=== PATIENT | female | born 1930 | race Hispanic/Latino ===

== ENCOUNTER 2016-10-19 13:22 | Outpatient (CLI) | payer MEDICARE | END 2016-10-19 13:23 | disposition home or self-care (01) | LOC: VAS 13:22 | PROVIDERS: ATTEND Internal Medicine | DX: M79.661 Pain in right lower leg (principal); M79.662 Pain in left lower leg; M79.89 Other specified soft tissue disorders | CPT/HCPCS: 93970 ==

== ENCOUNTER 2018-07-27 19:16 | Inpatient (IN) | payer MEDICARE ==
--- NOTE | 2018-07-27 20:25 | Emergency Department Report ---
Blank Doc - Documentation Documentation: Can't see straight today. Feels that something has happen to her right eye. HX/O Dm 11, HTN, Stent placement Times 4. No pain. EMS was called to evaluated. All started 1000 am.
[2018-07-27 21:16] LABS: Basophils % (Auto) 0.5 % (0.0-1.8); Eosinophils # (Auto) 0.1 K/mm3 (0.0-0.4); Eosinophils % (Auto) 1.5 % (0.0-4.3); Hematocrit 37.3 % (30.3-42.9); Hemoglobin 13.2 gm/dl (10.1-14.3); Lymphocytes # (Auto) 1.8 K/mm3 (1.2-5.4); Lymphocytes % (Auto) 28.1 % (13.4-35.0); Mean Corpuscular HGB Conc 35 % (30-34); Mean Corpuscular Volume 86 fl (79-97); Monocytes # (Auto) 0.6 K/mm3 (0.0-0.8); Platelet Count 171 K/mm3 (140-440); Red Blood Count 4.36 M/mm3 (3.65-5.03); Red Cell Distribution Width 13.5 % (13.2-15.2)
[2018-07-27 21:31] LABS: INR 0.96 (0.87-1.13); Partial Thromboplastin Time 26.4 Sec. (24.2-36.6)
--- NOTE | 2018-07-27 21:44 | Emergency Department Report ---
ED Neuro Deficit HPI - General Chief Complaint: Dizziness Stated Complaint: UNABLE TO WALK STRAIGHT Time Seen by Provider: 07/27/18 21:18 Source: patient, family Mode of arrival: Ambulatory Limitations: No Limitations - History of Present Illness Initial Comments: Mrs. Cole is a very pleasant 88-year-old female with history of diabetes, hypertension, coronary artery disease status post 4 cardiac stents, congestive heart failure, arthritis, hypertension who presents with abnormal eye vision and difficulty walking since 10:30 AM this morning. The patient was up since 4 AM this mornin doing housework. She suddenly realized that she had blurry vision in the right eye with double visio at 1030 AM. Her head felt funny on the right side. When her finally arrived home, he noticed that she was leaning toward the right. No previous history of stroke. She had a recent eye exam this week. PCP is Dr. Wilkes in [place]. Records Coordinator is Dr. Glover. She currently is retired. She lives with her of 15 years. Denies headache. -: Sudden, This morning Location: other (right eye blurred vision difficulty with walking) Presenting Symptoms: Present: Blurred/Loss of Vision History of same: No Place: home Severity: mild Improves With: none Worsens With: none On Anticoagulants: No Context: sudden onset - Related Data Allergies/Adverse Reactions: Allergies Allergy/AdvReac Type Severity Reaction Status Date / Time No Known Allergies Allergy Unverified 10/19/16 13:22 ED Review of Systems ROS: Stated complaint: UNABLE TO WALK STRAIGHT Other details as noted in HPI Comment: All other systems reviewed and negative Constitutional: denies: fever, malaise Respiratory: denies: cough Cardiovascular: denies: chest pain ED Past Medical Hx - Past Medical History Previous Medical History?: Yes Hx Hypertension: Yes Hx CVA: No Hx Heart Attack/AMI: Yes Hx Congestive Heart Failure: Yes Hx Diabetes: Yes Hx Arthritis: Yes - Surgical History Hx Coronary Stent: Yes (4 stents) Additional Surgical History: Herniated Disc - Social History Smoking Status: Never Smoker Substance Use Type: None ED Neuro Physical Exam - General Limitations: No Limitations General appearance: alert, in no apparent distress Suspected Stroke: Yes - Head Head exam: Present: atraumatic, normocephalic - Eye Eye exam: Present: normal appearance - ENT ENT exam: Present: mucous membranes moist - Neck Neck exam: Present: normal inspection - Respiratory Respiratory exam: Present: normal lung sounds bilaterally. Absent: respiratory distress, wheezes, rales, rhonchi - Cardiovascular Cardiovascular Exam: Present: regular rate, normal rhythm, normal heart sounds. Absent: bradycardia, tachycardia, systolic murmur, diastolic murmur, rubs, gallop - GI/Abdominal GI/Abdominal exam: Present: soft, normal bowel sounds. Absent: distended, tenderness, guarding, rebound - Extremities Exam Extremities exam: Present: normal inspection - Back Exam Back exam: Present: normal inspection - Neurological Exam Neurological exam: Present: alert, oriented X3 - NIHSS Assessment Interval: Baseline 1a. Level of Consciousness: alert/keenly responsive 1b. LOC Questions: answers both correctly 1c. LOC Commands: performs tasks correctly 2. Best Gaze: partial gaze palsy 3. Visual: no visual loss 4. Facial Palsy: normal symmetrical movement 5b. Motor Arm Right: no drift 5a. Motor Arm Left: no drift 6a. Motor Leg Left: no drift 6b. Motor Leg Right: no drift 7. Limb Ataxia: absent 8. Sensory: normal 9. Best Language: no aphasia 10. Dysarthria: normal 11. Extinction/Inattention: no abnormality Total Score: 1 Stroke Severity: Minor Stroke - Psychiatric Psychiatric exam: Present: normal affect, normal mood - Skin Skin exam: Present: warm, dry, intact, normal color. Absent: rash ED Course Vital Signs 07/27/18 07/27/18 07/27/18 19:45 20:19 21:28 Temperature 98.0 F 98 F Pulse Rate 77 69 65 Respiratory 16 18 17 Rate Blood Pressure 174/72 174/72 Blood Pressure 207/72 [Right] O2 Sat by Pulse 95 94 98 Oximetry 07/27/18 07/27/18 07/27/18 21:49 22:08 22:32 Temperature Pulse Rate 62 65 64 Respiratory 14 Rate Blood Pressure 207/72 Blood Pressure 153/53 [Right] O2 Sat by Pulse 98 Oximetry - Lab Data Result diagrams: 07/27/18 22:27 07/27/18 22:27 Lab Results 07/27/18 07/27/18 07/27/18 Range/Units 20:53 20:53 20:53 WBC 6.5 (4.5-11.0) K/mm3 RBC 4.36 (3.65-5.03) M/mm3 Hgb 13.2 (10.1-14.3) gm/dl Hct 37.3 (30.3-42.9) % MCV 86 (79-97) fl MCH 30 (28-32) pg MCHC 35 H (30-34) % RDW 13.5 (13.2-15.2) % Plt Count 171 (140-440) K/mm3 Lymph % (Auto) 28.1 (13.4-35.0) % [place] % (Auto) 9.0 H (0.0-7.3) % Eos % (Auto) 1.5 (0.0-4.3) % Baso % (Auto) 0.5 (0.0-1.8) % Lymph # 1.8 (1.2-5.4) K/mm3 [place] # 0.6 (0.0-0.8) K/mm3 Eos # 0.1 (0.0-0.4) K/mm3 Baso # 0.0 (0.0-0.1) K/mm3 Seg Neutrophils % 60.9 (40.0-70.0) % Seg Neutrophils # 4.0 (1.8-7.7) K/mm3 PT 13.4 (12.2-14.9) Sec. INR 0.96 (0.87-1.13) APTT 26.4 (24.2-36.6) Sec. Sodium 141 (137-145) mmol/L Potassium 4.2 (3.6-5.0) mmol/L Chloride 100.4 (98-107) mmol/L Carbon Dioxide 29 (22-30) mmol/L Anion Gap 16 mmol/L BUN 13 (7-17) mg/dL Creatinine 0.6 L (0.7-1.2) mg/dL Estimated GFR > 60 ml/min BUN/Creatinine Ratio 22 % Glucose 146 H (65-100) mg/dL POC Glucose (70-105) Calcium 9.7 (8.4-10.2) mg/dL Total Bilirubin 0.50 (0.1-1.2) mg/dL AST 19 (5-40) units/L ALT 16 (7-56) units/L Alkaline Phosphatase 75 (35-129) units/L Troponin T (0.00-0.029) ng/mL Total Protein 6.5 (6.3-8.2) g/dL Albumin 4.3 (3.9-5) g/dL Albumin/Globulin Ratio 2.0 % Urine Color (Yellow) Urine Turbidity (Clear) Urine pH (5.0-7.0) Ur Specific [place] (1.003-1.030) Urine Protein (Negative) mg/dL Urine Glucose (UA) (Negative) mg/dL Urine Ketones (Negative) mg/dL Urine Blood (Negative) Urine Nitrite (Negative) Urine Bilirubin (Negative) Urine Urobilinogen (<2.0) mg/dL Ur Leukocyte Esterase (Negative) Urine WBC (Auto) (0.0-6.0) /HPF Urine RBC (Auto) (0.0-6.0) /HPF Plasma/Serum Alcohol (0-0.07) % 07/27/18 07/27/18 07/27/18 Range/Units 22:27 22:27 22:27 WBC 6.3 (4.5-11.0) K/mm3 RBC 4.39 (3.65-5.03) M/mm3 Hgb 13.0 (10.1-14.3) gm/dl Hct 38.0 (30.3-42.9) % MCV 87 (79-97) fl MCH 30 (28-32) pg MCHC 34 (30-34) % RDW 13.3 (13.2-15.2) % Plt Count 161 (140-440) K/mm3 Lymph % (Auto) 28.4 (13.4-35.0) % [place] % (Auto) 10.3 H (0.0-7.3) % Eos % (Auto) 1.4 (0.0-4.3) % Baso % (Auto) 0.5 (0.0-1.8) % Lymph # 1.8 (1.2-5.4) K/mm3 [place] # 0.6 (0.0-0.8) K/mm3 Eos # 0.1 (0.0-0.4) K/mm3 Baso # 0.0 (0.0-0.1) K/mm3 Seg Neutrophils % 59.4 (40.0-70.0) % Seg Neutrophils # 3.7 (1.8-7.7) K/mm3 PT 13.6 (12.2-14.9) Sec. INR 0.98 (0.87-1.13) APTT 26.5 (24.2-36.6) Sec. Sodium 140 (137-145) mmol/L Potassium 4.3 (3.6-5.0) mmol/L Chloride 99.6 (98-107) mmol/L Carbon Dioxide 30 (22-30) mmol/L Anion Gap 15 mmol/L BUN 13 (7-17) mg/dL Creatinine 0.6 L (0.7-1.2) mg/dL Estimated GFR > 60 ml/min BUN/Creatinine Ratio 22 % Glucose 141 H (65-100) mg/dL POC Glucose (70-105) Calcium 9.5 (8.4-10.2) mg/dL Total Bilirubin (0.1-1.2) mg/dL AST (5-40) units/L ALT (7-56) units/L Alkaline Phosphatase (35-129) units/L Troponin T < 0.010 (0.00-0.029) ng/mL Total Protein (6.3-8.2) g/dL Albumin (3.9-5) g/dL Albumin/Globulin Ratio % Urine Color (Yellow) Urine Turbidity (Clear) Urine pH (5.0-7.0) Ur Specific [place] (1.003-1.030) Urine Protein (Negative) mg/dL Urine Glucose (UA) (Negative) mg/dL Urine Ketones (Negative) mg/dL Urine Blood (Negative) Urine Nitrite (Negative) Urine Bilirubin (Negative) Urine Urobilinogen (<2.0) mg/dL Ur Leukocyte Esterase (Negative) Urine WBC (Auto) (0.0-6.0) /HPF Urine RBC (Auto) (0.0-6.0) /HPF Plasma/Serum Alcohol (0-0.07) % 07/27/18 07/27/18 07/27/18 Range/Units 22:27 23:19 23:30 WBC (4.5-11.0) K/mm3 RBC (3.65-5.03) M/mm3 Hgb (10.1-14.3) gm/dl Hct (30.3-42.9) % MCV (79-97) fl MCH (28-32) pg MCHC (30-34) % RDW (13.2-15.2) % Plt Count (140-440) K/mm3 Lymph % (Auto) (13.4-35.0) % [place] % (Auto) (0.0-7.3) % Eos % (Auto) (0.0-4.3) % Baso % (Auto) (0.0-1.8) % Lymph # (1.2-5.4) K/mm3 [place] # (0.0-0.8) K/mm3 Eos # (0.0-0.4) K/mm3 Baso # (0.0-0.1) K/mm3 Seg Neutrophils % (40.0-70.0) % Seg Neutrophils # (1.8-7.7) K/mm3 PT (12.2-14.9) Sec. INR (0.87-1.13) APTT (24.2-36.6) Sec. Sodium (137-145) mmol/L Potassium (3.6-5.0) mmol/L Chloride (98-107) mmol/L Carbon Dioxide (22-30) mmol/L Anion Gap mmol/L BUN (7-17) mg/dL Creatinine (0.7-1.2) mg/dL Estimated GFR ml/min BUN/Creatinine Ratio % Glucose (65-100) mg/dL POC Glucose 128 H (70-105) Calcium (8.4-10.2) mg/dL Total Bilirubin (0.1-1.2) mg/dL AST (5-40) units/L ALT (7-56) units/L Alkaline Phosphatase (35-129) units/L Troponin T (0.00-0.029) ng/mL Total Protein (6.3-8.2) g/dL Albumin (3.9-5) g/dL Albumin/Globulin Ratio % Urine Color Colorless (Yellow) Urine Turbidity Clear (Clear) Urine pH 6.0 (5.0-7.0) Ur Specific [place] 1.006 (1.003-1.030) Urine Protein <15 mg/dl (Negative) mg/dL Urine Glucose (UA) Neg (Negative) mg/dL Urine Ketones Neg (Negative) mg/dL Urine Blood Neg (Negative) Urine Nitrite Neg (Negative) Urine Bilirubin Neg (Negative) Urine Urobilinogen < 2.0 (<2.0) mg/dL Ur Leukocyte Esterase Tr (Negative) Urine WBC (Auto) 1.0 (0.0-6.0) /HPF Urine RBC (Auto) < 1.0 (0.0-6.0) /HPF Plasma/Serum Alcohol < 0.01 (0-0.07) % - EKG Data -: EKG Interpreted by Me EKG shows normal: sinus rhythm, axis, intervals, QRS complexes, ST-T waves Rate: normal - Radiology Data Radiology results: report reviewed CT head without acute process, CT angiogram neck and head without significant stenosis or aneurysm. - Medical Decision Making Mrs. Cole presents with findings of cranial nerve palsy. On exam mild gait ataxia. I discussed case with all neurologist Dr. Zhu. He recommended urgent CTA to exclude intracranial aneurysm. TPA not indicated due to time of onset of symptoms and likely isolated cranial nerve palsy. Admitted to hospitalist service in fair condition. Blood pressure improved with IV hydralazine. Aspirin also provided in the ED. Critical Care Time: Yes Critical care time in (mins) excluding proc time.: 40 Critical care attestation.: If time is entered above; I have spent that time in minutes in the direct care of this critically ill patient, excluding procedure time. 40 minutes of critical care time excluding procedures were used in the care of the patient. Patient required multiple assessments and interventions. I reviewed the electronic medical record. I spoke with consultants involved in the care of the patient. ED Disposition Clinical Impression: Cranial nerve III palsy, Acute CVA (cerebrovascular accident), Visual disturbance, Ataxic gait, Hypertensive urgency Disposition: DC-09 OP ADMIT IP TO THIS HOSP Is pt being admited?: Yes Does the pt Need Aspirin: No Condition: Stable
[2018-07-27 21:45] LABS: Alanine Aminotransferase 16 units/L (7-56); Albumin 4.3 g/dL (3.9-5); BUN/Creatinine Ratio 22; Blood Urea Nitrogen 13 mg/dL (7-17); Calcium 9.7 mg/dL (8.4-10.2); Hemolysis Index 5
[2018-07-27] MEDS ORDERED: APRESOLINE IV ONE (22:03)
--- NOTE | 2018-07-27 22:21 | Cat Scan Report ---
PROCEDURE: CT HEAD/BRAIN WO CON TECHNIQUE: Computerized tomography of the head was performed without contrast material. CT DOSE LENGTH PRODUCT: mGycm HISTORY: Stroke symptoms COMPARISONS: None . FINDINGS: Skull and scalp: Normal . Paranasal sinuses: Normal . Ventricles and subarachnoid spaces: Prominent consistent with cerebral atrophy appropriate for patie nt's age. . Cerebrum: Moderate degree of bilateral cerebral nonspecific white matter hypodensity is noted most li myrna representing chronic microangiopathy. An acute intra-axial or extra-axial hemorrhage or mass eff ect is not identified.. Cerebellum and brainstem: No evidence of hemorrhage, acute infarction or mass . Vasculature: Atherosclerotic calcification is noted involving internal carotid and vertebral arterie s. . Other: None . ASPECTS: 10 IMPRESSION: No acute intracranial abnormality. This document is electronically signed by Thor Lindo MD., July 27 2018 10:19:18 PM ET
[2018-07-27 22:42] LABS: Basophils % (Auto) 0.5 % (0.0-1.8); Eosinophils # (Auto) 0.1 K/mm3 (0.0-0.4); Eosinophils % (Auto) 1.4 % (0.0-4.3); Lymphocytes # (Auto) 1.8 K/mm3 (1.2-5.4); Lymphocytes % (Auto) 28.4 % (13.4-35.0); Mean Corpuscular HGB Conc 34 % (30-34); Mean Corpuscular Volume 87 fl (79-97); Monocytes # (Auto) 0.6 K/mm3 (0.0-0.8); Monocytes % (Auto) 10.3 % (0.0-7.3); Platelet Count 161 K/mm3 (140-440); Red Blood Count 4.39 M/mm3 (3.65-5.03); Red Cell Distribution Width 13.3 % (13.2-15.2)
[2018-07-27 22:49] LABS: INR 0.98 (0.87-1.13)
[2018-07-27 22:50] LABS: BUN/Creatinine Ratio 22; Blood Urea Nitrogen 13 mg/dL (7-17); Calcium 9.5 mg/dL (8.4-10.2); Hemolysis Index 7; Partial Thromboplastin Time 26.5 Sec. (24.2-36.6)
--- NOTE | 2018-07-27 23:05 | XRay Report ---
PROCEDURE: XR CHEST 1V AP TECHNIQUE: PROCEDURE: XR CHEST 1V AP TECHNIQUE: Chest radiograph single view. HISTORY: CVA COMPARISONS: None . FINDINGS: Heart: Normal. Mediastinum/Vessels: Normal. Lungs/Pleural space: Lungs are hyperinflated. There are no confluent infiltrates or mass lesions. Pl eural spaces are clear.. Bony thorax: No acute osseous abnormality. Life support devices: None. IMPRESSION: COPD No acute pulmonary process. This document is electronically signed by Thor Lindo MD., July 27 2018 11:03:27 PM ET
[2018-07-28 00:03] LABS: Bilirubin,Urine NEG (Negative); Blood,Urine NEG (Negative); Color,Urine Colorless (Yellow); Protein,Urine <15 mg/dL mg/dL (Negative); RBC,Urine < 1.0 /HPF (0.0-6.0); Urobilinogen,Urine < 2.0 mg/dL (<2.0)
--- NOTE | 2018-07-28 00:09 | Cat Scan Report ---
PROCEDURE: CT ANGIO NECK TECHNIQUE: Computerized tomographic angiography of the neck was performed after the IV injection of iodinated nonionic contrast including image processing. The image data was postprocessed using 2-dime nsional multiplanar reformatted (MPR) and 3-dimensional (MIP and/or volume rendered) techniques. HISTORY: stroke sx COMPARISONS: None . Note: Assessment of carotid artery stenosis is based on measurement of the distal internal carotid a rtery diameter as the denominator for stenosis calculations and the [place] Symptomatic Caroti d Endarterectomy Trial (NASCET) stenosis criteria. FINDINGS: Sinuses: Normal . Non vascular cervical structures: No significant abnormality . Aortic arch: The aortic atelectasis has a normal caliber without aneurysm. Mild atherosclerosis of t he aorta and branching vessels is noted . Right carotid artery: Mild atherosclerosis of the carotid bulb. No occlusion or stenosis . Left carotid artery: Mild atherosclerosis of the carotid bulb. No occlusion or stenosis . Vertebral arteries: Normal . IMPRESSION: There is no evidence of occlusion or hemodynamically significant stenosis in the carotid arteries. Mild atherosclerosis of the arterial structures including the carotid bulbs is noted. . This document is electronically signed by Mindy Mclean DO., July 28 2018 12:07:25 AM ET
[2018-07-28] MEDS ORDERED: BABY ASPIRIN PO ONE (00:15)
--- NOTE | 2018-07-28 00:25 | Cat Scan Report ---
PROCEDURE: CT ANGIO HEAD TECHNIQUE: Computerized tomographic angiography of the head was performed after the IV injection of iodinated nonionic contrast including image processing. The image data was postprocessed using 2-dim ensional multiplanar reformatted (MPR) and 3-dimensional (MIP and/or volume rendered) techniques. CT DOSE LENGTH PRODUCT: mGycm HISTORY: stroke sx COMPARISONS: CT of the head dated 07/27/2018 . FINDINGS: Carotid siphon: There is minimal calcified plaque at the cavernous portions of internal carotid david roxie. There is no stenosis. . Anterior cerebral: Normal . Middle cerebral: Normal . Posterior cerebral: Normal . Vertebral arteries including basilar: Normal . Aneurysms: None . Dural sinuses: Normal. IMPRESSION: There is no intracranial arterial stenosis, dissection or occlusion. There is no aneurysm or vascular malformation. . This document is electronically signed by Roberto Taylor MD., July 28 2018 12:23:02 AM ET
[2018-07-28] MEDS ORDERED: D50W (25GM) Syringe IV PRN (01:37)
[2018-07-28] MEDS ORDERED: ZOFRAN IV PRN (01:39)
[2018-07-28] MEDS ORDERED: TYLENOL PO PRN (06:20)
[2018-07-28] MEDS: HumuLIN R SUB-Q SCH ×4 (08:00→22:35)
--- NOTE | 2018-07-28 08:41 | History and Physical Report ---
CHIEF COMPLAINT: Heaviness in the eyes. Other complaints include ataxic gait or wobbly gait. HISTORY OF PRESENT ILLNESS: The patient is an 88-year-old female, who was noted to have difficulty rolling the right eye from one corner to the other. The patient was told by the that her right eye was unable to move freely and also the patient said that when she walks she was noted to be leaning towards the right side without good balance. There is also history of dizziness with no altered mental status. The patient denies history of weakness of any side of the body and denied history of tingling or numbness and presented for evaluation. PAST MEDICAL HISTORY: Pertinent for hypertension, coronary artery disease, status post myocardial infarction with congestive heart failure, diabetes mellitus, arthritis. PAST SURGICAL HISTORY: Pertinent for coronary stent placement and herniated disk repair. FAMILY HISTORY: Family history is noncontributory. SOCIAL HISTORY: The patient does not smoke, does not drink alcohol and does not use illicit drugs. MEDICATIONS: The patient's medications are not known. ALLERGIES: There are no known drug allergies. REVIEW OF SYSTEMS: CONSTITUTIONAL: There is no fever, no chills, no diaphoresis. HEENT: There is no headache or sore throat. CARDIOVASCULAR SYSTEM: There is no chest pain or orthopnea. RESPIRATORY SYSTEM: There is no shortness of breath or cough. GASTROINTESTINAL SYSTEM: There is no nausea, no vomiting, no abdominal pain, diarrhea or constipation. NEUROLOGICAL SYSTEM: Ataxic gait noted. Difficulty in rolling right eyeball noted. Blurry vision noted. There is no altered mental status. MUSCULOSKELETAL SYSTEM: There is no joint pain or swelling. DERMATOLOGICAL SYSTEM: There is no skin rash or itching. GENITOURINARY SYSTEM: There is no dysuria, hematuria or flank pain. Rest of system review is normal. PHYSICAL EXAMINATION: GENERAL: At the time of exam, the patient was found to be alert, oriented x 3 and not in acute distress. VITAL SIGNS: Shows normal temperature of 98 degrees Fahrenheit, pulse of 77, respiration 16, blood pressure 174/72, O2 sat of 95% on room air. HEENT: Show pupils to be equal, round, reactive to light and accommodating. Extraocular muscles are intact. NECK: Supple with no JVD or carotid bruits. CARDIOVASCULAR SYSTEM: Showed normal first and second heart sounds with no gallops or murmurs. RESPIRATORY SYSTEM: Show good air entry on both sides of the lungs with no abnormal breath sounds. GASTROINTESTINAL SYSTEM: Show abdomen to be full, soft, nontender with no organomegaly or rigidity. NEUROLOGIC: Showed the patient to be unable to adduct the right eye. There is no weakness on all the limbs and no loss of sensory function. MUSCULOSKELETAL SYSTEM: Show no joint swelling or tenderness. DERMATOLOGICAL SYSTEM: Show no skin rash. GENITOURINARY SYSTEM: Showing no costovertebral angle tenderness. PERTINENT LABORATORY DATA AND IMAGING STUDIES: The patient has CT of the head without contrast done that shows normal skull, normal nasal sinuses. There is finding of prominent species in the ventricles and supra arachnoid consistent with cerebral atrophy appropriate for the patient's age. There is finding of moderate degree of bilateral cerebral nonspecific white matter hypodensity according to the radiologist. That represent chronic microangiopathy. There is no finding of any mass effect or bleeding and no evidence of hemorrhage or infarct was identified. Atherosclerotic calcification is noted involving internal carotid and vertebral arteries. The impression is no acute intracranial abnormality. The patient had a CT angiogram of the head and neck done with no acute findings. The patient's chest x-ray shows no acute findings. Lab results: The patient has CBC done that came back normal except for elevated monocyte count of 10.3% and CBC differential. Coagulation studies were remarkable. The patient's chemistry was unremarkable. Urinalysis was unremarkable. Toxicology screen was unremarkable. DIAGNOSES: 1. Cerebrovascular accident. 2. Right eye 3rd cranial nerve palsy. PLAN OF CARE: 1. The patient will be admitted to telemetry. 2. The patient will have MRI of the brain without contrast done this morning. 3. The patient will have bilateral carotid Doppler done this morning. 4. The patient will also have to 2D echo done this morning. 5. The patient will be on aspirin 325 mg by mouth daily. 6. The patient will be on IV Zofran 4 mg every 8 hours as needed for nausea and vomiting and Tylenol 650 mg by mouth every 4 hours for fever and headache. 7. The patient will be on Accu-Chek a.c. and at bedtime, followed by low-dose sliding scale using regular insulin coverage. The patient will be seen by a neurologist when available since there is no Neurology coverage during the weekend. The patient's home medication will be started when they are known. JOB# [id number] OCN/BELLE EHRNANDEZD
--- NOTE | 2018-07-28 10:42 | Progress Note ---
Subjective Date of service: 07/28/18 Interval history: minimal plaque noted on the CTA not candidate for surgery will gety MRI hx of visual problems see ED note would recommend that we r/o temporal arteriitis Objective - Vital Sign Vital Signs - 12hr 07/27/18 07/28/18 07/28/18 23:08 00:00 00:30 Temperature Pulse Rate 68 66 66 Respiratory 14 13 13 Rate Blood Pressure 167/63 Blood Pressure 167/63 [Right] O2 Sat by Pulse 97 99 99 Oximetry 07/28/18 07/28/18 07/28/18 00:31 00:41 00:51 Temperature Pulse Rate 62 62 70 Respiratory 15 15 17 Rate Blood Pressure 141/52 141/52 133/48 Blood Pressure [Right] O2 Sat by Pulse 93 93 95 Oximetry 07/28/18 07/28/18 07/28/18 01:01 01:11 01:21 Temperature Pulse Rate 61 59 L 60 Respiratory 13 15 15 Rate Blood Pressure 124/52 124/52 124/52 Blood Pressure [Right] O2 Sat by Pulse 94 94 94 Oximetry 07/28/18 07/28/18 07/28/18 01:51 02:24 02:37 Temperature 98.3 F Pulse Rate 69 59 L 85 Respiratory 16 18 Rate Blood Pressure 171/56 Blood Pressure 136/46 [Right] O2 Sat by Pulse 93 Oximetry 07/28/18 07/28/18 04:35 05:21 Temperature 97.8 F Pulse Rate 62 63 Respiratory 18 Rate Blood Pressure 148/57 Blood Pressure [Right] O2 Sat by Pulse 95 Oximetry - Laboratory Findings CBC and BMP: 07/27/18 22:27 07/27/18 22:27 Abnormal Lab Findings: Abnormal Labs 07/27/18 07/27/18 07/27/18 20:53 20:53 22:27 MCHC 35 H [place] % (Auto) 9.0 H 10.3 H Creatinine 0.6 L Glucose 146 H POC Glucose 07/27/18 07/27/18 07/28/18 22:27 23:30 08:11 MCHC [place] % (Auto) Creatinine 0.6 L Glucose 141 H POC Glucose 128 H 127 H
--- NOTE | 2018-07-28 11:13 | Vascular Lab Report ---
PROCEDURE: VL CAROTID DUPLEX BILAT TECHNIQUE: Carotid duplex Doppler ultrasound HISTORY: CVA COMPARISON: None FINDINGS: There is moderate atherosclerotic plaque present bilaterally with common and internal carotid arterie s. There is no abnormal elevation in flow velocity seen on either the right or left. The ICA/CCA velocit y ratios are normal, 1.14 on the right 0.90 on the left. Findings indicate no stenosis of hemodynamic significance, specifically these findings correspond to stenoses of less than 50%. Vertebral artery flow is antegrade bilaterally. IMPRESSION: No evidence of any hemodynamically significant stenosis. Moderate atherosclerotic plaque . This document is electronically signed by Alfreda Pabon MD., July 28 2018 11:11:19 AM ET
[2018-07-28] MEDS: ASPIRIN PO SCH (12:07)
--- NOTE | 2018-07-28 14:15 | Event Note ---
Date: 07/28/18 Patient presented with heaviness right eye, unsteady gait. i have seen and examined her. Awaiting MRI.
[2018-07-28 17:54] LABS: Chol/HDL Ratio 2.62 %
[2018-07-28] MEDS: NORVASC PO SCH (18:05)
[2018-07-28] MEDS: APRESOLINE IV PRN (22:36)
--- NOTE | 2018-07-29 09:16 | Consultation ---
History of Present Illness - Reason for Consult Consult date: 07/29/18 - History of Present Illness patient seen and reassessed she is alert and stable eye problems are better sed rate not back the B12 is high normal and cholesterol is normal the remainder of lab's are basically OK in my opinion mild elevation of glucose not likely to cause eye problem of this nature suspect that this was re-solving brain stem stroke a/w diplopia as she has just been to [facility] and has normal exam exam for 88 yo is very normal at this time there is no eye movement disorder and tyhe pupils are equal there is no ptosis no signs of myasthenia otherwise Impression: Brain Stem Stroke resolved rec aspitrin therapy await MRI explained test results to the patient Thanks Medications and Allergies Allergies Allergy/AdvReac Type Severity Reaction Status Date / Time No Known Allergies Allergy Verified 07/28/18 01:51 Home Medications Medication Instructions Recorded Confirmed Last Taken Type Furosemide [Lasix TAB] 40 mg PO QDAY 07/29/18 07/29/18 Unknown History Linagliptin [Tradjenta] 5 mg PO QDAY 07/29/18 07/29/18 Unknown History Metoprolol Succinate [Toprol Xl] 25 mg PO DAILY 07/29/18 07/29/18 Unknown History Olmesartan (Nf) [Benicar (Nf)] 20 mg PO QDAY 07/29/18 07/29/18 Unknown History Plavix 75 mg PO DAILY 07/29/18 07/29/18 Unknown History Pravastatin [Pravachol] 40 mg PO QHS 07/29/18 07/29/18 Unknown History cloNIDine [Catapres] 0.1 mg PO BID 07/29/18 07/29/18 Unknown History glipiZIDE [Glipizide] 5 mg PO BIDAC 07/29/18 07/29/18 Unknown History hydrALAZINE [Apresoline] 25 mg PO BID 07/29/18 07/29/18 Unknown History metFORMIN [Glucophage] 500 mg PO BID 07/29/18 07/29/18 Unknown History Active Meds: Active Medications Acetaminophen (Tylenol) 650 mg PO Q6H PRN PRN Reason: Headache Amlodipine Besylate (Norvasc) 5 mg PO QDAY [facility] Last Admin: 07/28/18 18:05 Dose: 5 mg Documented by: Aspirin (Aspirin) 325 mg PO QDAY [facility] Last Admin: 07/28/18 12:07 Dose: 325 mg Documented by: Dextrose (D50w (25gm) Syringe) 50 ml IV PRN PRN PRN Reason: Hypoglycemia Hydralazine HCl (Apresoline) 10 mg IV Q4HR PRN PRN Reason: SBP>170 or DBP>110 Last Admin: 07/28/18 22:36 Dose: 10 mg Documented by: Insulin Human Regular (Humulin R) 0 units SUB-Q AC [facility]; Protocol Last Admin: 07/28/18 17:37 Dose: Not Given Documented by: Insulin Human Regular (Humulin R) 0 units SUB-Q QHS [facility]; Protocol Last Admin: 07/28/18 22:35 Dose: Not Given Documented by: Ondansetron HCl (Zofran) 4 mg IV Q8H PRN PRN Reason: Nausea And Vomiting Exam - Constitutional Vitals: Temp Pulse Resp BP Pulse Ox 98.2 F 66 18 143/67 96 07/29/18 07:51 07/29/18 07:51 07/29/18 07:51 07/29/18 07:51 07/29/18 07:51 Results - Labs CBC & Chem 7: 07/27/18 22:27 07/27/18 22:27 Labs: Abnormal lab results 07/28/18 Range/Units 12:46 POC Glucose 136 H (70-105)
--- NOTE | 2018-07-29 09:29 | Progress Note ---
Subjective Date of service: 07/29/18 Interval history: went over the carotid u/s and there is no surgical lesion only mild athero changes expected at this age...the ECHO shows expected age related changes to valve the aortic regurg description I would leave to cardiology to comment on... it could " conceivably" be source of clot none noted in real time but at incident can not r/o Objective - Vital Sign Vital Signs - 12hr 07/28/18 07/28/18 07/28/18 21:31 22:36 23:49 Temperature 98.3 F 97.6 F Pulse Rate 65 70 74 Respiratory 18 20 Rate Blood Pressure 189/63 189/63 163/54 Blood Pressure [Right] O2 Sat by Pulse 91 96 Oximetry 07/29/18 07/29/18 04:50 07:51 Temperature 98.2 F Pulse Rate 79 66 Respiratory 18 Rate Blood Pressure Blood Pressure 143/67 [Right] O2 Sat by Pulse 96 Oximetry - Laboratory Findings CBC and BMP: 07/27/18 22:27 07/27/18 22:27 Abnormal Lab Findings: Abnormal Labs 07/27/18 07/27/18 07/27/18 20:53 20:53 22:27 MCHC 35 H [place] % (Auto) 9.0 H 10.3 H Creatinine 0.6 L Glucose 146 H POC Glucose 07/27/18 07/27/18 07/28/18 22:27 23:30 08:11 MCHC [place] % (Auto) Creatinine 0.6 L Glucose 141 H POC Glucose 128 H 127 H 07/28/18 12:46 MCHC [place] % (Auto) Creatinine Glucose POC Glucose 136 H
[2018-07-29] MEDS: NORVASC PO SCH (09:50)
[2018-07-29] MEDS: HumuLIN R SUB-Q SCH ×2 (09:51→21:25)
[2018-07-29] MEDS: ASPIRIN PO SCH (09:52)
--- NOTE | 2018-07-29 12:47 | Progress Note ---
Assessment and Plan Assessment and plan: Heaviness right eye. For MRI Brain to r/o stroke Unsteady gait MRI Brain ordered Neurology following CAD Stable No chest pain Hypertensive urgency BP stable Diabetes mellitus type 2. Accuchek qac and hs Full code status History Interval history: Heaviness right eye Unsteady gait Hospitalist Physical - Constitutional Vitals: Temp Pulse Resp BP Pulse Ox 98.2 F 86 18 140/83 96 07/29/18 07:51 07/29/18 09:50 07/29/18 07:51 07/29/18 09:50 07/29/18 12:42 General appearance: Present: no acute distress - EENT ENT: hearing intact - Neck Neck: Present: supple - Respiratory Respiratory effort: normal Respiratory: bilateral: CTA, negative: diminished, rales, rhonchi - Cardiovascular Rhythm: regular Heart Sounds: Present: S1 & S2 - Extremities Extremities: no ischemia, No edema, normal temperature, normal color - Abdominal General gastrointestinal: soft, non-tender, non-distended, normal bowel sounds - Integumentary Integumentary: Present: clear, warm, dry - Psychiatric Psychiatric: appropriate mood/affect, intact judgment & insight Results - Labs CBC & Chem 7: 07/27/18 22:27 07/27/18 22:27 Labs: Laboratory Last Values WBC 6.3 K/mm3 (4.5-11.0) 07/27/18 22:27 RBC 4.39 M/mm3 (3.65-5.03) 07/27/18 22:27 Hgb 13.0 gm/dl (10.1-14.3) 07/27/18 22:27 Hct 38.0 % (30.3-42.9) 07/27/18 22:27 MCV 87 fl (79-97) 07/27/18 22:27 MCH 30 pg (28-32) 07/27/18 22:27 MCHC 34 % (30-34) 07/27/18 22:27 RDW 13.3 % (13.2-15.2) 07/27/18 22:27 Plt Count 161 K/mm3 (140-440) 07/27/18 22:27 Lymph % (Auto) 28.4 % (13.4-35.0) 07/27/18 22:27 [place] % (Auto) 10.3 % (0.0-7.3) H 07/27/18 22:27 Eos % (Auto) 1.4 % (0.0-4.3) 07/27/18 22:27 Baso % (Auto) 0.5 % (0.0-1.8) 07/27/18 22:27 Lymph # 1.8 K/mm3 (1.2-5.4) 07/27/18 22: [place] # 0.6 K/mm3 (0.0-0.8) 07/27/18 22: Eos # 0.1 K/mm3 (0.0-0.4) 07/27/18 22: Baso # 0.0 K/mm3 (0.0-0.1) 07/27/18 22: Seg Neutrophils % 59.4 % (40.0-70.0) 07/27/18 22: Seg Neutrophils # 3.7 K/mm3 (1.8-7.7) 07/27/18 22:27 ESR 6 mm/Hr (0-20) 07/28/18 10:52 PT 13.6 Sec. (12.2-14.9) 07/27/18 22:27 INR 0.98 (0.87-1.13) 07/27/18 22:27 APTT 26.5 Sec. (24.2-36.6) 07/27/18 22:27 Sodium 140 mmol/L (137-145) 07/27/18 22:27 Potassium 4.3 mmol/L (3.6-5.0) 07/27/18 22:27 Chloride 99.6 mmol/L (98-107) 07/27/18 22:27 Carbon Dioxide 30 mmol/L (22-30) 07/27/18 22:27 Anion Gap 15 mmol/L 07/27/18 22:27 BUN 13 mg/dL (7-17) 07/27/18 22:27 Creatinine 0.6 mg/dL (0.7-1.2) L 07/27/18 22:27 Estimated GFR > 60 ml/min 07/27/18 22:27 BUN/Creatinine Ratio 22 % 07/27/18 22:27 Glucose 141 mg/dL (65-100) H 07/27/18 22:27 POC Glucose 142 (70-105) H 07/29/18 11:54 Calcium 9.5 mg/dL (8.4-10.2) 07/27/18 22:27 Total Bilirubin 0.50 mg/dL (0.1-1.2) 07/27/18 20:53 AST 19 units/L (5-40) 07/27/18 20:53 ALT 16 units/L (7-56) 07/27/18 20:53 Alkaline Phosphatase 75 units/L (35-129) 07/27/18 20:53 Troponin T < 0.010 ng/mL (0.00-0.029) 07/27/18 22:27 Total Protein 6.5 g/dL (6.3-8.2) 07/27/18 20:53 Albumin 4.3 g/dL (3.9-5) 07/27/18 20:53 Albumin/Globulin Ratio 2.0 % 07/27/18 20:53 Triglycerides 112 mg/dL (2-149) 07/28/18 10:52 Cholesterol 134 mg/dL (50-199) 07/28/18 10:52 LDL Cholesterol Direct 73 mg/dL (50-130) 07/28/18 10:52 HDL Cholesterol 51 mg/dL (40-59) 07/28/18 10:52 Cholesterol/HDL Ratio 2.62 % 07/28/18 10:52 Vitamin B12 782.9 pg/mL (211-911) 07/28/18 10:52 Urine Color Colorless (Yellow) 07/27/18 23:19 Urine Turbidity Clear (Clear) 07/27/18 23:19 Urine pH 6.0 (5.0-7.0) 07/27/18 23:19 Ur Specific [place] 1.006 (1.003-1.030) 07/27/18 23:19 Urine Protein <15 mg/dl mg/dL (Negative) 07/27/18 23:19 Urine Glucose (UA) Neg mg/dL (Negative) 07/27/18 23: Urine Ketones Neg mg/dL (Negative) 07/27/18 23:19 Urine Blood Neg (Negative) 07/27/18 23:19 Urine Nitrite Neg (Negative) 07/27/18 23:19 Urine Bilirubin Neg (Negative) 07/27/18 23: Urine Urobilinogen < 2.0 mg/dL (<2.0) 07/27/18 23:19 Ur Leukocyte Esterase Tr (Negative) 07/27/18 23:19 Urine WBC (Auto) 1.0 /HPF (0.0-6.0) 07/27/18 23:19 Urine RBC (Auto) < 1.0 /HPF (0.0-6.0) 07/27/18 23:19 Plasma/Serum Alcohol < 0.01 % (0-0.07) 07/27/18 22:27
[2018-07-29] MEDS: HEPARIN SUB-Q SCH (21:26)
[2018-07-30] MEDS: HumuLIN R SUB-Q SCH ×2 (00:35→07:40)
[2018-07-30] MEDS: APRESOLINE IV PRN ×2 (00:41→05:41)
[2018-07-30 07:46] VITALS: BP 166/59
--- NOTE | 2018-07-30 11:12 | Magnetic Resonance Report ---
MRI OF THE BRAIN WITHOUT CONTRAST: HISTORY: CVA PROCEDURE: Multiplanar, multisequence MR imaging of the brain without IV contrast was performed. FINDINGS: There are 2 focal areas of diffusion restriction in the right side of the richelle measuring up to 7-8 mm each. No evidence for hemorrhage, mass or extra-axial fluid collection. Advanced volume loss and nonspecific chronic white matter changes are identified. No chronic infarct. The midline structures are central. The basal cisterns are patent. Normal ventricular size. The orbital cavities and sella turcica demonstrate no abnormality. The visualized paranasal sinuses and mastoid air cells are well aerated. IMPRESSION: There are 2 subacute lacunar infarcts in the right richelle as described above. Advanced volume loss and chronic white matter changes.
[2018-07-30] MEDS: NORVASC PO SCH (11:51)
[2018-07-30] MEDS: HEPARIN SUB-Q SCH (11:52)
[2018-07-30] MEDS: ASPIRIN PO SCH (11:52)
--- NOTE | 2018-07-30 13:46 | Discharge Summary ---
Providers - Providers Date of Admission: 07/28/18 00:20 Date of discharge: 07/30/18 Attending physician: COREY MORRIS 07/28/18 06:00 Physical Therapy Evaluation and Treat [CONS] Routine Comment: Reason For Exam: UNSTEADY GAIT 07/28/18 08:48 Consult to Physician [CONS] Routine Comment: Consulting Provider: JOSE FRANCISCO HEARD Physician Instructions: Reason For Exam: unsteady gait, blurred vision,double vision Primary care physician: ROBERT LYNN MD Hospitalization Condition: Fair Hospital course: Patient is 88 yo with hypertension, CAD. She presented with unsteady gait, heaviness right eye and double vision. She was seen and evaluated in ED. a CT head was unremarkable. Patient was admitted to rule out stroke. She was evaluated by Neurologist. MRI confirmed 2 ischemic lesions on right richelle. She was subsequently discharged home on Aspirin and Lipitor. Total time spent on discharge, 32 mins Disposition: DC-01 TO HOME OR SELFCARE - Discharge Diagnoses (1) CAD (coronary artery disease) Status: Acute (2) Hyperlipidemia Status: Acute (3) Acute CVA (cerebrovascular accident) Status: Acute (4) Ataxic gait Status: Acute (5) Hypertensive urgency Status: Acute (6) Visual disturbance Status: Acute Core Measure Documentation - Palliative Care Palliative Care/ Comfort Measures: Not Applicable - Core Measures Any of the following diagnoses?: stroke - Stroke Discharge Requirements Statin for LDL = or >70 mg/dl on DC: Yes Anticoag for atrial fib/atrial flutter: Not Applicable Antithrombotic for ischemic stroke: Yes Exam - Constitutional Vitals: Temp Pulse Resp BP Pulse Ox 97.8 F 80 18 166/59 95 07/30/18 06:55 07/30/18 11:51 07/30/18 06:55 07/30/18 07:43 07/30/18 04:30 Plan Activity: advance as tolerated Diet: low fat, low cholesterol, low salt Additional Instructions: 1.Follow up with PCP in 1 week. 2.Follow up with Dr. Heard, Neurology in 1 week. Prescriptions: Aspirin EC [Aspirin Enteric Coated TAB] 81 mg PO QDAY #30 tablet. AtorvaSTATin [Lipitor] 20 mg PO QHS #30 tab
[2018-07-30] MEDS ORDERED: CATAPRES PO ONE (14:00)
--- NOTE | 2018-07-30 14:41 | Progress Note ---
Subjective Date of service: 07/30/18 Interval history: two small ischemic infarcts from small vessel disease.... she can go home on medical therapy all neuro finding have largely resolved this is not surprizing based on age and history Objective - Vital Sign Vital Signs - 12hr 07/30/18 07/30/18 07/30/18 04:00 04:30 04:41 Temperature 97.3 F L Pulse Rate 93 H 84 Respiratory 18 18 Rate Blood Pressure 185/69 Blood Pressure 185/69 [Right] O2 Sat by Pulse 95 Oximetry 07/30/18 07/30/18 07/30/18 05:41 06:55 07:43 Temperature 97.8 F Pulse Rate 91 H Respiratory 18 Rate Blood Pressure 185/69 166/59 Blood Pressure 166/59 [Right] O2 Sat by Pulse Oximetry 07/30/18 11:51 Temperature Pulse Rate 80 Respiratory Rate Blood Pressure Blood Pressure [Right] O2 Sat by Pulse Oximetry - Laboratory Findings CBC and BMP: 07/27/18 22:27 07/27/18 22:27 Abnormal Lab Findings: Abnormal Labs 07/27/18 07/27/18 07/27/18 20:53 20:53 22:27 MCHC 35 H [place] % (Auto) 9.0 H 10.3 H Creatinine 0.6 L Glucose 146 H POC Glucose 07/27/18 07/27/18 07/28/18 22:27 23:30 08:11 MCHC [place] % (Auto) Creatinine 0.6 L Glucose 141 H POC Glucose 128 H 127 H 07/28/18 07/29/18 07/29/18 12:46 08:15 11:54 MCHC [place] % (Auto) Creatinine Glucose POC Glucose 136 H 130 H 142 H 07/29/18 07/30/18 07/30/18 21:09 08:04 12:50 MCHC [place] % (Auto) Creatinine Glucose POC Glucose 132 H 155 H 168 H
== END 2018-07-30 19:00 | disposition home or self-care (01) | DRG 66 ==
LOC: ED 19:16 → 4A 07-28 00:20
PROVIDERS: ADMIT Internal Medicine; ATTEND Internal Medicine
DX: I63.9 Cerebral infarction, unspecified (principal); I16.0 Hypertensive urgency; H53.9 Unspecified visual disturbance; H49.01 Third [oculomotor] nerve palsy, right eye; I25.10 Atherosclerotic heart disease of native coronary artery without angina pectoris; I50.9 Heart failure, unspecified; I11.0 Hypertensive heart disease with heart failure; R29.701 NIHSS score 1; R26.0 Ataxic gait; E11.9 Type 2 diabetes mellitus without complications; I25.2 Old myocardial infarction; Z95.5 Presence of coronary angioplasty implant and graft; Z79.84 Long term (current) use of oral hypoglycemic drugs
CPT/HCPCS: 36415; 70450; 70496; 70498; 70551; 71045; 80048; 80053; 80061; 80320; 81001; 82607; 82962; 84484; 85025; 85610; 85652; 85730; 93005; 93010; 93306; 93880; 96374; G0378; G0480; J0360; J1644; Q9967

== ENCOUNTER 2018-08-21 11:01 | Inpatient (IN) | payer MEDICARE ==
[2018-08-21] MEDS ORDERED: ASPIRIN PO ONE (11:41)
--- NOTE | 2018-08-21 11:46 | Emergency Department Report ---
ED Chest Pain HPI - General Chief Complaint: Chest Pain Stated Complaint: CHEST PAIN/ABDOMINAL PAIN Time Seen by Provider: 08/21/18 11:35 Source: EMS Mode of arrival: Stretcher Limitations: No Limitations - History of Present Illness Initial Comments: 88-year-old female presents to ED after being referred by PCP. Patient states she began having chest pain over the weekend, 4 days ago. States pain was left- sided radiating into her back and left arm. Denies shortness of breath, nausea, vomiting, diaphoresis. Patient states she woke up this morning and chest pain- free. However, was seen at her PCPs office and reported her chest pain. EKG was done and patient was sent to the ER. Patient has history of CAD, reports 4 stents placed several years ago. Denies tobacco use. MD Complaint: chest pain -: days(s) (4) Onset: during rest Pain Location: left chest Pain Radiation: LUE Severity: moderate Severity scale (0 -10): 2 Quality: tightness Consistency: now resolved Improves With: nothing Worsens With: nothing re: denies: nausea, vomting, diaphoresis, dyspnea - Related Data Home Medications Medication Instructions Recorded Confirmed Last Taken Furosemide [Lasix TAB] 40 mg PO QDAY 07/29/18 08/21/18 Unknown Linagliptin [Tradjenta] 5 mg PO QDAY 07/29/18 08/21/18 Unknown Metoprolol Succinate [Toprol Xl] 25 mg PO DAILY 07/29/18 08/21/18 Unknown Olmesartan (Nf) [Benicar] 20 mg PO QDAY 07/29/18 08/21/18 Unknown Plavix 75 mg PO DAILY 07/29/18 08/21/18 Unknown cloNIDine [Catapres] 0.1 mg PO BID 07/29/18 08/21/18 Unknown glipiZIDE [Glipizide] 5 mg PO BIDAC 07/29/18 08/21/18 Unknown hydrALAZINE [Apresoline TAB] 25 mg PO BID 07/29/18 08/21/18 Unknown metFORMIN [Glucophage] 500 mg PO BID 07/29/18 08/21/18 Unknown Previous Rx's Medication Instructions Recorded Last Taken Type Aspirin EC [Aspirin Enteric Coated 81 mg PO QDAY #30 tablet. 07/30/18 Unknown Rx TAB] AtorvaSTATin [Lipitor] 20 mg PO QHS #30 tab 07/30/18 Unknown Rx Allergies Allergy/AdvReac Type Severity Reaction Status Date / Time No Known Allergies Allergy Verified 07/28/18 01:51 Heart Score - HEART Score History: Moderately suspicious EKG: Non-specific Age: > 65 Risk factors: > 3 risk factors or hx of atherosclerotic disease Troponin: > 3x normal limit HEART Score: 8 ED Review of Systems ROS: Stated complaint: CHEST PAIN/ABDOMINAL PAIN Other details as noted in HPI Comment: All other systems reviewed and negative Respiratory: denies: shortness of breath Cardiovascular: chest pain Gastrointestinal: denies: nausea, vomiting ED Past Medical Hx - Past Medical History Hx Hypertension: Yes Hx CVA: No Hx Heart Attack/AMI: Yes Hx Congestive Heart Failure: Yes Hx Diabetes: Yes Hx Arthritis: Yes - Surgical History Hx Coronary Stent: Yes (4 stents) Additional Surgical History: Herniated Disc - Social History Smoking Status: Never Smoker Substance Use Type: None - Medications Home Medications: Home Medications Medication Instructions Recorded Confirmed Last Taken Type Furosemide [Lasix TAB] 40 mg PO QDAY 07/29/18 08/21/18 Unknown History Linagliptin [Tradjenta] 5 mg PO QDAY 07/29/18 08/21/18 Unknown History Metoprolol Succinate [Toprol Xl] 25 mg PO DAILY 07/29/18 08/21/18 Unknown History Olmesartan (Nf) [Benicar] 20 mg PO QDAY 07/29/18 08/21/18 Unknown History Plavix 75 mg PO DAILY 07/29/18 08/21/18 Unknown History cloNIDine [Catapres] 0.1 mg PO BID 07/29/18 08/21/18 Unknown History glipiZIDE [Glipizide] 5 mg PO BIDAC 07/29/18 08/21/18 Unknown History hydrALAZINE [Apresoline TAB] 25 mg PO BID 07/29/18 08/21/18 Unknown History metFORMIN [Glucophage] 500 mg PO BID 07/29/18 08/21/18 Unknown History Aspirin EC [Aspirin Enteric Coated 81 mg PO QDAY #30 tablet. 07/30/18 08/21/18 Unknown Rx TAB] AtorvaSTATin [Lipitor] 20 mg PO QHS #30 tab 07/30/18 08/21/18 Unknown Rx ED Physical Exam - General Limitations: No Limitations General appearance: alert, in no apparent distress - Head Head exam: Present: atraumatic, normocephalic - Eye Eye exam: Present: normal appearance - ENT ENT exam: Present: mucous membranes moist - Neck Neck exam: Present: normal inspection - Respiratory Respiratory exam: Present: normal lung sounds bilaterally. Absent: respiratory distress - Cardiovascular Cardiovascular Exam: Present: regular rate, normal rhythm - GI/Abdominal GI/Abdominal exam: Present: soft. Absent: distended, tenderness - Extremities Exam Extremities exam: Present: normal inspection - Neurological Exam Neurological exam: Present: alert, oriented X3 - Psychiatric Psychiatric exam: Present: normal affect, normal mood - Skin Skin exam: Present: warm, dry, intact, normal color ED Course Vital Signs 08/21/18 08/21/18 08/21/18 11:03 11:10 11:15 Temperature 98.3 F Pulse Rate 74 71 Respiratory 18 19 Rate Blood Pressure 127/56 Blood Pressure 155/62 [Left] O2 Sat by Pulse 82 L 96 93 Oximetry 08/21/18 08/21/18 08/21/18 11:30 11:35 11:45 Temperature Pulse Rate 70 65 Respiratory 15 18 15 Rate Blood Pressure 116/61 118/55 Blood Pressure [Left] O2 Sat by Pulse 94 96 94 Oximetry 08/21/18 08/21/18 08/21/18 12:00 12:15 12:30 Temperature Pulse Rate 64 66 61 Respiratory 18 17 15 Rate Blood Pressure 121/49 120/60 120/60 Blood Pressure [Left] O2 Sat by Pulse 94 94 95 Oximetry 08/21/18 08/21/18 08/21/18 12:45 13:05 13:15 Temperature Pulse Rate 61 61 Respiratory 13 18 Rate Blood Pressure 134/50 130/45 139/59 Blood Pressure [Left] O2 Sat by Pulse 92 97 96 Oximetry 08/21/18 08/21/18 08/21/18 13:30 13:45 14:00 Temperature Pulse Rate 63 61 61 Respiratory 16 16 12 Rate Blood Pressure 138/46 134/50 121/50 Blood Pressure [Left] O2 Sat by Pulse 96 96 95 Oximetry 08/21/18 08/21/18 08/21/18 14:15 14:30 14:45 Temperature Pulse Rate 62 62 62 Respiratory 15 16 17 Rate Blood Pressure 129/56 119/55 134/59 Blood Pressure [Left] O2 Sat by Pulse 95 93 94 Oximetry 08/21/18 08/21/18 08/21/18 15:00 15:15 15:30 Temperature Pulse Rate 60 60 69 Respiratory 19 20 13 Rate Blood Pressure 128/56 127/55 144/57 Blood Pressure [Left] O2 Sat by Pulse 94 93 95 Oximetry 08/21/18 08/21/18 08/21/18 15:45 16:01 16:15 Temperature Pulse Rate 62 71 61 Respiratory 18 16 15 Rate Blood Pressure 131/54 144/57 118/51 Blood Pressure [Left] O2 Sat by Pulse 94 95 94 Oximetry - Reevaluation(s) Reevaluation #1: 08/21/18 12:33 EKG repeated. Remains the same. Pt remains chest pain free. Trop elevated at 0.134. Heparin drip ordered. - Consultations Consultation #1: 08/21/18 11:44 EKG appears abnormal, but no evidence of STEMI. Spoke w/ [facility] Iván mcnulty. Will come down and see pt. ED Medical Decision Making - Lab Data Result diagrams: 08/21/18 11:47 08/21/18 11:47 - EKG Data -: EKG Interpreted by Sd EKG shows normal: sinus rhythm, axis, intervals, QRS complexes Rate: normal - EKG Data When compared to previous EKG there are: changes noted Interpretation: other (T wave inversions diffusely) - Radiology Data Radiology results: report reviewed, image reviewed - Medical Decision Making 88-year-old with history of CAD with 4 stents presents to ED with abnormal EKG from the office. EKG is abnormal compared to previous EKG from last month. Patient has diffuse T-wave inversions, however no ST elevations or depressions noted. Patient's sensation is chest pain-free at this time, however states she did experience chest pain throughout the weekend as she saw her PCP today. Troponin elevated at 0.1. Heparin drip initiated. Patient seen and evaluated by cardiology PA. Spoke with hospitalist, Dr. Post, for admission. Requests bridge orders be placed. - Differential Diagnosis ACS Critical Care Time: Yes Critical care time in (mins) excluding proc time.: 40 Critical care attestation.: If time is entered above; I have spent that time in minutes in the direct care of this critically ill patient, excluding procedure time. Critical Care Time: 40 minutes ED Disposition Clinical Impression: NSTEMI (non-ST elevated myocardial infarction) Disposition: DC-09 OP ADMIT IP TO THIS HOSP Is pt being admited?: Yes Condition: Stable Time of Disposition: 13:42
[2018-08-21 12:01] LABS: Basophils # (Auto) 0.1 K/mm3 (0.0-0.1); Basophils % (Auto) 0.7 % (0.0-1.8); Eosinophils # (Auto) 0.1 K/mm3 (0.0-0.4); Eosinophils % (Auto) 1.2 % (0.0-4.3); Hematocrit 37.8 % (30.3-42.9); Hemoglobin 12.9 gm/dl (10.1-14.3); Lymphocytes # (Auto) 1.9 K/mm3 (1.2-5.4); Lymphocytes % (Auto) 23.4 % (13.4-35.0); Mean Corpuscular HGB Conc 34 % (30-34); Mean Corpuscular Volume 87 fl (79-97); Monocytes # (Auto) 0.7 K/mm3 (0.0-0.8); Platelet Count 149 K/mm3 (140-440); Red Blood Count 4.35 M/mm3 (3.65-5.03); Red Cell Distribution Width 13.7 % (13.2-15.2)
[2018-08-21 12:10] LABS: INR 0.96 (0.87-1.13)
[2018-08-21 12:11] LABS: Partial Thromboplastin Time 25.8 Sec. (24.2-36.6)
[2018-08-21 12:21] LABS: BUN/Creatinine Ratio 22; Blood Urea Nitrogen 13 mg/dL (7-17); Calcium 8.8 mg/dL (8.4-10.2); Hemolysis Index 5
[2018-08-21] MEDS ORDERED: HEPARIN 10,000 UNITS/10 ML IV ONE (12:27)
--- NOTE | 2018-08-21 12:48 | XRay Report ---
AP CHEST: HISTORY: chest pain AP view of the chest demonstrates a normal mediastinal and cardiac contour with clear lungs and normal bony and soft tissue structures. No significant change since 07/27/18. IMPRESSION: No acute cardiopulmonary process.
[2018-08-21] MEDS ORDERED: HEPARIN/ 0.45% NACL-25,000 UNIT/500 ML 25,000 UNIT/500 ML BAG IV SCH (13:00)
[2018-08-21 13:21] LABS: Chol/HDL Ratio 2.46 %; HDL Cholesterol 45 mg/dL (40-59); LDL Cholesterol,Direct 64 mg/dL (50-130)
--- NOTE | 2018-08-21 13:47 | Consultation ---
History of Present Illness Consult date: 08/21/18 Consult reason: chest pain, other (Abnormal ECG) History of present illness: Patient is an 88 year old woman who was discharged from this hospital 3 weeks ago following an acute CVA and is on plavix and aspirin therapy. She returns to the emergency department from her pcp office with reports of chest pain, intermittent for several days. She denies unusual shortness of breath and palpitations. Her ECG shows sinus rhythm with diffuse Twave inversions and initial troponins is elevated at 0.134. Cardiac consultation requested. Patient has a history of coronary artery disease with prior RCA stents. An echocardiogram done 3 weeks ago revealed mild to moderate aortic regurgitation with a normal left ventricular systolic function, ejection fraction 60-65%. In 2017, she underwent a persantine thallium stress that reported as normal. Medications and Allergies Allergies Allergy/AdvReac Type Severity Reaction Status Date / Time No Known Allergies Allergy Verified 07/28/18 01:51 Home Medications Medication Instructions Recorded Confirmed Last Taken Type Furosemide [Lasix TAB] 40 mg PO QDAY 07/29/18 08/21/18 Unknown History Linagliptin [Tradjenta] 5 mg PO QDAY 07/29/18 08/21/18 Unknown History Metoprolol Succinate [Toprol Xl] 25 mg PO DAILY 07/29/18 08/21/18 Unknown History Olmesartan (Nf) [Benicar] 20 mg PO QDAY 07/29/18 08/21/18 Unknown History Plavix 75 mg PO DAILY 07/29/18 08/21/18 Unknown History cloNIDine [Catapres] 0.1 mg PO BID 07/29/18 08/21/18 Unknown History glipiZIDE [Glipizide] 5 mg PO BIDAC 07/29/18 08/21/18 Unknown History hydrALAZINE [Apresoline TAB] 25 mg PO BID 07/29/18 08/21/18 Unknown History metFORMIN [Glucophage] 500 mg PO BID 07/29/18 08/21/18 Unknown History Aspirin EC [Aspirin Enteric Coated 81 mg PO QDAY #30 tablet.dr 07/30/18 08/21/18 Unknown Rx TAB] AtorvaSTATin [Lipitor] 20 mg PO QHS #30 tab 07/30/18 08/21/18 Unknown Rx Active Meds: Active Medications Heparin Sodium/Sodium Chloride (Heparin/ 0.45% Nacl-25,000 Unit/500 Ml) 25,000 unit in 500 mls @ 20 mls/hr IV TITRATE MARLEN; Protocol Last Admin: 08/21/18 13:34 Dose: 1,000 units/hr, 20 mls/hr Documented by: Physical Examination Vital Signs Pulse Ox 82 L 08/21/18 11:03 General appearance: no acute distress HEENT: Positive: PERRL Neck: Positive: trachea midline Cardiac: Positive: Reg Rate and Rhythm Lungs: Positive: Decreased Breath Sounds Neuro: Positive: Grossly Intact Extremities: Absent: edema Results 08/21/18 11:47 08/21/18 11:47 Coagulation 08/21/18 Range/Units 11:47 PT 13.4 (12.2-14.9) Sec. INR 0.96 (0.87-1.13) APTT 25.8 (24.2-36.6) Sec. Lipids 08/21/18 Range/Units 11:47 Triglycerides 88 (2-149) mg/dL Cholesterol 111 (50-199) mg/dL HDL Cholesterol 45 (40-59) mg/dL Cholesterol/HDL Ratio 2.46 % CBC 08/21/18 Range/Units 11:47 WBC 8.2 (4.5-11.0) K/mm3 RBC 4.35 (3.65-5.03) M/mm3 Hgb 12.9 (10.1-14.3) gm/dl Hct 37.8 (30.3-42.9) % Plt Count 149 (140-440) K/mm3 Lymph # 1.9 (1.2-5.4) K/mm3 Teller # 0.7 (0.0-0.8) K/mm3 Eos # 0.1 (0.0-0.4) K/mm3 Baso # 0.1 (0.0-0.1) K/mm3 Comprehensive Metabolic Panel 08/21/18 Range/Units 11:47 Sodium 142 (137-145) mmol/L Potassium 3.6 (3.6-5.0) mmol/L Chloride 102.8 (98-107) mmol/L Carbon Dioxide 26 (22-30) mmol/L BUN 13 (7-17) mg/dL Creatinine 0.6 L (0.7-1.2) mg/dL Glucose 136 H (65-100) mg/dL Calcium 8.8 (8.4-10.2) mg/dL Assessment and Plan NSTEMI Abnormal ECG Recent CVA -on plavix and aspirin Hypertension History of CAD An echocardiogram done 3 weeks ago revealed mild to moderate aortic regurgitation with a normal left ventricular systolic function, ejection fraction 60-65%. In 2017, she underwent a persantine thallium stress that reported as normal.
[2018-08-21] MEDS ORDERED: PLAVIX PO ONE (18:14)
[2018-08-21] MEDS: HALFPRIN EC PO SCH (18:58)
[2018-08-21] MEDS: COZAAR PO SCH (18:58)
[2018-08-21] MEDS ORDERED: NACL 0.9% 500 ML 500 ML IV SCH (19:00)
[2018-08-21] MEDS ORDERED: LOPRESSOR PO SCH (22:00)
--- NOTE | 2018-08-21 22:15 | History and Physical Report ---
History of Present Illness Date of examination: 08/21/18 Date of admission: 08/21/18 14:24 Chief complaint: Chest pain for 4 days History of present illness: 88 year old female with recent CVA and history of HTN and T2DM began having chest pain over the weekend, 4 days ago. States pain was left-sided radiating into her back and left arm. Denies shortness of breath, nausea, vomiting, diaphoresis. Patient states she woke up this morning and chest pain-free. Wali mi, was seen at her PCPs office and reported her chest pain. EKG was done and patient was sent to the ER. Patient has history of CAD, reports 4 stents placed several years ago. Denies tobacco use.Chest pain exertional also.Exacerbated by exertion.Relieved by rest. Past Medical History HTN CVA Heart Attack/AMI: Yes Congestive Heart Failure: Yes Diabetes: Yes Arthritis: Yes Surgical History Hx Coronary Stent: Yes (4 stents) Additional Surgical History: Herniated Disc Social History Smoking Status: Never Smoker Substance Use Type: None Family History Htn Review of Systems ROS: Stated complaint: CHEST PAIN/ABDOMINAL PAIN Other details as noted in HPI Comment: All other systems reviewed and negative Respiratory: denies: shortness of breath Cardiovascular: chest pain Gastrointestinal: denies: nausea, vomiting Medications and Allergies Allergies Allergy/AdvReac Type Severity Reaction Status Date / Time No Known Allergies Allergy Verified 07/28/18 01:51 Home Medications Medication Instructions Recorded Confirmed Last Taken Type Furosemide [Lasix TAB] 40 mg PO QDAY 07/29/18 08/21/18 Unknown History Linagliptin [Tradjenta] 5 mg PO QDAY 07/29/18 08/21/18 Unknown History Metoprolol Succinate [Toprol Xl] 25 mg PO DAILY 07/29/18 08/21/18 Unknown History Olmesartan (Nf) [Benicar] 20 mg PO QDAY 07/29/18 08/21/18 Unknown History Plavix 75 mg PO DAILY 07/29/18 08/21/18 Unknown History cloNIDine [Catapres] 0.1 mg PO BID 07/29/18 08/21/18 Unknown History glipiZIDE [Glipizide] 5 mg PO BIDAC 07/29/18 08/21/18 Unknown History hydrALAZINE [Apresoline TAB] 25 mg PO BID 07/29/18 08/21/18 Unknown History metFORMIN [Glucophage] 500 mg PO BID 07/29/18 08/21/18 Unknown History Aspirin EC [Aspirin Enteric Coated 81 mg PO QDAY #30 tablet. 07/30/18 08/21/18 Unknown Rx TAB] AtorvaSTATin [Lipitor] 20 mg PO QHS #30 tab 07/30/18 08/21/18 Unknown Rx Active Meds: Active Medications Aspirin (Halfprin Ec) 81 mg PO QDAY [facility] Last Admin: 08/21/18 18:58 Dose: 81 mg Documented by: Atorvastatin Calcium (Lipitor) 40 mg PO QHS [facility] Last Admin: 08/21/18 21:13 Dose: 40 mg Documented by: Clopidogrel Bisulfate (Plavix) 75 mg PO QDAY [facility] Heparin Sodium/Sodium Chloride (Heparin/ 0.45% Nacl-25,000 Unit/500 Ml) 25,000 unit in 500 mls @ 20 mls/hr IV TITRATE [facility]; Protocol Last Titration: 08/21/18 21:14 Dose: 950 units/hr, 19 mls/hr Documented by: Sodium Chloride (Nacl 0.9% 500 Ml) 500 mls @ 50 mls/hr IV DIRECT MARLEN Stop: 08/22/18 04:59 Losartan Potassium (Cozaar) 50 mg PO QDAY [facility] Last Admin: 08/21/18 18:58 Dose: 50 mg Documented by: Metoprolol Tartrate (Lopressor) 25 mg PO BID [facility] Last Admin: 08/21/18 21:13 Dose: 25 mg Documented by: Nitroglycerin (Nitro-Bid 2%) 1 inch TP QIDNTG [facility]; Protocol Exam - Constitutional Vitals: Temp Pulse Resp BP Pulse Ox 97.8 F 68 19 149/65 96 08/21/18 18:40 08/21/18 21:13 08/21/18 18:40 08/21/18 21:13 08/21/18 18:40 General appearance: Present: no acute distress, well-nourished - EENT Eyes: Present: PERRL ENT: hearing intact, clear oral mucosa - Neck Neck: Present: supple, normal ROM - Respiratory Respiratory effort: normal Respiratory: bilateral: CTA - Cardiovascular Heart rate: 78 Rhythm: regular Heart Sounds: Present: S1 & S2. Absent: rub, click - Extremities Extremities: no ischemia, pulses intact, pulses symmetrical, No edema Peripheral Pulses: within normal limits - Abdominal General gastrointestinal: Present: soft, non-tender, non-distended, normal bowel sounds Female genitourinary: Present: normal - Rectal Rectal Exam: deferred - Integumentary Integumentary: Present: clear, warm, dry - Musculoskeletal Musculoskeletal: gait normal, strength equal bilaterally - Psychiatric Psychiatric: appropriate mood/affect, intact judgment & insight - Neurologic Neurologic: CNII-XII intact, moves all extremities - Allied Health Allied health notes reviewed: nursing, case management Results - Labs CBC & Chem 7: 08/22/18 03:07 08/22/18 03:07 Labs: Laboratory Last Values WBC 8.2 K/mm3 (4.5-11.0) 08/21/18 11:47 RBC 4.35 M/mm3 (3.65-5.03) 08/21/18 11:47 Hgb 12.9 gm/dl (10.1-14.3) 08/21/18 11:47 Hct 37.8 % (30.3-42.9) 08/21/18 11:47 MCV 87 fl (79-97) 08/21/18 11:47 MCH 30 pg (28-32) 08/21/18 11:47 MCHC 34 % (30-34) 08/21/18 11:47 RDW 13.7 % (13.2-15.2) 08/21/18 11:47 Plt Count 149 K/mm3 (140-440) 08/21/18 11:47 Lymph % (Auto) 23.4 % (13.4-35.0) 08/21/18 11:47 [place] % (Auto) 9.0 % (0.0-7.3) H 08/21/18 11:47 Eos % (Auto) 1.2 % (0.0-4.3) 08/21/18 11:47 Baso % (Auto) 0.7 % (0.0-1.8) 08/21/18 11:47 Lymph # 1.9 K/mm3 (1.2-5.4) 08/21/18 11:47 [place] # 0.7 K/mm3 (0.0-0.8) 08/21/18 11:47 Eos # 0.1 K/mm3 (0.0-0.4) 08/21/18 11:47 Baso # 0.1 K/mm3 (0.0-0.1) 08/21/18 11:47 Seg Neutrophils % 65.7 % (40.0-70.0) 08/21/18 11:47 Seg Neutrophils # 5.4 K/mm3 (1.8-7.7) 08/21/18 11:47 PT 13.4 Sec. (12.2-14.9) 08/21/18 11:47 INR 0.96 (0.87-1.13) 08/21/18 11:47 APTT 25.8 Sec. (24.2-36.6) 08/21/18 11:47 Heparin Anti-Xa Level 0.88 U.I./ml (0.3-0.7) H 08/21/18 19:36 Sodium 142 mmol/L (137-145) 08/21/18 11:47 Potassium 3.6 mmol/L (3.6-5.0) 08/21/18 11:47 Chloride 102.8 mmol/L (98-107) 08/21/18 11:47 Carbon Dioxide 26 mmol/L (22-30) 08/21/18 11:47 Anion Gap 17 mmol/L 08/21/18 11:47 BUN 13 mg/dL (7-17) 08/21/18 11:47 Creatinine 0.6 mg/dL (0.7-1.2) L 08/21/18 11:47 Estimated GFR > 60 ml/min 08/21/18 11:47 BUN/Creatinine Ratio 22 % 08/21/18 11:47 Glucose 136 mg/dL (65-100) H 08/21/18 11:47 Calcium 8.8 mg/dL (8.4-10.2) 08/21/18 11:47 Troponin T 0.132 ng/mL (0.00-0.029) H* 08/21/18 14:35 Triglycerides 88 mg/dL (2-149) 08/21/18 11:47 Cholesterol 111 mg/dL (50-199) 08/21/18 11:47 LDL Cholesterol Direct 64 mg/dL (50-130) 08/21/18 11:47 HDL Cholesterol 45 mg/dL (40-59) 08/21/18 11:47 Cholesterol/HDL Ratio 2.46 % 08/21/18 11:47 Short CBC 08/21/18 08/22/18 Range/Units 11:47 03:07 WBC 8.2 7.6 (4.5-11.0) K/mm3 Hgb 12.9 12.4 (10.1-14.3) gm/dl Hct 37.8 36.5 (30.3-42.9) % Plt Count 149 128 L (140-440) K/mm3 BMP 08/21/18 08/22/18 11:47 03:07 Sodium 142 142 Potassium 3.6 3.9 Chloride 102.8 104.5 Carbon Dioxide 26 26 BUN 13 13 Creatinine 0.6 L 0.5 L Glucose 136 H 157 H Calcium 8.8 8.8 Cardiac Enzymes 08/21/18 08/21/18 08/21/18 Range/Units 11:47 14:35 22:57 Troponin T 0.134 H* 0.132 H* 0.147 H* (0.00-0.029) ng/mL 08/22/18 Range/Units 03:07 Troponin T 0.113 H* D (0.00-0.029) ng/mL Liver Function 08/22/18 Range/Units 03:07 Total Bilirubin 0.50 (0.1-1.2) mg/dL AST 22 (5-40) units/L ALT 12 (7-56) units/L Alkaline Phosphatase 57 (35-129) units/L Albumin 3.2 L (3.9-5) g/dL - Imaging and Cardiology EKG: report reviewed (76/min T ewave inversions in V3 to V6) Chest x-ray: report reviewed (NAF) Assessment and Plan Advance Directives: Yes (Full code) VTE prophylaxis?: Chemical Plan of care discussed with patient/family: Yes - Patient Problems (1) NSTEMI (non-ST elevated myocardial infarction) Current Visit: Yes Status: Acute Plan to address problem: Patient will be managed for acute coronary syndrome with oral antiplatelets, heparin, topical nitrates, beta blockers and statin. Early invasive management, cardiac catheterization will be scheduled for tomorrow morning. Cardiology consult apppreciated (2) Hyperlipidemia Current Visit: No Status: Chronic Qualifiers: Hyperlipidemia type: mixed hyperlipidemia Qualified Code(s): E78.2 - Mixed hyperlipidemia Plan to address problem: COnt statins (3) HTN (hypertension) Current Visit: Yes Status: Chronic Qualifiers: Hypertension type: essential hypertension Qualified Code(s): I10 - Essential (primary) hypertension Plan to address problem: COnt antihypertensives (4) T2DM (type 2 diabetes mellitus) Current Visit: Yes Status: Chronic Qualifiers: Diabetes mellitus residential insulin use: without residential use Plan to address problem: COnt oral hypoglycemics and Coverage Check A1c (5) CHF (congestive heart failure) Current Visit: Yes Status: Chronic Qualifiers: Heart failure type: combined systolic and diastolic Plan to address problem: COnt Lasix (6) DVT prophylaxis Current Visit: Yes Status: Acute Plan to address problem: On Heparin and GI prophylaxis
[2018-08-21] MEDS ORDERED: ZOFRAN IV PRN (22:17)
[2018-08-21] MEDS ORDERED: TYLENOL PO PRN (22:17)
[2018-08-21] MEDS ORDERED: SODIUM CHLORIDE FLUSH SYRINGE 10 ML IV PRN (22:17)
[2018-08-21] MEDS ORDERED: DILAUDID IV PRN (22:17)
[2018-08-21] MEDS ORDERED: PERCOCET 5/325 PO PRN (22:17)
[2018-08-21] MEDS: SODIUM CHLORIDE FLUSH SYRINGE 10 ML IV SCH (23:13)
[2018-08-21] MEDS: CATAPRES PO SCH (23:13)
[2018-08-22 03:32] LABS: Basophils % (Auto) 0.5 % (0.0-1.8); Eosinophils # (Auto) 0.2 K/mm3 (0.0-0.4); Eosinophils % (Auto) 2.8 % (0.0-4.3); Hematocrit 36.5 % (30.3-42.9); Hemoglobin 12.4 gm/dl (10.1-14.3); Lymphocytes # (Auto) 1.9 K/mm3 (1.2-5.4); Lymphocytes % (Auto) 24.9 % (13.4-35.0); Mean Corpuscular HGB Conc 34 % (30-34); Mean Corpuscular Volume 88 fl (79-97); Monocytes # (Auto) 0.7 K/mm3 (0.0-0.8); Monocytes % (Auto) 8.7 % (0.0-7.3); Platelet Count 128 K/mm3 (140-440); Red Blood Count 4.16 M/mm3 (3.65-5.03); Red Cell Distribution Width 13.7 % (13.2-15.2)
[2018-08-22 04:00] LABS: Alanine Aminotransferase 12 units/L (7-56); Albumin 3.2 g/dL (3.9-5); BUN/Creatinine Ratio 26; Blood Urea Nitrogen 13 mg/dL (7-17); Calcium 8.8 mg/dL (8.4-10.2); Hemolysis Index 12
[2018-08-22] MEDS: NITRO-BID 2% TP SCH ×4 (06:48→18:08)
[2018-08-22] MEDS: HumaLOG SUB-Q SCH ×4 (07:50→22:16)
[2018-08-22] MEDS ORDERED: GLUCOPHAGE PO SCH (08:00)
[2018-08-22] MEDS: GLUCOTROL PO SCH ×2 (08:09→18:35)
[2018-08-22] MEDS: CATAPRES PO SCH ×2 (08:19→18:35)
[2018-08-22] MEDS ORDERED: HALFPRIN EC PO ONE (08:51)
[2018-08-22] MEDS ORDERED: PLAVIX ONE (08:51)
[2018-08-22] MEDS: PLAVIX PO SCH ×2 (08:55→11:13)
[2018-08-22] MEDS: HALFPRIN EC PO SCH ×2 (08:55→11:13)
[2018-08-22] MEDS ORDERED: HEPARIN/NS 5000 UNIT/500ML(CATH LAB) 1,000 ML IR ONE (09:16)
[2018-08-22] MEDS ORDERED: HEPARIN 10,000 UNITS/10 ML ONE (09:16)
[2018-08-22] MEDS ORDERED: VERSED ONE (09:16)
[2018-08-22] MEDS ORDERED: CALAN ONE (09:17)
[2018-08-22] MEDS ORDERED: XYLOCAINE 2% INFILTRATI ONE (09:17)
[2018-08-22] MEDS ORDERED: NITROGLYCERIN SYRINGE 3 ML ONE (09:17)
[2018-08-22] MEDS ORDERED: SUBLIMAZE ONE (09:17)
[2018-08-22] MEDS ORDERED: NACL 0.9% 500 ML 500 ML ONE (09:28)
[2018-08-22] MEDS ORDERED: NON-FORMULARY (Plavix 75 MG) PO SCH (10:00)
[2018-08-22] MEDS ORDERED: NON-FORMULARY (Olmesartan (Nf) 20 MG) PO SCH (10:00)
[2018-08-22] MEDS ORDERED: HALFPRIN EC PO SCH (10:00)
[2018-08-22] MEDS: APRESOLINE PO SCH ×2 (11:09→22:16)
[2018-08-22] MEDS: COZAAR PO SCH (11:09)
[2018-08-22] MEDS: PEPCID PO SCH ×2 (11:09→22:16)
[2018-08-22] MEDS: LASIX PO SCH (11:10)
[2018-08-22] MEDS: TRADJENTA PO SCH (11:10)
[2018-08-22] MEDS: TOPROL XL PO SCH (11:10)
[2018-08-22] MEDS: SODIUM CHLORIDE FLUSH SYRINGE 10 ML IV SCH ×2 (11:13→22:16)
--- NOTE | 2018-08-22 11:29 | Cardiac Catherization Report ---
LEFT HEART CATHETERIZATION INDICATION FOR THE PROCEDURE: Non-ST elevation myocardial infarction. ORDERING PHYSICIAN: Red Glover MD PROCEDURE PERFORMED: 1. Selective left and right coronary angiography. 2. Left ventriculography. DESCRIPTION OF PROCEDURE: After obtaining written consent, the patient was draped using sterile technique. A 2% lidocaine was injected into the right wrist. A 5-[place]yr[place]z vascular sheath was inserted into the right radial artery. A 5-[place] JL3.5 catheter was used to selectively engage the left coronary artery. A 5-[place] JR4 catheter was used to selectively engage the right coronary artery. A 5-[place] JR4 catheter was used to hand inject the left ventriculogram. No complications occurred during the procedure. Hemostasis was achieved at the end of procedure with manual pressure. SPECIMEN REMOVED: None. ESTIMATED BLOOD LOSS: Minimal. TOTAL SEDATION ADMINISTERED: Was 1 mg of IV Versed and 25 mcg of IV fentanyl. PHYSICIAN/PATIENT [id number] SEDATION START TIME: 9:44 a.m. PHYSICIAN/PATIENT [id number] SEDATION STOP TIME: 10:00 a.m. TOTAL SEDATION TIME: 16 minutes. FINDINGS: HEMODYNAMICS: Aortic pressure is 128/56. LV systolic pressure is 128 mmHg. LVEDP is 17 mmHg. There was no significant gradient noted across left ventricular outflow tract. CARDIAC STRUCTURES: The left ventricular cavity appears to be normal in size. Left ventricular ejection fraction is estimated at 40%. There is severe hypokinesis of the apex, apical anterior as well as the apical inferior wall. CORONARY ANATOMY: 1. This is a right dominant circulation. 2. There is evidence of borderline ~ 50% distal left main stenosis. 3. There is evidence of a tubular 60-70% stenosis involving the proximal and mid LAD. 4. There is evidence of a 60-70% tubular stenosis involving the mid circumflex artery. 5. There is evidence of a 30% ostial stenosis involving the right coronary artery. There is a patent stent noted in the proximal and mid right coronary artery. IMPRESSION: 1. Borderline ~ 50% distal left main stenosis. 2. A 60-70% mid circumflex tubular stenosis. 3. A 60-70% tubular proximal to mid left anterior descending stenosis. 4. Patent proximal and mid right coronary artery stent. 5. Left ventricular ejection fraction is estimated at 40% with hypokinesis of the apex, apical anterior as well as the apical inferior wall. RECOMMENDATIONS: We will review the coronary angiograms with Interventional Cardiology and decide on appropriate revascularization strategy JOB# [id number] L[facility]/BELLE ABDUL
--- NOTE | 2018-08-22 13:19 | Progress Note ---
Assessment and Plan NSTEMI cardiac cath today revealing ~ 50% distal left main stenosis; 70% tubular proximal to mid LAD stenosis; 70% tubular mid circumflex stenosis; patent proximal and mid RCA stents Ischemic cardiomyopathy LVEF 40% with hypokinesis of the apex, apical anterior and apical inferior aguilar Abnormal ECG Recent CVA - on plavix and aspirin Hypertension An echocardiogram done 3 weeks ago revealed mild to moderate aortic regurgitation with a normal left ventricular systolic function, ejection fraction 60-65%. In 2017, she underwent a persantine thallium stress that reported as normal. Recommendations: Resume IV heparin without bolus at 2 pm today Will review angiograms with Dr Glover and come out with a decision regarding optimal revascularization strategy Subjective Date of service: 08/22/18 Principal diagnosis: NSTEMI Interval history: Patient underwent a LHC this morning without complications Objective Vital Signs Temp Pulse Pulse Resp BP BP Pulse Ox 08/22/18 12:00 59 L 18 122/59 08/22/18 11:16 68 136/56 08/22/18 11:10 68 136/56 08/22/18 11:09 61 136/56 08/22/18 10:57 98.1 F 61 18 136/56 95 08/22/18 08:19 65 168/69 08/22/18 08:15 98.1 F 168/69 08/22/18 06:14 97.4 F L 60 20 147/65 92 08/21/18 23:13 63 162/70 08/21/18 23:11 97.7 F 63 18 162/70 94 08/21/18 21:20 64 20 96 08/21/18 21:13 68 149/65 08/21/18 20:46 97.3 F L 68 20 149/65 97 08/21/18 19:38 66 08/21/18 18:40 97.8 F 59 L 19 144/70 96 08/21/18 18:21 111/43 08/21/18 16:59 98.3 F 78 16 114/74 95 08/21/18 16:15 61 15 118/51 94 08/21/18 16:01 71 16 144/57 95 08/21/18 15:45 62 18 131/54 94 08/21/18 15:30 69 13 144/57 95 08/21/18 15:15 60 20 127/55 93 08/21/18 15:00 60 19 128/56 94 08/21/18 14:45 62 17 134/59 94 08/21/18 14:30 62 16 119/55 93 08/21/18 14:15 62 15 129/56 95 08/21/18 14:00 61 12 121/50 95 08/21/18 13:45 61 16 134/50 96 08/21/18 13:30 63 16 138/46 96 - Physical Examination HEENT: Positive: PERRL Neck: Positive: trachea midline Cardiac: Positive: Reg Rate and Rhythm Lungs: Positive: Normal Exam Neuro: Positive: Grossly Intact Extremities: Absent: edema - Labs and Meds Cardiac Enzymes 08/22/18 Range/Units 03:07 AST 22 (5-40) units/L Lipids 08/21/18 Range/Units 11:47 Triglycerides 88 (2-149) mg/dL Cholesterol 111 (50-199) mg/dL HDL Cholesterol 45 (40-59) mg/dL Cholesterol/HDL Ratio 2.46 % CBC 08/22/18 Range/Units 03:07 WBC 7.6 (4.5-11.0) K/mm3 RBC 4.16 (3.65-5.03) M/mm3 Hgb 12.4 (10.1-14.3) gm/dl Hct 36.5 (30.3-42.9) % Plt Count 128 L (140-440) K/mm3 Lymph # 1.9 (1.2-5.4) K/mm3 [place] # 0.7 (0.0-0.8) K/mm3 Eos # 0.2 (0.0-0.4) K/mm3 Baso # 0.0 (0.0-0.1) K/mm3 Comprehensive Metabolic Panel 08/22/18 Range/Units 03:07 Sodium 142 (137-145) mmol/L Potassium 3.9 (3.6-5.0) mmol/L Chloride 104.5 (98-107) mmol/L Carbon Dioxide 26 (22-30) mmol/L BUN 13 (7-17) mg/dL Creatinine 0.5 L (0.7-1.2) mg/dL Glucose 157 H (65-100) mg/dL Calcium 8.8 (8.4-10.2) mg/dL AST 22 (5-40) units/L ALT 12 (7-56) units/L Alkaline Phosphatase 57 (35-129) units/L Total Protein 5.3 L (6.3-8.2) g/dL Albumin 3.2 L (3.9-5) g/dL - Imaging and Cardiology EKG: report reviewed (76/min T ewave inversions in V3 to V6)
[2018-08-22] MEDS: HEPARIN/ 0.45% NACL-25,000 UNIT/500 ML 25,000 UNIT/500 ML BAG IV SCH ×2 (14:02→18:35)
[2018-08-22 14:49] LABS: Hematocrit 40.8 % (30.3-42.9); Hemoglobin 13.6 gm/dl (10.1-14.3)
--- NOTE | 2018-08-22 15:39 | Progress Note ---
Assessment and Plan Assessment and plan: NSTEMI cardiac cath today revealing ~ 50% distal left main stenosis; 70% tubular proximal to mid LAD stenosis; 70% tubular mid circumflex stenosis; patent proximal and mid RCA stents Ischemic cardiomyopathy LVEF 40% with hypokinesis of the apex, apical anterior and apical inferior aguilar Abnormal ECG Recent CVA - on plavix and aspirin Hypertension An echocardiogram done 3 weeks ago revealed mild to moderate aortic regurgitation with a normal left ventricular systolic function, ejection fract ion 60-65%. In 2017, she underwent a persantine thallium stress that reported as normal. Recommendations: Resume IV heparin without bolus at 2 pm today Diabetes mellitus - Continue oral hypoglycemics, sliding scale insulin, ADA diet, Accu-Chek Hypertension - Continue antihypertensives Disposition - Continue inpatient care History Interval history: Patient was seen and evaluated this morning, patient didn't have any complaints. Hospitalist Physical - Physical exam Narrative exam: Not in cardiopulmonary distress. The patient appeared well nourished and normally developed. Vital signs as documented. Head exam is unremarkable. No scleral icterus . Neck is without jugular venous distension, thyromegaly, or carotid bruits. Lungs are clear to auscultation. Cardiac exam reveals regular rate and Rhythm. First and second heart sounds normal. No murmurs, rubs or gallops. Abdominal exam reveals normal bowel sounds, no masses, no organomegaly and no aortic enlargement. Extremities are nonedematous and both femoral and pedal pulses are normal. SERVICE PARTS DRIVER: Alert and oriented 3. No focal weakness. - Constitutional Vitals: Temp Pulse Resp BP Pulse Ox 98.1 F 64 18 143/64 95 08/22/18 10:57 08/22/18 14:00 08/22/18 12:00 08/22/18 14:00 08/22/18 10:57 General appearance: Present: no acute distress, well-nourished Results - Labs CBC & Chem 7: 08/22/18 13:29 08/22/18 03:07 Labs: Laboratory Last Values WBC 7.6 K/mm3 (4.5-11.0) 08/22/18 03:07 RBC 4.16 M/mm3 (3.65-5.03) 08/22/18 03:07 Hgb 13.6 gm/dl (10.1-14.3) 08/22/18 13:29 Hct 40.8 % (30.3-42.9) 08/22/18 13:29 MCV 88 fl (79-97) 08/22/18 03:07 MCH 30 pg (28-32) 08/22/18 03:07 MCHC 34 % (30-34) 08/22/18 03:07 RDW 13.7 % (13.2-15.2) 08/22/18 03:07 Plt Count 146 K/mm3 (140-440) 08/22/18 13:29 Lymph % (Auto) 24.9 % (13.4-35.0) 08/22/18 03:07 [place] % (Auto) 8.7 % (0.0-7.3) H 08/22/18 03:07 Eos % (Auto) 2.8 % (0.0-4.3) 08/22/18 03:07 Baso % (Auto) 0.5 % (0.0-1.8) 08/22/18 03:07 Lymph # 1.9 K/mm3 (1.2-5.4) 08/22/18 03:07 [place] # 0.7 K/mm3 (0.0-0.8) 08/22/18 03:07 Eos # 0.2 K/mm3 (0.0-0.4) 08/22/18 03:07 Baso # 0.0 K/mm3 (0.0-0.1) 08/22/18 03:07 Seg Neutrophils % 63.1 % (40.0-70.0) 08/22/18 03:07 Seg Neutrophils # 4.8 K/mm3 (1.8-7.7) 08/22/18 03:07 PT 13.4 Sec. (12.2-14.9) 08/21/18 11:47 INR 0.96 (0.87-1.13) 08/21/18 11:47 APTT 25.8 Sec. (24.2-36.6) 08/21/18 11:47 Heparin Anti-Xa Level 0.68 U.I./ml (0.3-0.7) 08/22/18 03:07 Sodium 142 mmol/L (137-145) 08/22/18 03:07 Potassium 3.9 mmol/L (3.6-5.0) 08/22/18 03:07 Chloride 104.5 mmol/L (98-107) 08/22/18 03:07 Carbon Dioxide 26 mmol/L (22-30) 08/22/18 03:07 Anion Gap 15 mmol/L 08/22/18 03:07 BUN 13 mg/dL (7-17) 08/22/18 03:07 Creatinine 0.5 mg/dL (0.7-1.2) L 08/22/18 03:07 Estimated GFR > 60 ml/min 08/22/18 03:07 BUN/Creatinine Ratio 26 % 08/22/18 03:07 Glucose 157 mg/dL (65-100) H 08/22/18 03:07 POC Glucose 121 (70-105) H 08/22/18 15:34 Hemoglobin A1c 7.2 % (4-6) H 08/21/18 22:41 Calcium 8.8 mg/dL (8.4-10.2) 08/22/18 03:07 Total Bilirubin 0.50 mg/dL (0.1-1.2) 08/22/18 03:07 AST 22 units/L (5-40) 08/22/18 03:07 ALT 12 units/L (7-56) 08/22/18 03:07 Alkaline Phosphatase 57 units/L (35-129) 08/22/18 03:07 Troponin T 0.113 ng/mL (0.00-0.029) H* D 08/22/18 03:07 Total Protein 5.3 g/dL (6.3-8.2) L 08/22/18 03:07 Albumin 3.2 g/dL (3.9-5) L 08/22/18 03:07 Albumin/Globulin Ratio 1.5 % 08/22/18 03:07 Triglycerides 88 mg/dL (2-149) 08/21/18 11:47 Cholesterol 111 mg/dL (50-199) 08/21/18 11:47 LDL Cholesterol Direct 64 mg/dL (50-130) 08/21/18 11:47 HDL Cholesterol 45 mg/dL (40-59) 08/21/18 11:47 Cholesterol/HDL Ratio 2.46 % 08/21/18 11:47 Active Medications - Current Medications Current Medications: Generic Name Dose Route Start Last Admin Trade Name Freq PRN Reason Stop Dose Admin Acetaminophen 650 mg 08/21/18 22:17 Tylenol PO Q4H PRN Pain MILD(1-3)/Fever >100.5/GASCA Aspirin 81 mg 08/21/18 19:00 08/22/18 11:13 Halfprin Ec PO Not Given QDAY [facility] Atorvastatin Calcium 20 mg 08/22/18 22:00 Lipitor PO QHS [facility] Clonidine HCl 0.1 mg 08/21/18 23:00 08/22/18 08:19 Catapres PO 0.1 mg BID@0800,1700 MAR[facility] Administration Clopidogrel Bisulfate 75 mg 08/22/18 10:00 08/22/18 11:13 Plavix PO Not Given QDAY [facility] Famotidine 20 mg 08/22/18 10:00 08/22/18 11:09 Pepcid PO 20 mg BID [facility] Administration Furosemide 40 mg 08/22/18 10:00 08/22/18 11:10 Lasix PO 40 mg QDAY [facility] Administration Glipizide 5 mg 08/22/18 08:00 08/22/18 08:09 Glucotrol PO Not Given BIDDIAB [facility] Hydralazine HCl 25 mg 08/22/18 10:00 08/22/18 11:09 Apresoline PO 25 mg BID [facility] Administration Hydromorphone HCl 0.5 mg 08/21/18 22:17 Dilaudid IV Q3H PRN Pain , Severe (7-10) Heparin Sodium/Sodium Chloride 25,000 unit in 500 mls @ 20 mls/hr 08/22/18 14:30 08/22/18 14:02 Heparin/ 0.45% Nacl-25,000 Unit/500 Ml IV 1,000 units/hr TITRATE MARLEN 20 mls/hr Administration Protocol 1,000 UNITS/HR Insulin Human Lispro 0 unit 08/22/18 07:30 08/22/18 12:38 Humalog SUB-Q Not Given ACHS [facility] Protocol Linagliptin 5 mg 08/22/18 10:00 08/22/18 11:10 Tradjenta PO 5 mg QDAY [facility] Administration Losartan Potassium 50 mg 08/21/18 19:00 08/22/18 11:09 Cozaar PO 50 mg QDAY [facility] Administration Metoprolol Succinate 25 mg 08/22/18 10:00 08/22/18 11:10 Toprol Xl PO 25 mg DAILY [facility] Administration Nitroglycerin 1 inch 08/22/18 06:00 08/22/18 14:00 Nitro-Bid 2% TP Not Given QIDNTG [facility] Protocol Ondansetron HCl 4 mg 08/21/18 22:17 Zofran IV Q8H PRN Nausea And Vomiting Oxycodone/Acetaminophen 1 tab 08/21/18 22:17 Percocet 5/325 PO Q6H PRN Pain, Moderate (4-6) Sodium Chloride 10 ml 08/21/18 22:17 Sodium Chloride Flush Syringe 10 Ml IV PRN PRN LINE FLUSH Sodium Chloride 10 ml 08/21/18 23:00 08/22/18 11:13 Sodium Chloride Flush Syringe 10 Ml IV 10 ml BID [facility]LEN Administration
[2018-08-22 16:37] LABS: INR 1.01 (0.87-1.13)
[2018-08-22 16:47] LABS: Partial Thromboplastin Time 61.5 Sec. (24.2-36.6)
[2018-08-23] MEDS: NITRO-BID 2% TP SCH ×3 (06:10→14:01)
[2018-08-23 06:45] LABS: Hematocrit 36.8 % (30.3-42.9); Hemoglobin 12.6 gm/dl (10.1-14.3)
[2018-08-23 06:59] LABS: BUN/Creatinine Ratio 22; Blood Urea Nitrogen 13 mg/dL (7-17); Calcium 9.1 mg/dL (8.4-10.2); Hemolysis Index 3
[2018-08-23] MEDS: LASIX PO SCH (09:18)
[2018-08-23] MEDS: PEPCID PO SCH (09:18)
[2018-08-23] MEDS: PLAVIX PO SCH (09:18)
[2018-08-23] MEDS: TOPROL XL PO SCH (09:18)
[2018-08-23] MEDS: COZAAR PO SCH (09:18)
[2018-08-23] MEDS: GLUCOTROL PO SCH (09:19)
[2018-08-23] MEDS: TRADJENTA PO SCH (09:19)
[2018-08-23] MEDS: CATAPRES PO SCH (09:19)
[2018-08-23] MEDS: HumaLOG SUB-Q SCH ×2 (09:20→14:00)
[2018-08-23] MEDS: APRESOLINE PO SCH (09:22)
[2018-08-23] MEDS: SODIUM CHLORIDE FLUSH SYRINGE 10 ML IV SCH (09:23)
[2018-08-23] MEDS: HALFPRIN EC PO SCH (09:24)
--- NOTE | 2018-08-23 10:07 | Progress Note ---
Assessment and Plan NSTEMI cardiac cath revealed ~ 50% distal left main stenosis; 70% tubular proximal to mid LAD stenosis; 70% tubular mid circumflex stenosis; patent proximal and mid RCA stents. LVEF 40% with hypokinesis of the apex, apical anterior and apical inferior aguilar. Ischemic cardiomyopathy Abnormal ECG History of CAD Recent CVA - on plavix and aspirin Hypertension An echocardiogram done 3 weeks ago revealed mild to moderate aortic regurgitation with a normal left ventricular systolic function, ejection fraction 60-65%. Subjective Date of service: 08/23/18 Principal diagnosis: NSTEMI Interval history: Patient is sitting up in the bedside chair. She denies chest pain and shortness of breath. Objective Vital Signs Temp Pulse Pulse Resp BP BP BP 08/23/18 09:22 63 129/58 08/23/18 09:19 63 129/58 08/23/18 09:18 63 129/58 08/23/18 03:04 97.9 F 65 16 134/49 08/22/18 23:00 98.0 F 61 16 122/51 08/22/18 22:16 68 141/72 08/22/18 21:00 18 08/22/18 19:47 97.7 F 68 18 141/72 08/22/18 18:53 66 08/22/18 18:35 67 151/58 08/22/18 17:06 98.5 F 66 14 127/53 08/22/18 14:00 64 64 143/64 143/64 08/22/18 12:00 59 L 18 122/59 08/22/18 11:16 68 136/56 08/22/18 11:10 68 136/56 08/22/18 11:09 61 136/56 08/22/18 10:57 98.1 F 61 18 136/56 Pulse Ox 08/23/18 09:22 08/23/18 09:19 08/23/18 09:18 08/23/18 03:04 95 08/22/18 23:00 96 08/22/18 22:16 08/22/18 21:00 98 08/22/18 19:47 93 08/22/18 18:53 08/22/18 18:35 08/22/18 17:06 90 08/22/18 14:00 08/22/18 12:00 08/22/18 11:16 08/22/18 11:10 08/22/18 11:09 08/22/18 10:57 95 - Physical Examination General: No Apparent Distress HEENT: Positive: PERRL Neck: Positive: trachea midline Cardiac: Positive: Reg Rate and Rhythm Lungs: Positive: Decreased Breath Sounds Neuro: Positive: Grossly Intact, Weakness Extremities: Absent: edema - Labs and Meds Coagulation 08/22/18 Range/Units 15:53 PT 13.9 (12.2-14.9) Sec. INR 1.01 (0.87-1.13) APTT 61.5 H* (24.2-36.6) Sec. CBC 08/22/18 08/23/18 Range/Units 13:29 06:16 Hgb 13.6 12.6 (10.1-14.3) gm/dl Hct 40.8 36.8 (30.3-42.9) % Plt Count 146 148 (140-440) K/mm3 Comprehensive Metabolic Panel 08/23/18 Range/Units 06:20 Sodium 139 (137-145) mmol/L Potassium 3.6 (3.6-5.0) mmol/L Chloride 100.9 (98-107) mmol/L Carbon Dioxide 27 (22-30) mmol/L BUN 13 (7-17) mg/dL Creatinine 0.6 L (0.7-1.2) mg/dL Glucose 131 H (65-100) mg/dL Calcium 9.1 (8.4-10.2) mg/dL
[2018-08-23 11:58] VITALS: BP 115/52
--- NOTE | 2018-08-23 13:10 | Discharge Summary ---
Providers - Providers Date of Admission: 08/21/18 14:24 Attending physician: ROSALIND SHAIKH MD 08/21/18 13:32 Consult to Physician [CONS] Stat Comment: Consulting Provider: MIQUEL ZEE Physician Instructions: Reason For Exam: abnormal ekg Primary care physician: FIRE FIGHTING EQUIPMENT SPECIALIST Hospitalization Reason for admission: NSTEMI Condition: Stable Pertinent studies: Cardiac cath Procedures: Cardiac cath Hospital course: 88 year old female with recent CVA and history of HTN and T2DM began having chest pain over the weekend, 4 days ago. States pain was left-sided radiating into her back and left arm. Denies shortness of breath, nausea, vomiting, diaphoresis. Patient states she woke up this morning and chest pain-free. However, was seen at her PCPs office and reported her chest pain. EKG was done and patient was sent to the ER. Patient has history of CAD, reports 4 stents placed several years ago. Denies tobacco use.Chest pain exertional also.Exacerbated by exertion.Relieved by rest. Patient was admitted to the floor, patient was treated for non STEMI, cardiology was consulted and did cath Here is cardiolohy recommendation Patient's cardiac catheterization revealed diffuse [id number] nonobstructive disease, including an eccentric ~40% stenosis of the left main. Most notably, the left ventricular angiogram shows ballooning of the left ventricular apex in systole, suggesting that her presentation was likely a subendocardial myocardial infarction resulting from "stress" or Takotsubo syndrome. Recommendations: treat the patient with beta blockers, nitrates and oral antiplatelet therapy, stable for cardiac discharge. As outpatient, we will obtain noninvasive ischemia assessment, and a CT surgery consultation for the borderline left main stenosis. Due to patient's advanced age and frailty she may ultimately be managed conservatively for asymptomatic left main stenosis of borderline severity. Discharge medications: Increase metoprolol to 25 mg twice a day, increase Lipitor 40 mg daily, continue aspirin 81 mg, add Plavix 75 mg daily, add Imdur 30 mg daily. Continue Olmesartan for blood pressure management. Follow-up in my office in one week. Patient was mechanically stable at the time of discharge. Appropriate medications were given and was scheduled to see cardiology in 2 weeks. Patient discharged home. Disposition: TO HOME OR SELFCARE Time spent for discharge: 34 minutes - Discharge Diagnoses (1) NSTEMI (non-ST elevated myocardial infarction) Status: Acute (2) HTN (hypertension) Status: Chronic Qualifiers: Hypertension type: essential hypertension Qualified Code(s): I10 - Essential (primary) hypertension (3) T2DM (type 2 diabetes mellitus) Status: Chronic Qualifiers: Diabetes mellitus senior care insulin use: without director recreation center use (4) CAD (coronary artery disease) Status: Acute (5) Hyperlipidemia Status: Chronic Qualifiers: Hyperlipidemia type: mixed hyperlipidemia Qualified Code(s): E78.2 - Mixed hyperlipidemia Core Measure Documentation - Palliative Care Palliative Care/ Comfort Measures: Not Applicable - Core Measures Any of the following diagnoses?: acute [place] - Acute [place] Discharge Requirements Aspirin at discharge: Yes MAXX/ARB for LVSD if EF <40%: Yes Beta rhianna at discharge: Yes Statin for LDL = or >100 mg/dl on DC: Yes Exam - Physical Exam Narrative exam: Not in cardiopulmonary distress. The patient appeared well nourished and normally developed. Vital signs as documented. Head exam is unremarkable. No scleral icterus . Neck is without jugular venous distension, thyromegaly, or carotid bruits. Lungs are clear to auscultation. Cardiac exam reveals regular rate and Rhythm. First and second heart sounds normal. No murmurs, rubs or gallops. Abdominal exam reveals normal bowel sounds, no masses, no organomegaly and no aortic enlargement. Extremities are nonedematous and both femoral and pedal pulses are normal. LANDMEN: Alert and oriented 3. No focal weakness. - Constitutional Vitals: Temp Pulse Resp BP Pulse Ox 97.3 F L 69 18 115/52 97 08/23/18 11:54 08/23/18 11:54 08/23/18 11:54 08/23/18 11:54 08/23/18 11:54 Plan Activity: no restrictions Weight Bearing Status: Full Weight Bearing Diet: low cholesterol, low salt Follow up with: PRIMARY MD TRISTIN [Primary Care Provider] - 3-5 Days MIQUEL ZEE MD [Staff Physician] - 14 Days Prescriptions: AtorvaSTATin [Lipitor] 40 mg PO QHS #30 tab Aspirin EC [Aspirin Enteric Coated TAB] 81 mg PO QDAY #30 tablet ISOSORBIDE MONOnitrate [Imdur ER] 30 mg PO DAILY #30 tab.er.24h Clopidogrel [Plavix] 75 mg PO QDAY #30 tablet Metoprolol Succinate [Toprol Xl] 25 mg PO BID #60 tab.er.24h
== END 2018-08-23 14:25 | disposition home or self-care (01) | DRG 281 ==
LOC: ED 11:01 → 4A 14:24
PROVIDERS: ADMIT Internal Medicine; ATTEND Internal Medicine
PROC: 4A023N7 Measurement of Cardiac Sampling and Pressure, Left Heart, Percutaneous Approach (ICD-10-PCS; principal; 2018-08-22)
PROC: B2111ZZ Fluoroscopy of Multiple Coronary Arteries using Low Osmolar Contrast (ICD-10-PCS; 2018-08-22)
PROC: B2151ZZ Fluoroscopy of Left Heart using Low Osmolar Contrast (ICD-10-PCS; 2018-08-22)
DX: I21.4 Non-ST elevation (NSTEMI) myocardial infarction (principal); I50.42 Chronic combined systolic (congestive) and diastolic (congestive) heart failure; I25.10 Atherosclerotic heart disease of native coronary artery without angina pectoris; I11.0 Hypertensive heart disease with heart failure; E11.9 Type 2 diabetes mellitus without complications; M19.90 Unspecified osteoarthritis, unspecified site; I35.1 Nonrheumatic aortic (valve) insufficiency; E78.2 Mixed hyperlipidemia; I25.5 Ischemic cardiomyopathy; Z79.82 Long term (current) use of aspirin; I25.2 Old myocardial infarction; Z79.84 Long term (current) use of oral hypoglycemic drugs; Z86.73 Personal history of transient ischemic attack (TIA), and cerebral infarction without residual deficits; Z95.5 Presence of coronary angioplasty implant and graft
CPT/HCPCS: 36415; 71045; 80048; 80053; 80061; 82962; 83036; 84484; 85014; 85018; 85025; 85049; 85520; 85610; 85730; 93005; 93010; 93458; 99291; G0378; A9270-GY; C1894; J1644; J2250; J3010; J7040; Q9967

== ENCOUNTER 2019-04-10 14:53 | Emergency (ER) | payer MEDICARE ==
--- NOTE | 2019-04-10 15:08 | Event Note ---
ED Screening Note Date of service: 04/10/19 Time: 15:04 ED Screening Note: This is a 88 y.o. F. that presents to the ER with abrasion to nose and LUE, right shoulder pain. Patient states she fell at home today. Denies loc, nausea, vomiting PMH of CAD, HTN, CHF, HLD, DM2 This initial assessment/diagnostic orders/clinical plan/treatment(s) is/are subject to change based on patients health status, clinical progression and re- assessment by fellow clinical providers in the ED. Further treatment and workup at subsequent clinical providers discretion. Patient/guardian urged not to elope from the ED as their condition may be serious if not clinically assessed and managed. Initial orders include: XR of right shoulder
--- NOTE | 2019-04-10 15:30 | XRay Report ---
RIGHT SHOULDER, 2 VIEWS INDICATION: pain and decreased ROM s/p fall. COMPARISON: None. IMPRESSION: Borderline to mild osteopenia. A comminuted nondisplaced fracture is identified through the right humeral neck. The humeral head is subluxed inferiorly with respect to the glenoid. The cla vicle and visualized scapula are grossly intact. Signer Name: [email or web address] Duarte Jr, MD Signed: 04/10/2019 3:26 PM Workstation Name: [id number]
[2019-04-10] MEDS ORDERED: ONDANSETRON 4 MG/2 ML INJ IV ONE (15:46)
[2019-04-10] MEDS ORDERED: fentaNYL 100 MCG/2 ML INJ IV ONE ×2 (15:46→19:19)
[2019-04-10] MEDS ORDERED: KETAMINE 500 MG/5 ML VIAL MDV IV ONE (15:46)
[2019-04-10] MEDS ORDERED: PROPOFOL 200 MG/20 ML VIAL IV ONE (15:46)
[2019-04-10] MEDS ORDERED: SODIUM CHLORIDE 0.9% 250ML 250 ML IV ONE (15:49)
--- NOTE | 2019-04-10 15:50 | Emergency Department Report ---
ED General Adult HPI - General Chief complaint: Fall Stated complaint: FALL Time Seen by Provider: 04/10/19 15:03 Source: patient, RN notes reviewed, old records reviewed Mode of arrival: Ambulatory Limitations: Physical Limitation - History of Present Illness Initial comments: This is a pleasant 88-year-old female. This patient is not known to this pr ovider previously. She is left-hand dominant. Her primary care doctor is Dr. Ravi Cardiology: Dr Chavo Glover Past medical history: Diabetes, hypertension, heart disease, stent. Patient presents to the emergency room after mechanical fall. re Ports that she slipped and fell, hit her right shoulder, right anterior chest wall, and nose. She reports that prior to the fall, she was not having any new or different symptoms. She has sharp throbbing right sided shoulder pain, which does not radiate anywhere, increases with palpation and decreases with rest. There is an anterior nasal abrasion and some nasal discomfort. She endorses some paraspinal neck pain. There is no endorsement of midline neck pain. There is no complaint of chest pain, abdominal pain, shortness of breath, urinary symptoms, incontinence, urinary retention Patient believes she last ate at 12:00 PM this afternoon, but she is not certain. -: Sudden Location: mouth, right, upper extremity Radiation: other Quality: other Consistency: other Improves with: other Worsens with: other - Related Data Home Medications Medication Instructions Recorded Confirmed Last Taken Furosemide [Lasix TAB] 40 mg PO QDAY 07/29/18 08/21/18 Unknown Linagliptin [Tradjenta] 5 mg PO QDAY 07/29/18 08/21/18 Unknown Olmesartan (Nf) [Benicar] 20 mg PO QDAY 07/29/18 08/21/18 Unknown cloNIDine [Catapres] 0.1 mg PO BID 07/29/18 08/21/18 Unknown glipiZIDE [Glipizide] 5 mg PO BIDAC 07/29/18 08/21/18 Unknown hydrALAZINE [Apresoline TAB] 25 mg PO BID 07/29/18 08/21/18 Unknown metFORMIN [Glucophage] 500 mg PO BID 07/29/18 08/21/18 Unknown Previous Rx's Medication Instructions Recorded Last Taken Type Aspirin EC [Halfprin EC] 81 mg PO QDAY #30 tablet 08/23/18 Unknown Rx AtorvaSTATin [Lipitor] 40 mg PO QHS #30 tab 08/23/18 Unknown Rx Clopidogrel [Plavix] 75 mg PO QDAY #30 tablet 08/23/18 Unknown Rx ISOSORBIDE MONOnitrate [Imdur ER] 30 mg PO DAILY #30 tab.er.24h 08/23/18 Unknown Rx Metoprolol Succinate [Toprol Xl] 25 mg PO BID #60 tab.er.24h 08/23/18 Unknown Rx Acetaminophen [Non-Aspirin Extra 500 mg PO Q6HR PRN #30 tablet 04/10/19 Unknown Rx Strength] Nitrofurantoin Desoto/M-Cryst 100 mg PO Q12HR #13 capsule 04/10/19 Unknown Rx [Macrobid CAP] oxyCODONE /ACETAMINOPHEN [Percocet 1 tab PO Q6HR PRN #10 tab 04/10/19 Unknown Rx 5/325] Allergies Allergy/AdvReac Type Severity Reaction Status Date / Time No Known Allergies Allergy Verified 07/28/18 01:51 ED Review of Systems ROS: Stated complaint: FALL Other details as noted in HPI Constitutional: denies: fever Eyes: denies: eye discharge ENT: denies: congestion Respiratory: denies: wheezing Cardiovascular: denies: syncope Gastrointestinal: denies: nausea, vomiting Genitourinary: denies: dysuria Musculoskeletal: arthralgia, myalgia Neurological: denies: weakness Hematological/Lymphatic: denies: easy bleeding ED Past Medical Hx - Past Medical History Hx Hypertension: Yes Hx CVA: No Hx Heart Attack/AMI: Yes Hx Congestive Heart Failure: Yes Hx Diabetes: Yes Hx Arthritis: Yes - Surgical History Hx Coronary Stent: Yes (4 stents) Additional Surgical History: Herniated Disc - Social History Smoking Status: Never Smoker - Medications Home Medications: Home Medications Medication Instructions Recorded Confirmed Last Taken Type Furosemide [Lasix TAB] 40 mg PO QDAY 07/29/18 08/21/18 Unknown History Linagliptin [Tradjenta] 5 mg PO QDAY 07/29/18 08/21/18 Unknown History Olmesartan (Nf) [Benicar] 20 mg PO QDAY 07/29/18 08/21/18 Unknown History cloNIDine [Catapres] 0.1 mg PO BID 07/29/18 08/21/18 Unknown History glipiZIDE [Glipizide] 5 mg PO BIDAC 07/29/18 08/21/18 Unknown History hydrALAZINE [Apresoline TAB] 25 mg PO BID 07/29/18 08/21/18 Unknown History metFORMIN [Glucophage] 500 mg PO BID 07/29/18 08/21/18 Unknown History Aspirin EC [Halfprin EC] 81 mg PO QDAY #30 tablet 08/23/18 Unknown Rx AtorvaSTATin [Lipitor] 40 mg PO QHS #30 tab 08/23/18 Unknown Rx Clopidogrel [Plavix] 75 mg PO QDAY #30 tablet 08/23/18 Unknown Rx ISOSORBIDE MONOnitrate [Imdur ER] 30 mg PO DAILY #30 tab.er.24h 08/23/18 Unknown Rx Metoprolol Succinate [Toprol Xl] 25 mg PO BID #60 tab.er.24h 08/23/18 Unknown Rx Acetaminophen [Non-Aspirin Extra 500 mg PO Q6HR PRN #30 tablet 04/10/19 Unknown Rx Strength] Nitrofurantoin Desoto/M-Cryst 100 mg PO Q12HR #13 capsule 04/10/19 Unknown Rx [Macrobid CAP] oxyCODONE /ACETAMINOPHEN [Percocet 1 tab PO Q6HR PRN #10 tab 04/10/19 Unknown Rx 5/325] ED Physical Exam - General Limitations: Physical Limitation General appearance: alert, in no apparent distress - Head Head exam: Present: normocephalic, other (superficial anterior nasal abrasion is noted) - Eye Eye exam: Present: normal appearance, PERRL, EOMI, other (visual acuity intact to finger counting, color perception, reading at a close distance). Absent: nystagmus - ENT ENT exam: Present: normal exam, normal orophraynx, mucous membranes moist, normal external ear exam - Neck Neck exam: Present: normal inspection, full ROM. Absent: tenderness, meningismus - Respiratory Respiratory exam: Present: normal lung sounds bilaterally, other (right anterior superior lateral chest wall ecchymosis. There is no crepitus.). Absent: respiratory distress - Cardiovascular Cardiovascular Exam: Present: regular rate, normal rhythm, normal heart sounds. Absent: bradycardia, tachycardia, irregular rhythm, systolic murmur, diastolic murmur, rubs, gallop - GI/Abdominal GI/Abdominal exam: Present: soft. Absent: distended, tenderness, guarding, rebound, rigid, pulsatile mass - Extremities Exam Extremities exam: Present: tenderness, other (2+ pulses noted in the bilateral upper, lower extremities. In the left upper extremity, there is no long bony tenderness, and there is full range of motion. The bilateral lower extremities, there is full range of motion, and no lower extremity tenderness. The pelvis is stable. Muscular compartments are soft in 4 extremities. The right upper extremity, there is full range of motion to the fingers, intrinsics, wrist, elbow. Thumb opposition and range of motion is intact. There is reproducible point tenderness to the proximal humerus. There is no elbow tenderness.). Absent: calf tenderness - Back Exam Back exam: Present: normal inspection. Absent: tenderness, CVA tenderness (R), CVA tenderness (L), paraspinal tenderness, vertebral tenderness - Neurological Exam Neurological exam: Present: alert, oriented X3, other (there is no facial droop. The tongue is midline. Extraocular movements are intact bilaterally. Patient speaking in full complete sentences. Shoulder shrug is intact bilaterally. Hearing is grossly intact bilaterally. Visual acuity intact to finger counting and color perception at a close distance. 5/5 strength 4 extremities. Sensation intact to light touch in 4 extremities.) - Psychiatric Psychiatric exam: Present: normal affect, normal mood - Skin Skin exam: Present: warm, abrasion, ecchymosis ED Course Vital Signs 04/10/19 04/10/19 04/10/19 15:03 15:36 16:16 Temperature 97.4 F L Temperature [ Intra-Procedure ] Temperature [ Post-Procedure] Temperature [ Pre-Procedure] Pulse Rate 80 Pulse Rate [ Intra-Procedure ] Pulse Rate [ Post-Procedure] Pulse Rate [Pre -Procedure] Respiratory 18 17 14 Rate Respiratory Rate [Intra- Procedure] Respiratory Rate [Post- Procedure] Respiratory Rate [Pre- Procedure] Blood Pressure 199/86 Blood Pressure [Intra- Procedure] Blood Pressure [Left] Blood Pressure [Post-Procedure ] Blood Pressure [Pre-Procedure] O2 Sat by Pulse 94 Oximetry O2 Sat by Pulse Oximetry [ Intra-Procedure ] O2 Sat by Pulse Oximetry [Post -Procedure] O2 Sat by Pulse Oximetry [Pre- Procedure] 04/10/19 04/10/19 04/10/19 16:30 16:36 16:45 Temperature Temperature [ 97.7 F Intra-Procedure ] Temperature [ 98.2 F Post-Procedure] Temperature [ 98.4 F Pre-Procedure] Pulse Rate 71 67 Pulse Rate [ 69 Intra-Procedure ] Pulse Rate [ 68 Post-Procedure] Pulse Rate [Pre 75 -Procedure] Respiratory 19 19 Rate Respiratory 19 Rate [Intra- Procedure] Respiratory 18 Rate [Post- Procedure] Respiratory 13 Rate [Pre- Procedure] Blood Pressure 187/63 Blood Pressure 186/57 [Intra- Procedure] Blood Pressure [Left] Blood Pressure 182/60 [Post-Procedure ] Blood Pressure 196/71 [Pre-Procedure] O2 Sat by Pulse 96 98 Oximetry O2 Sat by Pulse 98 Oximetry [ Intra-Procedure ] O2 Sat by Pulse 97 Oximetry [Post -Procedure] O2 Sat by Pulse 97 Oximetry [Pre- Procedure] 04/10/19 04/10/19 04/10/19 17:00 17:01 17:07 Temperature 98.4 F Temperature [ Intra-Procedure ] Temperature [ Post-Procedure] Temperature [ Pre-Procedure] Pulse Rate 69 67 68 Pulse Rate [ Intra-Procedure ] Pulse Rate [ Post-Procedure] Pulse Rate [Pre -Procedure] Respiratory 16 18 19 Rate Respiratory Rate [Intra- Procedure] Respiratory Rate [Post- Procedure] Respiratory Rate [Pre- Procedure] Blood Pressure 182/60 Blood Pressure [Intra- Procedure] Blood Pressure 182/60 [Left] Blood Pressure [Post-Procedure ] Blood Pressure [Pre-Procedure] O2 Sat by Pulse 98 98 Oximetry O2 Sat by Pulse Oximetry [ Intra-Procedure ] O2 Sat by Pulse Oximetry [Post -Procedure] O2 Sat by Pulse Oximetry [Pre- Procedure] 04/10/19 04/10/19 04/10/19 17:15 17:30 17:45 Temperature Temperature [ Intra-Procedure ] Temperature [ Post-Procedure] Temperature [ Pre-Procedure] Pulse Rate 68 77 69 Pulse Rate [ Intra-Procedure ] Pulse Rate [ Post-Procedure] Pulse Rate [Pre -Procedure] Respiratory 18 18 18 Rate Respiratory Rate [Intra- Procedure] Respiratory Rate [Post- Procedure] Respiratory Rate [Pre- Procedure] Blood Pressure 185/47 182/60 183/54 Blood Pressure [Intra- Procedure] Blood Pressure [Left] Blood Pressure [Post-Procedure ] Blood Pressure [Pre-Procedure] O2 Sat by Pulse 98 98 98 Oximetry O2 Sat by Pulse Oximetry [ Intra-Procedure ] O2 Sat by Pulse Oximetry [Post -Procedure] O2 Sat by Pulse Oximetry [Pre- Procedure] 1104/10/19 04/10/19 18:00 18:16 18:30 Temperature Temperature [ Intra-Procedure ] Temperature [ Post-Procedure] Temperature [ Pre-Procedure] Pulse Rate 71 75 70 Pulse Rate [ Intra-Procedure ] Pulse Rate [ Post-Procedure] Pulse Rate [Pre -Procedure] Respiratory 19 15 18 Rate Respiratory Rate [Intra- Procedure] Respiratory Rate [Post- Procedure] Respiratory Rate [Pre- Procedure] Blood Pressure 180/59 186/69 175/53 Blood Pressure [Intra- Procedure] Blood Pressure [Left] Blood Pressure [Post-Procedure ] Blood Pressure [Pre-Procedure] O2 Sat by Pulse 99 96 98 Oximetry O2 Sat by Pulse Oximetry [ Intra-Procedure ] O2 Sat by Pulse Oximetry [Post -Procedure] O2 Sat by Pulse Oximetry [Pre- Procedure] - Reevaluation(s) Reevaluation #1: 04/10/19 16:19 Differential diagnosis, including but not limited to: Fracture, dislocation, mechanical slip and fall, intracranial injury, facial injury, electrolyte derangement, deconditioning and urinary tract infection Assessment and plan: Pleasant sober and cooperative 88-year-old female, left hand dominant, status post reported slip and fall, with what appears to be isolated right proximal humerus fracture and dislocation. Does not appear to h ave any other significant injuries on her primary and/or secondary survey. She is awake, alert, oriented, sober and not distracted. She will be given pain medication. She has provided verbal and written informed consent with moderate sedation for closed reduction of right shoulder dislocation. X-rays transmitted to our orthopedist on-call, Dr. Richards, who is in agreement and advises that after reduction, patient may be discharged from an orthopedic standpoint with a shoulder immobilizer Patient will be treated with pain medication, and we will provide procedural sedation for shoulder reduction. Reevaluation #2: 04/10/19 17:58 Status post reduction, the patient is awake, alert, and has good neurovascular integrity and her right upper extremity. After 2 reduction attempts, please see documentation for these details, the humeral head appears to be satisfactorily reduced. x-ray was evaluated by our orthopedist, Dr. Richards, who also advised that alignment and reduction are satisfactory. Urinalysis, CT scan face, cervical spine brain pending at this time. Patient is asking to be discharged. 04/10/19 18:09 Reevaluation #3: 04/10/19 20:[address] scan of the brain, facial bones, cervical spine negative for acute traumatic findings. Multiple incidental presumed chronic findings noted. Urinalysis reviewed and appreciated. Patient is observed in this department for over 5 hours without clinical decompensation. She has not experienced any apparent, location from her sedation. The orthopedist of record has agreed to closely follow her up as an outpatient, the patient will need to call up to make an appointment. The patient is medically suitable for discharge at this point time. She is accompanied by a friend/television installer, who has indicated he will go home with the patient. - Moderate Sedation Indications: fracture/dislocation redu ASA Class: III Mallampati Airway Score: 2 Preparation: case monitor applied, pulse oximeter, capnometry used, supplemental O2 applied IV Propofol Dose (mgs): 60 Complications: none Patient Tolerated Procedure: well - Orthopedic Joint Reduction Joint #1 Consent Obtained: verbal consent, written consent, emergent situation Time Out Performed: Yes Side: right Joint Reduction Location: shoulder Analgesia: moderate sedation Technique Used: direct manipulation Post-Reduction Neuro Exam: intact Post-Reduction Vascular Exam: intact Post Reduction X-Ray Obtained: Yes Post Reduction X-Ray Results: other (subluxation improved) Splint Applied: Yes Patient Tolerated Procedure: well Additional Comments: After 40 mg propofol administration, the proximal right humerus was gently manipulated, and palpable clunk is appreciated. Postprocedure x-ray shows improvement in subluxation, but not complete reduction. Additional 20 mgpropofol administered, gentle manipulation again applied, and repeat x-ray is obtained. After a second manipulation, it appears that subluxation is reduced and anatomic alignment is satisfactory. Patient tolerated these procedures well. - Orthopedic Splinting/Casting Injury #1 Side: right Upper Extremity Injury Location: shoulder Upper Extremity Immobilizer: sling/shoulder immobilize ED Medical Decision Making - Lab Data Result diagrams: 04/10/19 16:24 04/10/19 16:24 Vital Signs 04/10/19 04/10/19 15:03 15:36 Temperature 97.4 F L Pulse Rate 80 Respiratory 18 17 Rate Blood Pressure 199/86 O2 Sat by Pulse 94 Oximetry - Radiology Data Radiology results: report reviewed, image reviewed Print Report Referring Physician: COREY VERDIN Patient Name: SANJIV HALL Date of : 1930 Sex: Female Report Date: 2019-04-10 Report Status: Finalized Findings [address] [address] XRay Report Signed Patient: SANJIV HALL MR#: [id number] : 1930 Acct:[id number] Age/Sex: 88 / F ADM Date: 04/10/19 Loc: ED Attending Dr: Ordering Physician: COREY VERDIN MD Date of Service: 04/10/19 Procedure(s): XR shoulder 1V RT Accession Number(s): [id number] cc: COREY VERDIN MD Fluoro Time In Minutes: XR RIGHT SHOULDER ONE VIEW INDICATION / CLINICAL INFORMATION: s/p reduction attempt COMPARISON: Right shoulder radiographs earlier same day FINDINGS: BONES / JOINT(S): Unchanged right humeral neck fracture. There is again mild inferior subluxation of the humeral head in respect to the glenoid, which appears slightly improved compared with most recent prior radiograph. SOFT TISSUES: Soft tissue swelling overlying the right shoulder. ADDITIONAL FINDINGS: None. Signer Name: Jamilah Pal MD Signed: 04/10/2019 5:23 PM Workstation Name: [id number] Transcribed By: [facility] Dictated By: Jamilah Pal MD Electronically Authenticated By: Jamilah Pal MD Signed Date/Time: 04/10/19 1723 Print Report Referring Physician: COREY VERDIN Patient Name: SANJIV HALL Date of : 1930 Sex: Female Report Date: 2019-04-10 Report Status: Finalized Findings [address] [address] XRay Report Signed Patient: SANJIV HALL MR#: [id number] : 1930 Acct:[id number] Age/Sex: 88 / F ADM Date: 04/10/19 Loc: ED Attending Dr: Ordering Physician: COREY VERDIN MD Date of Service: 04/10/19 Procedure(s): XR shoulder 1V RT Accession Number(s): [id number] cc: COREY VERDIN MD Fluoro Time In Minutes: XR RIGHT SHOULDER ONE VIEW INDICATION / CLINICAL INFORMATION: s/p reduction attempt COMPARISON: Right shoulder radiographs earlier same day FINDINGS: BONES / JOINT(S): Unchanged right humeral neck fracture. There is again mild inferior subluxation of the humeral head in respect to the glenoid, which appears slightly improved compared with most recent prior radiograph. SOFT TISSUES: Soft tissue swelling overlying the right shoulder. ADDITIONAL FINDINGS: None. Signer Name: Jamilah Pal MD Signed: 04/10/2019 5:23 PM Workstation Name: [id number] Transcribed By: C Dictated By: Jamilah Pal MD Electronically Authenticated By: Jamilah Pal MD Signed Date/Time: 04/10/19 0104 Critical care attestation.: If time is entered above; I have spent that time in minutes in the direct care of this critically ill patient, excluding procedure time. ED Disposition Clinical Impression: History of fall, Pyuria Closed fracture of right proximal humerus Qualifiers: Encounter type: initial encounter Fracture morphology: unspecified fracture morphology Qualified Code(s): S42.201A - Unspecified fracture of upper end of right humerus, initial encounter for closed fracture Nasal contusion Qualifiers: Encounter type: initial encounter Qualified Code(s): S00.33XA - Contusion of nose, initial encounter Shoulder subluxation, right Qualifiers: Encounter type: initial encounter Qualified Code(s): S43.001A - Unspecified subluxation of right shoulder joint, initial encounter Disposition: DC-01 TO HOME OR SELFCARE Is pt being admited?: No Does the pt Need Aspirin: No Condition: Stable Instructions: Moderate Sedation (ED), Arm Fracture in Adults (ED) Additional Instructions: Cultures were sent today, and results will be available in the next 3-5 days. Take the antibiotics as directed, have your primary care doctor contact the medical records department to obtain culture results. Patient may take Tylenol every 4-6 hours as directed, alternating with Percocet, every 4-6 hours as directed. Maximum daily dose of Tylenol should not exceed 4 g per [address] or operate motor vehicles when taking Percocet and do not consume alcohol. Recommend patient follow up with an orthopedic surgeon within the next [address] Richards is a local orthopedic surgeon. Recommend checkup/evaluation/follow-up for repeat exam in 2-3 days. Patient may follow-up with her primary care doctor, return to the emergency room, or go to an urgent care center for repeat checkup and evaluation. Return to the emergency room right away with projectile vomiting, change in mental status, confusion, inability to tolerate liquid feeds, new, worsened or different symptoms not present on initial emergency room evaluation. For the time being, do not take Motrin, ibuprofen, Naprosyn, Aleve until cleared to do so by either her primary care doctor or orthopedist. Keep the shoulder sling in place, and do not remove until cleared to do so by an orthopedic surgeon. When bathing, patient may cover the right upper extremity with a plastic bag. Take the antibiotics as directed. Pain typically gets worse before gets better after mechanical fall. Referrals: PRIMARY MD TRISTIN [Primary Care Provider] - 3-5 Days ANIA RICHARDS MD [Staff Physician] - 3-5 Days [facility] [Provider Group] - 3-5 Days
[2019-04-10] MEDS ORDERED: TETANUS,DIPH,PERTUSS(ACELL) VACCINE 0.5 ML SYRINGE IM ONE (16:19)
--- NOTE | 2019-04-10 17:28 | XRay Report ---
XR RIGHT SHOULDER ONE VIEW INDICATION / CLINICAL INFORMATION: s/p reduction attempt COMPARISON: Right shoulder radiographs earlier same day FINDINGS: BONES / JOINT(S): Unchanged right humeral neck fracture. There is again mild inferior subluxation of the humeral head in respect to the glenoid, which appears slightly improved compared with most recent prior radiograph. SOFT TISSUES: Soft tissue swelling overlying the right shoulder. ADDITIONAL FINDINGS: None. Signer Name: Jamilah Pal MD Signed: 04/10/2019 5:23 PM Workstation Name: [id number]
[2019-04-10 17:35] LABS: INR 1.13 (0.87-1.13)
[2019-04-10 17:37] LABS: Hematocrit 41.5 % (30.3-42.9); Hemoglobin 13.4 gm/dl (10.1-14.3); Mean Corpuscular HGB Conc 32 % (30-34); Mean Corpuscular Volume 91 fl (79-97); Platelet Count 147 K/mm3 (140-440); Red Blood Count 4.58 M/mm3 (3.65-5.03); Red Cell Distribution Width 13.9 % (13.2-15.2)
[2019-04-10 17:38] LABS: BUN/Creatinine Ratio 33; Blood Urea Nitrogen 20 mg/dL (7-17); Calcium 9.3 mg/dL (8.4-10.2); Hemolysis Index 24
--- NOTE | 2019-04-10 17:38 | XRay Report ---
RIGHT SHOULDER ONE VIEW INDICATION / CLINICAL INFORMATION: s/p reduction COMPARISON: 04/10/2019, 1523 hours FINDINGS: BONES / JOINT(S): Right humeral neck fracture is again noted. Subluxed humeral head is been reduced a nd now appears in satisfactory position relative to the glenoid. SOFT TISSUES: There is soft tissue swelling ADDITIONAL FINDINGS: None. Signer Name: Riki Calderon MD Signed: 04/10/2019 5:34 PM Workstation Name: [id number]
[2019-04-10 19:00] VITALS: BP 175/53
[2019-04-10 19:10] LABS: Bilirubin,Urine NEG (Negative); Blood,Urine NEG (Negative); Calcium Oxalate Crystals,Urine 1+; Color,Urine Yellow (Yellow); Mucus,Urine FEW /HPF; Protein,Urine <15 mg/dL mg/dL (Negative); Urobilinogen,Urine < 2.0 mg/dL (<2.0)
[2019-04-10] MEDS ORDERED: oxyCODONE /ACETAMINOPHEN 5-325MG TAB PO ONE (19:19)
--- NOTE | 2019-04-10 19:33 | Cat Scan Report ---
CT head/brain wo con INDICATION / CLINICAL INFORMATION: 88 years Female; fall head trauma. TECHNIQUE: Routine CT head without contrast. All CT scans at this location are performed using CT dos e reduction for ALARA by means of automated exposure control. COMPARISON: CT - 07/27/2018 FINDINGS: BRAIN / INTRACRANIAL CONTENTS: No acute hemorrhage, mass effect, midline shift, hydrocephalus, or acu te, large territorial infarct. Mild to moderate cerebral and cerebellar atrophy. Small lacunar infarcts seen in the gangliocapsular and thalamic regions. There are moderate to extensive areas of decreased attenuation in the white matter of the cerebral he mispheres, as well as the gangliocapsular regions. These are nonspecific findings and may be related to microangiopathy (hypertension, diabetes, atherosclerosis), given the patient's age. It might be di fficult to evaluate for small areas of ischemia without diffusion imaging by MRI. Pontine disease not ed. CRANIOCERVICAL JUNCTION: No significant abnormality. ORBITS: No significant abnormality of visualized orbits. SINUSES / MASTOIDS: Mild mucosal thickening seen in the ethmoids. ADDITIONAL FINDINGS: Atherosclerotic disease is seen in the anterior and posterior circulation. IMPRESSION: 1. No focal mass, hemorrhage, hydrocephalus, or acute, large territorial infarct. Signer Name: David Meng MD, III Signed: 04/10/2019 7:29 PM Workstation Name: [id number]
--- NOTE | 2019-04-10 19:36 | Cat Scan Report ---
CT facial bones wo con INDICATION / CLINICAL INFORMATION: 88 years Female; fall head trauma. TECHNIQUE: Thin cut axial images obtained to the facial bones. Sagittal and coronal reconstructions performed. A ll CT scans at this location are performed using CT dose reduction for ALARA by means of automated ex posure control. COMPARISON: None available. FINDINGS: No definitive signs of acute bony facial trauma. There is mild to moderate mucosal thickening in the ethmoids. Atherosclerotic disease is seen in the anterior and posterior circulation. Poor dentition noted. IMPRESSION: 1. No signs of acute bony facial trauma. Signer Name: David Meng MD, III Signed: 04/10/2019 7:31 PM Workstation Name: [id number]
--- NOTE | 2019-04-10 19:43 | Cat Scan Report ---
CT cervical spine wo con INDICATION / CLINICAL INFORMATION: 88 years Female; fall head trauma. TECHNIQUE: Axial CT images of the cervical spine were obtained. Sagittal and coronal reformatted images were pr oduced. All CT scans at this location are performed using CT dose reduction for ALARA by means of aut omated exposure control. COMPARISON: None available. FINDINGS: POST-SURGICAL CHANGES: None. ALIGNMENT: Normal cervical lordosis seen without significant scoliosis. VERTEBRAE: No signs of fracture. Vertebral bodies are grossly normal in height throughout. Mild to moderate facet hypertrophy seen at various levels. No significant osseous foraminal narrowing appreciated. INTRAVERTEBRAL DISCS:Disc spaces are fairly well-maintained throughout without significant canal sten osis. Minimal disc disease suggested at various levels. Certainly, no dominant herniation is seen. PARASPINAL SOFT TISSUES: No significant abnormality. ADDITIONAL FINDINGS: Atherosclerotic disease is seen in the carotid bifurcation regions bilaterally. Minimal involvement of vertebral artery seen as well. Scarring type changes seen in both lung apices. IMPRESSION: 1. No signs of acute bony trauma to the cervical spine. Signer Name: David Meng MD, III Signed: 04/10/2019 7:38 PM Workstation Name: [id number]
[2019-04-10] MEDS ORDERED: NITROFURANTOIN MONOHYD/M-CRYST 100 MG CAP PO ONE (20:05)
== END 2019-04-10 21:00 | disposition home or self-care (01) ==
LOC: ED 14:53
DX: S42.201A Unspecified fracture of upper end of right humerus, initial encounter for closed fracture (principal); S43.001A Unspecified subluxation of right shoulder joint, initial encounter; S00.33XA Contusion of nose, initial encounter; I11.0 Hypertensive heart disease with heart failure; I50.9 Heart failure, unspecified; E11.9 Type 2 diabetes mellitus without complications; M19.90 Unspecified osteoarthritis, unspecified site; W18.30XA Fall on same level, unspecified, initial encounter; Y93.89 Activity, other specified; Y92.89 Other specified places as the place of occurrence of the external cause; Y99.8 Other external cause status
CPT/HCPCS: 23675; 36415; 70450; 70486; 72125; 73020; 73030; 80048; 81001; 82550; 83735; 85027; 85610; 85730; 87086; 90471; 90715; 96374; 99285; J2405; J2704; J3010; J7050

== ENCOUNTER 2019-04-12 08:44 | Emergency (ER) | payer MEDICARE ==
--- NOTE | 2019-04-12 10:28 | Emergency Department Report ---
ED Upper Extremity Inj HPI - General Chief Complaint: Extremity Problem,Nontraumatic Stated Complaint: R SHOULDER INJURY Source: patient, family Mode of arrival: Ambulatory Limitations: No Limitations - History of Present Illness Initial Comments: 88 yo female seen in this ER 2 days ago s/p fall. She denies any new falls or injuries. She states that something doesn't "feel right" with her right shoulder. She has not filled her rx for pain. Requesting re-examination to make sure she did not dislocate her shoulder again Complaint: Injury to:: right, shoulder Other Extremity Injury: Shoulder: Right Other Injuries: none Improves With: immobilization Worsens With: movement of extremity Context: other (fall 2 days ago) Associated Symptoms: denies other symptoms Treatments Prior to Arrival: other (right arm sling) - Related Data Home Medications Medication Instructions Recorded Confirmed Last Taken Furosemide [Lasix TAB] 40 mg PO QDAY 07/29/18 08/21/18 Unknown Linagliptin [Tradjenta] 5 mg PO QDAY 07/29/18 08/21/18 Unknown Olmesartan (Nf) [Benicar] 20 mg PO QDAY 07/29/18 08/21/18 Unknown cloNIDine [Catapres] 0.1 mg PO BID 07/29/18 08/21/18 Unknown glipiZIDE [Glipizide] 5 mg PO BIDAC 07/29/18 08/21/18 Unknown hydrALAZINE [Apresoline TAB] 25 mg PO BID 07/29/18 08/21/18 Unknown metFORMIN [Glucophage] 500 mg PO BID 07/29/18 08/21/18 Unknown Previous Rx's Medication Instructions Recorded Last Taken Type Aspirin EC [Halfprin EC] 81 mg PO QDAY #30 tablet 08/23/18 Unknown Rx AtorvaSTATin [Lipitor] 40 mg PO QHS #30 tab 08/23/18 Unknown Rx Clopidogrel [Plavix] 75 mg PO QDAY #30 tablet 08/23/18 Unknown Rx ISOSORBIDE MONOnitrate [Imdur ER] 30 mg PO DAILY #30 tab.er.24h 08/23/18 Unknown Rx Metoprolol Succinate [Toprol Xl] 25 mg PO BID #60 tab.er.24h 08/23/18 Unknown Rx Acetaminophen [Non-Aspirin Extra 500 mg PO Q6HR PRN #30 tablet 04/10/19 Unknown Rx Strength] Nitrofurantoin [place]/M-Cryst 100 mg PO Q12HR #13 capsule 04/10/19 Unknown Rx [Macrobid CAP] oxyCODONE /ACETAMINOPHEN [Percocet 1 tab PO Q6HR PRN #10 tab 04/10/19 Unknown Rx 5/325] Allergies Allergy/AdvReac Type Severity Reaction Status Date / Time No Known Allergies Allergy Verified 07/28/18 01:51 ED Review of Systems ROS: Stated complaint: R SHOULDER INJURY Other details as noted in HPI Comment: All other systems reviewed and negative Musculoskeletal: other (right shoulder and right upper arm pain ) ED Past Medical Hx - Past Medical History Previous Medical History?: Yes Hx Hypertension: Yes Hx CVA: No Hx Heart Attack/AMI: Yes Hx Congestive Heart Failure: Yes Hx Diabetes: Yes Hx Arthritis: Yes - Surgical History Past Surgical History?: Yes Hx Coronary Stent: Yes (4 stents) Additional Surgical History: Herniated Disc - Social History Smoking Status: Never Smoker - Medications Home Medications: Home Medications Medication Instructions Recorded Confirmed Last Taken Type Furosemide [Lasix TAB] 40 mg PO QDAY 07/29/18 08/21/18 Unknown History Linagliptin [Tradjenta] 5 mg PO QDAY 07/29/18 08/21/18 Unknown History Olmesartan (Nf) [Benicar] 20 mg PO QDAY 07/29/18 08/21/18 Unknown History cloNIDine [Catapres] 0.1 mg PO BID 07/29/18 08/21/18 Unknown History glipiZIDE [Glipizide] 5 mg PO BIDAC 07/29/18 08/21/18 Unknown History hydrALAZINE [Apresoline TAB] 25 mg PO BID 07/29/18 08/21/18 Unknown History metFORMIN [Glucophage] 500 mg PO BID 07/29/18 08/21/18 Unknown History Aspirin EC [Halfprin EC] 81 mg PO QDAY #30 tablet 08/23/18 Unknown Rx AtorvaSTATin [Lipitor] 40 mg PO QHS #30 tab 08/23/18 Unknown Rx Clopidogrel [Plavix] 75 mg PO QDAY #30 tablet 08/23/18 Unknown Rx ISOSORBIDE MONOnitrate [Imdur ER] 30 mg PO DAILY #30 tab.er.24h 08/23/18 Unknown Rx Metoprolol Succinate [Toprol Xl] 25 mg PO BID #60 tab.er.24h 08/23/18 Unknown Rx Acetaminophen [Non-Aspirin Extra 500 mg PO Q6HR PRN #30 tablet 04/10/19 Unknown Rx Strength] Nitrofurantoin [place]/M-Cryst 100 mg PO Q12HR #13 capsule 04/10/19 Unknown Rx [Macrobid CAP] oxyCODONE /ACETAMINOPHEN [Percocet 1 tab PO Q6HR PRN #10 tab 04/10/19 Unknown Rx 5/325] ED Physical Exam - General Limitations: No Limitations General appearance: alert, in no apparent distress - Head Head exam: Present: atraumatic - Eye Eye exam: Present: normal appearance - ENT ENT exam: Present: normal exam - Neck Neck exam: Present: normal inspection - Respiratory Respiratory exam: Present: normal lung sounds bilaterally - Cardiovascular Cardiovascular Exam: Present: regular rate, normal heart sounds - GI/Abdominal GI/Abdominal exam: Present: soft, normal bowel sounds. Absent: distended, tenderness, guarding - Expanded Upper Extremity Exam Right Shoulder Exam: Present: normal inspection. Absent: deformity, dislocation Upper Arm exam: Present: swelling, ecchymosis Vascular: Present: normal capillary refill. Absent: Pallo, pulse deficit radial art, pulse deficit ulnar art - Neurological Exam Neurological exam: Present: alert, oriented X3 - Psychiatric Psychiatric exam: Present: normal affect - Skin Skin exam: Present: warm, ecchymosis (right upper arm and right shoulder) ED Course Vital Signs 04/12/19 04/12/19 08:53 11:04 Temperature 97.5 F L Pulse Rate 85 81 Respiratory 16 16 Rate Blood Pressure 159/89 Blood Pressure 154/81 [Left] O2 Sat by Pulse 96 97 Oximetry ED Medical Decision Making - Radiology Data Radiology results: report reviewed COMPARISON: Right shoulder radiographs 04/10/2019 FINDINGS: BONES / JOINT(S): No significant change of a right humeral neck fracture. There is persistent mild inferior subluxation of the humeral head in respect to the glenoid, similar to prior study. SOFT TISSUES: Mild soft tissue swelling overlying the right shoulder. ADDITIONAL FINDINGS: None. - Medical Decision Making COMPARISON: Right shoulder radiographs 04/10/2019 FINDINGS: BONES / JOINT(S): No significant change of a right humeral neck fracture. There is persistent mild inferior subluxation of the humeral head in respect to the glenoid, similar to p rior study. SOFT TISSUES: Mild soft tissue swelling overlying the right shoulder. ADDITIONAL FINDINGS: None. Critical Care Time: No Critical care attestation.: If time is entered above; I have spent that time in minutes in the direct care of this critically ill patient, excluding procedure time. ED Disposition Clinical Impression: Closed fracture of right proximal humerus Qualifiers: Encounter type: subsequent encounter Fracture morphology: other fracture Fracture alignment: nondisplaced Fracture healing: with routine healing Qualified Code(s): S42.294D - Other nondisplaced fracture of upper end of right humerus, subsequent encounter for fracture with routine healing Disposition: TO HOME OR SELFCARE Is pt being admited?: No Does the pt Need Aspirin: No Condition: Stable Additional Instructions: Follow up with Orthopedist Dr. Richards as instructed on 04/10/19. Continue with pain medications prescribed on 04/10/19. Continue with cool compress on for 15 minutes then off for 15 do at least 3 times daily. Continue with right arm sling Referrals: PRIMARY CARE, [Primary Care Provider] - 3-5 Days Time of Disposition: 10:43
--- NOTE | 2019-04-12 10:32 | XRay Report ---
XR RIGHT SHOULDER 4 VIEWS INDICATION / CLINICAL INFORMATION: s/p right humeral head dislocation COMPARISON: Right shoulder radiographs 04/10/2019 FINDINGS: BONES / JOINT(S): No significant change of a right humeral neck fracture. There is persistent mild in ferior subluxation of the humeral head in respect to the glenoid, similar to prior study. SOFT TISSUES: Mild soft tissue swelling overlying the right shoulder. ADDITIONAL FINDINGS: None. Signer Name: Jamilah Pal MD Signed: 04/12/2019 10:27 AM Workstation Name: [id number]
[2019-04-12 11:05] VITALS: BP 154/81
== END 2019-04-12 11:04 | disposition home or self-care (01) ==
LOC: ED 08:44
DX: S42.294D Other nondisplaced fracture of upper end of right humerus, subsequent encounter for fracture with routine healing (principal); I11.0 Hypertensive heart disease with heart failure; I50.9 Heart failure, unspecified; I25.2 Old myocardial infarction; M19.90 Unspecified osteoarthritis, unspecified site; E11.9 Type 2 diabetes mellitus without complications; Z79.899 Other long term (current) drug therapy; Z95.818 Presence of other cardiac implants and grafts; X58.XXXD Exposure to other specified factors, subsequent encounter

== ENCOUNTER 2020-09-29 19:45 | Inpatient (IN) | payer MEDICARE ==
[2020-09-29 21:50] LABS: Basophils % (Auto) 0.3 % (0.0-1.8); Eosinophils % (Auto) 0.5 % (0.0-4.3); Hematocrit 40.8 % (30.3-42.9); Hemoglobin 13.9 gm/dl (10.1-14.3); Lymphocytes # (Auto) 2.5 K/mm3 (1.2-5.4); Lymphocytes % (Auto) 26.8 % (13.4-35.0); Mean Corpuscular HGB Conc 34 % (30-34); Mean Corpuscular Volume 85 fl (79-97); Monocytes # (Auto) 0.9 K/mm3 (0.0-0.8); Monocytes % (Auto) 10.2 % (0.0-7.3); Platelet Count 170 K/mm3 (140-440); Red Blood Count 4.79 M/mm3 (3.65-5.03); Red Cell Distribution Width 13.8 % (13.2-15.2)
[2020-09-29 22:07] LABS: Alanine Aminotransferase 14 units/L (7-56); Albumin 4.1 g/dL (3.9-5); BUN/Creatinine Ratio 29; Blood Urea Nitrogen 23 mg/dL (7-17); Calcium 9.6 mg/dL (8.4-10.2); Hemolysis Index 8
[2020-09-29 22:44] LABS: Bacteria,Urine 1+ /HPF (Negative); Bilirubin,Urine NEG (Negative); Blood,Urine SM (Negative); Color,Urine Yellow (Yellow); Mucus,Urine FEW /HPF; Urobilinogen,Urine < 2.0 mg/dL (<2.0)
[2020-09-30] MEDS ORDERED: cefTRIAXone/NS 1 GM/50 ML 1 GM/50 ML BAG IV ONE (00:07)
[2020-09-30] MEDS ORDERED: SODIUM CHLORIDE 0.9% 1000 ML 1,000 ML IV ONE (00:07)
--- NOTE | 2020-09-30 00:12 | Emergency Department Report ---
ED Altered Mental Status HPI - General Chief Complaint: Altered Mental Status Stated Complaint: CONFUSION/PANIC/PARANOID Time Seen by Provider: 09/30/20 00:00 Source: patient Mode of arrival: Ambulatory Limitations: Altered Mental Status - History of Present Illness Initial Comments: Patient is 89 years old female with history of hypertension, coronary artery disease and congestive heart failure. Patient brought to the emergency room by her grandson for evaluation of altered mental status since yesterday. Grandson stated that she has been having a visual hallucination. Patient told me that she is seeing things and when she tried to grab it is not there. She is alert, oriented x3 in no acute distress. She denied any headache, focal weakness numbness or tingling sensation. She also denied any chest pain or shortness of breath. No abdominal pain. Patient stated that she is slightly nauseated and she has not been drinking fluids much too. She is not sure if she is having increased urinary frequency or not. Patient denied any fever or chills. Grandson stated that this is happened 1 time before. No previous history of dementia. MD Complaint: altered mental status, confusion -: Last night Severity: moderate Consistency of Symptoms: waxing and waning Associated Symptoms: denies other symptoms - Related Data Home Medications Medication Instructions Recorded Confirmed Last Taken Furosemide [Lasix TAB] 40 mg PO QDAY 07/29/18 08/21/18 Unknown Linagliptin [Tradjenta] 5 mg PO QDAY 07/29/18 08/21/18 Unknown Olmesartan (Nf) [Benicar] 20 mg PO QDAY 07/29/18 08/21/18 Unknown cloNIDine [Catapres] 0.1 mg PO BID 07/29/18 08/21/18 Unknown glipiZIDE [Glipizide] 5 mg PO BIDAC 07/29/18 08/21/18 Unknown hydrALAZINE [Apresoline TAB] 25 mg PO BID 07/29/18 08/21/18 Unknown metFORMIN [Glucophage] 500 mg PO BID 07/29/18 08/21/18 Unknown Previous Rx's Medication Instructions Recorded Last Taken Type Aspirin EC [Halfprin EC] 81 mg PO QDAY #30 tablet 08/23/18 Unknown Rx AtorvaSTATin [Lipitor] 40 mg PO QHS #30 tab 08/23/18 Unknown Rx Clopidogrel [Plavix] 75 mg PO QDAY #30 tablet 08/23/18 Unknown Rx ISOSORBIDE MONOnitrate [Imdur ER] 30 mg PO DAILY #30 tab.er.24h 08/23/18 Unknown Rx Metoprolol Succinate [Toprol Xl] 25 mg PO BID #60 tab.er.24h 08/23/18 Unknown Rx Acetaminophen [Non-Aspirin Extra 500 mg PO Q6HR PRN #30 tablet 04/10/19 Unknown Rx Strength] Nitrofurantoin [place]/M-Cryst 100 mg PO Q12HR #13 capsule 04/10/19 Unknown Rx [Macrobid CAP] oxyCODONE /ACETAMINOPHEN [Percocet 1 tab PO Q6HR PRN #10 tab 04/10/19 Unknown Rx 5/325] Allergies Allergy/AdvReac Type Severity Reaction Status Date / Time No Known Allergies Allergy Verified 07/28/18 01:51 ED Review of Systems ROS: Stated complaint: CONFUSION/PANIC/PARANOID Other details as noted in HPI Comment: All other systems reviewed and negative Constitutional: denies: chills, fever Respiratory: denies: cough (She tried to vomit or what), shortness of breath, SOB with exertion, wheezing Cardiovascular: denies: chest pain, palpitations Gastrointestinal: nausea. denies: abdominal pain, vomiting, diarrhea Neurological: confusion. denies: headache, weakness, numbness, paresthesias, abnormal gait Psychiatric: visual hallucinations. denies: depression, auditory hallucinations, homicidal thoughts, suicidal thoughts ED Past Medical Hx - Past Medical History Hx Hypertension: Yes Hx CVA: No Hx Heart Attack/AMI: Yes Hx Congestive Heart Failure: Yes Hx Diabetes: Yes Hx Arthritis: Yes - Surgical History Hx Coronary Stent: Yes (4 stents) Additional Surgical History: Herniated Disc - Social History Smoking Status: Never Smoker - Medications Home Medications: Home Medications Medication Instructions Recorded Confirmed Last Taken Type Furosemide [Lasix TAB] 40 mg PO QDAY 07/29/18 08/21/18 Unknown History Linagliptin [Tradjenta] 5 mg PO QDAY 07/29/18 08/21/18 Unknown History Olmesartan (Nf) [Benicar] 20 mg PO QDAY 07/29/18 08/21/18 Unknown History cloNIDine [Catapres] 0.1 mg PO BID 07/29/18 08/21/18 Unknown History glipiZIDE [Glipizide] 5 mg PO BIDAC 07/29/18 08/21/18 Unknown History hydrALAZINE [Apresoline TAB] 25 mg PO BID 07/29/18 08/21/18 Unknown History metFORMIN [Glucophage] 500 mg PO BID 07/29/18 08/21/18 Unknown History Aspirin EC [Halfprin EC] 81 mg PO QDAY #30 tablet 08/23/18 Unknown Rx AtorvaSTATin [Lipitor] 40 mg PO QHS #30 tab 08/23/18 Unknown Rx Clopidogrel [Plavix] 75 mg PO QDAY #30 tablet 08/23/18 Unknown Rx ISOSORBIDE MONOnitrate [Imdur ER] 30 mg PO DAILY #30 tab.er.24h 08/23/18 Unkno wn Rx Metoprolol Succinate [Toprol Xl] 25 mg PO BID #60 tab.er.24h 08/23/18 Unknown Rx Acetaminophen [Non-Aspirin Extra 500 mg PO Q6HR PRN #30 tablet 04/10/19 Unknown Rx Strength] Nitrofurantoin [place]/M-Cryst 100 mg PO Q12HR #13 capsule 04/10/19 Unknown Rx [Macrobid CAP] oxyCODONE /ACETAMINOPHEN [Percocet 1 tab PO Q6HR PRN #10 tab 04/10/19 Unknown Rx 5/325] ED Physical Exam - General Limitations: Altered Mental Status General appearance: alert, in no apparent distress - Head Head exam: Present: atraumatic, normocephalic, normal inspection - Eye Eye exam: Present: normal appearance, PERRL - ENT ENT exam: Present: mucous membranes dry - Neck Neck exam: Present: normal inspection, full ROM. Absent: tenderness, men ingismus - Respiratory Respiratory exam: Present: normal lung sounds bilaterally - Cardiovascular Cardiovascular Exam: Present: regular rate, normal rhythm, normal heart sounds - GI/Abdominal GI/Abdominal exam: Present: soft, normal bowel sounds. Absent: distended, tenderness, guarding, rebound, rigid, mass, bruit, pulsatile mass, hernia - Extremities Exam Extremities exam: Present: normal inspection, full ROM, normal capillary refill. Absent: tenderness - Neurological Exam Neurological exam: Present: alert, oriented X3, CN II-XII intact, normal gait, reflexes normal. Absent: abnormal gait, motor sensory deficit - Psychiatric Psychiatric exam: Present: normal mood - Skin Skin exam: Present: warm, dry, intact, normal color - Assessment Assessment Interval: Baseline - Level of Consciousness 1a. Level of Consciousness: alert/keenly responsive - LOC Questions 1b. LOC Questions: answers both correctly - LOC Command 1c. LOC Commands: performs tasks correctly - Best Gaze 2. Best Gaze: normal - Visual 3. Visual: no visual loss - Facial Palsy 4. Facial Palsy: normal symmetrical movement - Motor Arm 5a. Motor Arm Left: no drift 5b. Motor Arm Right: no drift - Motor Leg 6a. Motor Leg Left: no drift 6b. Motor Leg Right: no drift - Limb Ataxia 7. Limb Ataxia: absent - Sensory 8. Sensory: normal - Best Language 9. Best Language: no aphasia - Dysarthria 10. Dysarthria: normal - Extinction and Inattention 11. Extinction/Inattention: no abnormality - Scoring Total Score: 0 Stroke Severity: No Stroke Symptoms ED Course Vital Signs 09/29/20 21:21 Temperature 98.4 F Pulse Rate 82 Respiratory 16 Rate Blood Pressure 115/62 O2 Sat by Pulse 95 Oximetry - Lab Data Result diagrams: 09/29/20 21:35 09/29/20 21:35 Lab Results 09/29/20 09/29/20 09/29/20 Range/Units 21:35 21:35 Unknown WBC 9.2 (4.5-11.0) K/mm3 RBC 4.79 (3.65-5.03) M/mm3 Hgb 13.9 (10.1-14.3) gm/dl Hct 40.8 (30.3-42.9) % MCV 85 (79-97) fl MCH 29 (28-32) pg MCHC 34 (30-34) % RDW 13.8 (13.2-15.2) % Plt Count 170 (140-440) K/mm3 Lymph % (Auto) 26.8 (13.4-35.0) % [place] % (Auto) 10.2 H (0.0-7.3) % Eos % (Auto) 0.5 (0.0-4.3) % Baso % (Auto) 0.3 (0.0-1.8) % Lymph # (Auto) 2.5 (1.2-5.4) K/mm3 [place] # (Auto) 0.9 H (0.0-0.8) K/mm3 Eos # (Auto) 0.0 (0.0-0.4) K/mm3 Baso # (Auto) 0.0 (0.0-0.1) K/mm3 Seg Neutrophils % 62.2 (40.0-70.0) % Seg Neutrophils # 5.7 (1.8-7.7) K/mm3 Sodium 138 (137-145) mmol/L Potassium 4.0 (3.6-5.0) mmol/L Chloride 102.1 (98-107) mmol/L Carbon Dioxide 25 (22-30) mmol/L Anion Gap 15 mmol/L BUN 23 H (7-17) mg/dL Creatinine 0.8 (0.6-1.2) mg/dL Estimated GFR > 60 ml/min BUN/Creatinine Ratio 29 % Glucose 137 H (65-100) mg/dL Calcium 9.6 (8.4-10.2) mg/dL Total Bilirubin 0.50 (0.1-1.2) mg/dL AST 26 (5-40) units/L ALT 14 (7-56) units/L Alkaline Phosphatase 102 (35-129) units/L Total Protein 6.4 (6.3-8.2) g/dL Albumin 4.1 (3.9-5) g/dL Albumin/Globulin Ratio 1.8 % Urine Color Yellow (Yellow) Urine Turbidity Cloudy (Clear) Urine pH 6.0 (5.0-7.0) Ur Specific [place] 1.019 (1.003-1.030) Urine Protein 30 mg/dl (Negative) mg/dL Urine Glucose (UA) 50 (Negative) mg/dL Urine Ketones 20 (Negative) mg/dL Urine Blood Sm (Negative) Urine Nitrite Neg (Negative) Urine Bilirubin Neg (Negative) Urine Urobilinogen < 2.0 (<2.0) mg/dL Ur Leukocyte Esterase Lg (Negative) Urine WBC (Auto) 131.0 H (0.0-6.0) /HPF Urine RBC (Auto) 9.0 (0.0-6.0) /HPF U Epithel Cells (Auto) 5.0 (0-13.0) /HPF Urine Bacteria (Auto) 1+ (Negative) /HPF Urine Mucus Few /HPF - EKG Data -: EKG Interpreted by Co EKG shows normal: sinus rhythm Interpretation: no acute changes - Radiology Data Radiology results: report reviewed - Medical Decision Making Patient is 89 years old female with history of hypertension, coronary artery di sease and congestive heart failure. Patient brought to the emergency room by her grandson for evaluation of altered mental status since yesterday. Grandson stated that she has been having a visual hallucination. Patient told me that she is seeing things and when she tried to grab it is not there. She is alert, oriented x3 in no acute distress. She denied any headache, focal weakness numbness or tingling sensation. She also denied any chest pain or shortness of breath. No abdominal pain. Patient stated that she is slightly nauseated and she has not been drinking fluids much too. She is not sure if she is having increased urinary frequency or not. Patient denied any fever or chills. Grandson stated that this is happened 1 time before. No previous history of dementia. Labs reviewed and unremarkable except for significant UTI and ketones in the urine also indicating dehydration. Patient received normal saline and Rocephin. Stroke scale is 0. I believe patient symptom is most likely delirium secondary to UTI and dehydration. I discussed the patient with Dr. Guerrero, he agreed to admit the patient to medical service for further management. Critical care attestation.: If time is entered above; I have spent that time in minutes in the direct care o f this critically ill patient, excluding procedure time. ED Disposition Clinical Impression: Altered mental status, UTI (urinary tract infection), Delirium Disposition: OP ADMIT IP TO THIS HOSP Is pt being admited?: Yes Condition: Stable
--- NOTE | 2020-09-30 03:27 | Cat Scan Report ---
CT HEAD WITHOUT CONTRAST INDICATION : Altered Mental Status. TECHNIQUE: Axial, coronal and sagittal CT imaging was performed from the skull apex through the skul l base without contrast. All CT scans at this location are performed using CT dose reduction for ALA RA by means of automated exposure control. COMPARISON: CT head without contrast from 04/10/2019. FINDINGS: PARENCHYMA: No mass, midline shift, hemorrhage, extraaxial collection or acute territorial infarctio n. Generalized atrophy is again noted with probable extensive chronic microvascular ischemic changes along the periventricular white matter. Bilateral basal ganglial calcifications are unchanged. VENTRICLES: Enlarged secondary to atrophy without acute abnormalities. SOFT TISSUES: No significant abnormality of the included soft tissues/orbits. BONES: No acute osseous abnormality. SINUSES: No significant abnormality. ADDITIONAL FINDINGS: Dense calcification of the anterior and posterior circulation is again noted. IMPRESSION: No acute intracranial abnormality. No significant interval changes. Signer Name: Scott Garner MD Signed: 09/30/2020 3:22 AM Workstation Name: [id number]
[2020-09-30] MEDS ORDERED: ONDANSETRON 4 MG/2 ML INJ IV PRN (03:41)
[2020-09-30] MEDS ORDERED: DEXTROSE 50% IN WATER (25GM) 50 ML SYRINGE IV PRN (03:41)
[2020-09-30] MEDS ORDERED: ACETAMINOPHEN 325 MG TAB PO PRN (03:41)
[2020-09-30] MEDS: cefTRIAXone/NS 1 GM/50 ML 1 GM/50 ML BAG IV SCH (03:44)
--- NOTE | 2020-09-30 04:33 | History and Physical Report ---
History of Present Illness Date of examination: 09/30/20 Date of admission: 09/30/20 03:17 Chief complaint: AMS, [place] History of present illness: 89-year-old female with history of CVA, HTN, DM 2, CHF, arthritis presents [facility] mental status and visual hallucinations. Patient's is present at bedside and has assisted with providing history. According to patient has been seeing things and when she tried to grab it, nothing wa s there. Additionally he report inappropriate speech and responses to situation. Endorses visual hallucinations, not feeling like her normal self family patient behaved in this manner 1 time before. Denies history of dementia or Alzheimer's. When asked about urinary symptoms patient states she was unsure whether or not she experienced dysuria, hematuria, or urinary frequency. Denies fever, chills, cough, nausea, vomiting, diarrhea, constipation, recent injury/fall, alterations in gait, abdominal pain, or recent sick contact Past History Past Medical History: arthritis, diabetes, heart failure, hypertension, stroke Past Surgical History: Other ("Herniated Disc surgery", stent x4) Social history: , lives with family, IV drug use, full code. denies: smoking, alcohol abuse, prescription drug abuse Family history: hypertension Medications and Allergies Allergies Allergy/AdvReac Type Severity Reaction Status Date / Time No Known Allergies Allergy Verified 07/28/18 01:51 Home Medications Medication Instructions Recorded Confirmed Last Taken Type Furosemide [Lasix TAB] 40 mg PO QDAY 07/29/18 08/21/18 Unknown History Linagliptin [Tradjenta] 5 mg PO QDAY 07/29/18 08/21/18 Unknown History Olmesartan (Nf) [Benicar] 20 mg PO QDAY 07/29/18 08/21/18 Unknown History cloNIDine [Catapres] 0.1 mg PO BID 07/29/18 08/21/18 Unknown History glipiZIDE [Glipizide] 5 mg PO BIDAC 07/29/18 08/21/18 Unknown History hydrALAZINE [Apresoline TAB] 25 mg PO BID 07/29/18 08/21/18 Unknown History metFORMIN [Glucophage] 500 mg PO BID 07/29/18 08/21/18 Unknown History Aspirin EC [Halfprin EC] 81 mg PO QDAY #30 tablet 08/23/18 Unknown Rx AtorvaSTATin [Lipitor] 40 mg PO QHS #30 tab 08/23/18 Unknown Rx Clopidogrel [Plavix] 75 mg PO QDAY #30 tablet 08/23/18 Unknown Rx ISOSORBIDE MONOnitrate [Imdur ER] 30 mg PO DAILY #30 tab.er.24h 08/23/18 Unknown Rx Metoprolol Succinate [Toprol Xl] 25 mg PO BID #60 tab.er.24h 08/23/18 Unknown Rx Acetaminophen [Non-Aspirin Extra 500 mg PO Q6HR PRN #30 tablet 04/10/19 Unknown Rx Strength] Nitrofurantoin [place]/M-Cryst 100 mg PO Q12HR #13 capsule 04/10/19 Unknown Rx [Macrobid CAP] oxyCODONE /ACETAMINOPHEN [Percocet 1 tab PO Q6HR PRN #10 tab 04/10/19 Unknown Rx 5/325] Active Meds: Active Medications Acetaminophen (Acetaminophen 325 Mg Tab) 650 mg PO Q4H PRN PRN Reason: Pain MILD(1-3)/Fever >100.5/GASCA Aspirin (Aspirin Ec 81 Mg Tab) 81 mg PO QDAY MARLEN Atorvastatin Calcium (Atorvastatin 20 Mg Tab) 40 mg PO QHS MARLEN Clopidogrel Bisulfate (Clopidogrel 75 Mg Tab) 75 mg PO QDAY [facility] Dextrose (Dextrose 50% In Water (25gm) 50 Ml Syringe) 0 ml IV Q30MIN PRN; Pro tocol PRN Reason: Hypoglycemia Docusate Sodium (Docusate Sodium 100 Mg Cap) 100 mg PO BID MARLEN Famotidine (Famotidine 20 Mg Tab) 20 mg PO BID MARLEN Furosemide (Furosemide 40 Mg Tab) 40 mg PO QDAY [facility] Heparin Sodium (Porcine) (Heparin 5,000 Unit/1 Ml Vial) 5,000 unit SUB-Q Q12HR [facility] Hydralazine HCl (Hydralazine 25 Mg Tab) 25 mg PO BID [facility] Ceftriaxone Sodium (Rocephin/Ns 1 Gm/50 Ml) 1 gm in 50 mls @ 100 mls/hr IV Q24H [facility]; Protocol Last Admin: 09/30/20 03:44 Dose: Not Given Documented by: Insulin Glargine (Insulin Glargine 100 Units/Ml) 10 units SUB-Q QAMDIAB [facility] Insulin Human Lispro (Insulin Lispro 100 Unit/Ml) 0 unit SUB-Q ACHS [facility]; Protocol Metoprolol Succinate (Metoprolol Succinate Xl 25 Mg Tab) 25 mg PO BID MARLNE Ondansetron HCl (Ondansetron 4 Mg/2 Ml Inj) 4 mg IV Q6H PRN PRN Reason: Nausea And Vomiting Sodium Chloride (Sodium Chloride 0.9% 10 Ml Flush Syringe) 10 ml IV BID MARLEN Sodium Chloride (Sodium Chloride 0.9% 10 Ml Flush Syringe) 10 ml IV PRN PRN PRN Reason: LINE FLUSH Review of Systems All systems: negative (As noted in HPI) Exam - Physical Exam Narrative exam: Physical exam General appearance: Present: No acute distress, well nourished, pleasant, older adult female - EENT Eyes: Present: PERRL, EOM intact ENT: hearing intact, normal dentition - Neck Neck: Present: supple, normal ROM - Respiratory Respiratory effort: Non-labored Respiratory: Clear throughout - Cardiovascular Heart rate: 91 (bpm) Rhythm: Sinus Heart Sounds: Present: S1 & S2. Absent: rub, click - Extremities Extremities: no ischemia, pulses intact, - Peripheral Assessment Peripheral Pulses: within normal limits - Abdominal General gastrointestinal: soft, non-tender, normal bowel sounds - Integumentary Integumentary: Present: warm, dry - Musculoskeletal Musculoskeletal: Able to move all extremities -Neurological Neurological: CN II-XII intact, oriented x3 - Psychiatric Psychiatric: cooperative - Constitutional Vitals: Temp Pulse Resp BP Pulse Ox 98.4 F 82 16 115/62 95 09/29/20 21:21 09/29/20 21:21 09/29/20 21:21 09/29/20 21:21 09/29/20 21:21 HEART Score - HEART Score Troponin: WBC 9.2 K/mm3 (4.5-11.0) 09/29/20 21:35 RBC 4.79 M/mm3 (3.65-5.03) 09/29/20 21:35 Hgb 13.9 gm/dl (10.1-14.3) 09/29/20 21:35 Hct 40.8 % (30.3-42.9) 09/29/20 21:35 MCV 85 fl (79-97) 09/29/20 21:35 MCH 29 pg (28-32) 09/29/20 21:35 MCHC 34 % (30-34) 09/29/20 21:35 RDW 13.8 % (13.2-15.2) 09/29/20 21:35 Plt Count 170 K/mm3 (140-440) 09/29/20 21:35 Lymph % (Auto) 26.8 % (13.4-35.0) 09/29/20 21:35 [place] % (Auto) 10.2 % (0.0-7.3) H 09/29/20 21:35 Eos % (Auto) 0.5 % (0.0-4.3) 09/29/20 21:35 Baso % (Auto) 0.3 % (0.0-1.8) 09/29/20 21:35 Lymph # (Auto) 2.5 K/mm3 (1.2-5.4) 09/29/20 21:35 [place] # (Auto) 0.9 K/mm3 (0.0-0.8) H 09/29/20 21:35 Eos # (Auto) 0.0 K/mm3 (0.0-0.4) 09/29/20 21:35 Baso # (Auto) 0.0 K/mm3 (0.0-0.1) 09/29/20 21:35 Seg Neutrophils % 62.2 % (40.0-70.0) 09/29/20 21:35 Seg Neutrophils # 5.7 K/mm3 (1.8-7.7) 09/29/20 21:35 Sodium 138 mmol/L (137-145) 09/29/20 21:35 Potassium 4.0 mmol/L (3.6-5.0) 09/29/20 21:35 Chloride 102.1 mmol/L (98-107) 09/29/20 21:35 Carbon Dioxide 25 mmol/L (22-30) 09/29/20 21:35 Anion Gap 15 mmol/L 09/29/20 21:35 BUN 23 mg/dL (7-17) H 09/29/20 21:35 Creatinine 0.8 mg/dL (0.6-1.2) 09/29/20 21:35 Estimated GFR > 60 ml/min 09/29/20 21:35 BUN/Creatinine Ratio 29 % 09/29/20 21:35 Glucose 137 mg/dL (65-100) H 09/29/20 21:35 Calcium 9.6 mg/dL (8.4-10.2) 09/29/20 21:35 Total Bilirubin 0.50 mg/dL (0.1-1.2) 09/29/20 21:35 AST 26 units/L (5-40) 09/29/20 21:35 ALT 14 units/L (7-56) 09/29/20 21:35 Alkaline Phosphatase 102 units/L (35-129) 09/29/20 21:35 Total Protein 6.4 g/dL (6.3-8.2) 09/29/20 21:35 Albumin 4.1 g/dL (3.9-5) 09/29/20 21:35 Albumin/Globulin Ratio 1.8 % 09/29/20 21:35 Urine Color Yellow (Yellow) 09/29/20 Unknown Urine Turbidity Cloudy (Clear) 09/29/20 Unknown Urine pH 6.0 (5.0-7.0) 09/29/20 Unknown Ur Specific [place] 1.019 (1.003-1.030) 09/29/20 Unknown Urine Protein 30 mg/dl mg/dL (Negative) 09/29/20 Unknown Urine Glucose (UA) 50 mg/dL (Negative) 09/29/20 Unknown Urine Ketones 20 mg/dL (Negative) 09/29/20 Unknown Urine Blood Sm (Negative) 09/29/20 Unknown Urine Nitrite Neg (Negative) 09/29/20 Unknown Urine Bilirubin Neg (Negative) 09/29/20 Unknown Urine Urobilinogen < 2.0 mg/dL (<2.0) 09/29/20 Unknown Ur Leukocyte Esterase Lg (Negative) 09/29/20 Unknown Urine WBC (Auto) 131.0 /HPF (0.0-6.0) H 09/29/20 Unknown Urine RBC (Auto) 9.0 /HPF (0.0-6.0) 09/29/20 Unknown U Epithel Cells (Auto) 5.0 /HPF (0-13.0) 09/29/20 Unknown Urine Bacteria (Auto) 1+ /HPF (Negative) 09/29/20 Unknown Urine Mucus Few /HPF 09/29/20 Unknown Results - Labs CBC & Chem 7: 09/29/20 21:35 09/29/20 21:35 Labs: Laboratory Last Values WBC 9.2 K/mm3 (4.5-11.0) 09/29/20 21:35 RBC 4.79 M/mm3 (3.65-5.03) 09/29/20 21:35 Hgb 13.9 gm/dl (10.1-14.3) 09/29/20 21:35 Hct 40.8 % (30.3-42.9) 09/29/20 21:35 MCV 85 fl (79-97) 09/29/20 21:35 MCH 29 pg (28-32) 09/29/20 21:35 MCHC 34 % (30-34) 09/29/20 21:35 RDW 13.8 % (13.2-15.2) 09/29/20 21:35 Plt Count 170 K/mm3 (140-440) 09/29/20 21:35 Lymph % (Auto) 26.8 % (13.4-35.0) 09/29/20 21:35 [place] % (Auto) 10.2 % (0.0-7.3) H 09/29/20 21:35 Eos % (Auto) 0.5 % (0.0-4.3) 09/29/20 21:35 Baso % (Auto) 0.3 % (0.0-1.8) 09/29/20 21:35 Lymph # (Auto) 2.5 K/mm3 (1.2-5.4) 09/29/20 21:35 [place] # (Auto) 0.9 K/mm3 (0.0-0.8) H 09/29/20 21:35 Eos # (Auto) 0.0 K/mm3 (0.0-0.4) 09/29/20 21:35 Baso # (Auto) 0.0 K/mm3 (0.0-0.1) 09/29/20 21:35 Seg Neutrophils % 62.2 % (40.0-70.0) 09/29/20 21:35 Seg Neutrophils # 5.7 K/mm3 (1.8-7.7) 09/29/20 21:35 Sodium 138 mmol/L (137-145) 09/29/20 21:35 Potassium 4.0 mmol/L (3.6-5.0) 09/29/20 21:35 Chloride 102.1 mmol/L (98-107) 09/29/20 21:35 Carbon Dioxide 25 mmol/L (22-30) 09/29/20 21:35 Anion Gap 15 mmol/L 09/29/20 21:35 BUN 23 mg/dL (7-17) H 09/29/20 21:35 Creatinine 0.8 mg/dL (0.6-1.2) 09/29/20 21:35 Estimated GFR > 60 ml/min 09/29/20 21:35 BUN/Creatinine Ratio 29 % 09/29/20 21:35 Glucose 137 mg/dL (65-100) H 09/29/20 21:35 Calcium 9.6 mg/dL (8.4-10.2) 09/29/20 21:35 Total Bilirubin 0.50 mg/dL (0.1-1.2) 09/29/20 21:35 AST 26 units/L (5-40) 09/29/20 21:35 ALT 14 units/L (7-56) 09/29/20 21:35 Alkaline Phosphatase 102 units/L (35-129) 09/29/20 21:35 Total Protein 6.4 g/dL (6.3-8.2) 09/29/20 21:35 Albumin 4.1 g/dL (3.9-5) 09/29/20 21:35 Albumin/Globulin Ratio 1.8 % 09/29/20 21:35 Urine Color Yellow (Yellow) 09/29/20 Unknown Urine Turbidity Cloudy (Clear) 09/29/20 Unknown Urine pH 6.0 (5.0-7.0) 09/29/20 Unknown Ur Specific [place] 1.019 (1.003-1.030) 09/29/20 Unknown Urine Protein 30 mg/dl mg/dL (Negative) 09/29/20 Unknown Urine Glucose (UA) 50 mg/dL (Negative) 09/29/20 Unknown Urine Ketones 20 mg/dL (Negative) 09/29/20 Unknown Urine Blood Sm (Negative) 09/29/20 Unknown Urine Nitrite Neg (Negative) 09/29/20 Unknown Urine Bilirubin Neg (Negative) 09/29/20 Unknown Urine Urobilinogen < 2.0 mg/dL (<2.0) 09/29/20 Unknown Ur Leukocyte Esterase Lg (Negative) 09/29/20 Unknown Urine WBC (Auto) 131.0 /HPF (0.0-6.0) H 09/29/20 Unknown Urine RBC (Auto) 9.0 /HPF (0.0-6.0) 09/29/20 Unknown U Epithel Cells (Auto) 5.0 /HPF (0-13.0) 09/29/20 Unknown Urine Bacteria (Auto) 1+ /HPF (Negative) 09/29/20 Unknown Urine Mucus Few /HPF 09/29/20 Unknown - Imaging and Cardiology Imaging and Cardiology: CT Head: FINDINGS: PARENCHYMA: No mass, midline shift, hemorrhage, extraaxial collection or acute territorial infarction. Generalized atrophy is again noted with probable extensive chronic microvascular ischemic changes along the periventricular white matter. Bilateral basal ganglial calcifications are unc hanged. VENTRICLES: Enlarged secondary to atrophy without acute abnormalities. SOFT TISSUES: No significant abnormality of the included soft tissues/orbits. BONES: No acute osseous abnormality. SINUSES: No significant abnormality. ADDITIONAL FINDINGS: Dense calcification of the anterior and posterior circulation is again noted. IMPRESSION: No acute intracranial abnormality. No significant interval changes Assessment and Plan Assessment and plan: Acute metabolic encephalopathy -CT head negative -Afebrile -UA positive, UC pending -Neuro checks -Supportive care Urinary tract infection -UA positive for UTI -urine wbc 131, leukocyte positive -Urine culture pending -on IV Abx Dehydration -Mild BUN 23 -Received 1 L NS in the ED -Given patient's history of heart failure hold off for now on additional fluids -Encourage oral intake HTN -Monitor BP -Resume home hypertensive meds DM -POC BG monitoring -Schedule Lantus and SSI coverage prn -HgbA1C pending History of CHF -Noted -Resume home meds when appropriate -Follows [facility] as outpatient VTE prophylaxis?: Chemical, Mechanical Plan of care discussed with patient/family: Yes
[2020-09-30] MEDS: INSULIN LISPRO 100 UNIT/ML SUB-Q SCH ×4 (07:37→22:16)
[2020-09-30] MEDS ORDERED: INSULIN GLARGINE 100 UNITS/ML SUB-Q SCH (08:00)
[2020-09-30] MEDS: ASPIRIN EC 81 MG TAB PO SCH (09:23)
[2020-09-30] MEDS: FAMOTIDINE 20 MG TAB PO SCH ×2 (09:23→21:01)
[2020-09-30] MEDS: FUROSEMIDE 40 MG TAB PO SCH (09:23)
[2020-09-30] MEDS: DOCUSATE SODIUM 100 MG CAP PO SCH ×2 (09:23→21:01)
[2020-09-30] MEDS: CLOPIDOGREL 75 MG TAB PO SCH (09:23)
[2020-09-30] MEDS: METOPROLOL SUCCINATE XL 25 MG TAB PO SCH ×2 (09:28→21:01)
[2020-09-30] MEDS: hydrALAZINE 25 MG TAB PO SCH ×2 (09:29→21:01)
[2020-09-30] MEDS: HEPARIN 5,000 UNIT/1 ML VIAL SUB-Q SCH ×2 (09:29→21:01)
--- NOTE | 2020-09-30 10:17 | Progress Note ---
Assessment and Plan Assessment and plan: --Acute metabolic encephalopathy; present on admission Factorial possible dehydration, dementia, possible UTI CT head negative for acute abnormality Follow cultures, continue empiric antibiotics --Possible urinary tract infection UA analysis consistent with UTI Continue empiric antibiotics Follow cultures --Dehydration; Gentle IV hydration, encourage plenty of oral fluids Closely monitor --History of HTN; moderate control Continue current antihypertensives As needed hydralazine --Type II DM; Accu-Chek sliding scale coverage ADA diet Insulin as needed Check A1c, diabetic diet and diabetic education --History of CHF; Resume antifailure medications Input output monitoring Cardiology consult if needed --DVT prophylaxis; subcu heparin --Full CODE STATUS We will closely monitor the patient and adjust management as needed Plan of care reviewed with the patient and her nurse Advance care planning 35 minutes History Interval history: I have seen and examined the patient at the bedside this morning Patient's chart and medications reviewed Patient was admitted with altered level of consciousness and metabolic encephalopathy She is more alert and awake today, wants to go home Did not like the breakfast, does not want to be here Loud and verbal Vital signs reviewed Hospitalist Physical - Constitutional Vitals: Temp Pulse Resp BP Pulse Ox 98.4 F 86 15 156/66 96 09/29/20 21:21 09/30/20 09:29 09/30/20 04:15 09/30/20 09:29 09/30/20 04:15 General appearance: Present: mild distress, well-nourished, obese - EENT Eyes: Present: PERRL, EOM intact - Neck Neck: Present: supple, normal ROM - Respiratory Respiratory effort: normal Respiratory: bilateral: diminished, negative: rales, rhonchi, wheezing - Cardiovascular Rhythm: regular Heart Sounds: Present: S1 & S2 - Extremities Extremities: no ischemia, No edema - Abdominal General gastrointestinal: soft, non-tender, non-distended, normal bowel sounds - Integumentary Integumentary: Present: clear, warm - Psychiatric Psychiatric: appropriate mood/affect, cooperative - Neurologic Neurologic: CNII-XII intact, moves all extremities Results - Labs CBC & Chem 7: 09/29/20 21:35 09/29/20 21:35 Labs: Laboratory Last Values WBC 9.2 K/mm3 (4.5-11.0) 09/29/20 21:35 RBC 4.79 M/mm3 (3.65-5.03) 09/29/20 21:35 Hgb 13.9 gm/dl (10.1-14.3) 09/29/20 21:35 Hct 40.8 % (30.3-42.9) 09/29/20 21:35 MCV 85 fl (79-97) 09/29/20 21:35 MCH 29 pg (28-32) 09/29/20 21:35 MCHC 34 % (30-34) 09/29/20 21:35 RDW 13.8 % (13.2-15.2) 09/29/20 21:35 Plt Count 170 K/mm3 (140-440) 09/29/20 21:35 Lymph % (Auto) 26.8 % (13.4-35.0) 09/29/20 21:35 [place] % (Auto) 10.2 % (0.0-7.3) H 09/29/20 21:35 Eos % (Auto) 0.5 % (0.0-4.3) 09/29/20 21:35 Baso % (Auto) 0.3 % (0.0-1.8) 09/29/20 21:35 Lymph # (Auto) 2.5 K/mm3 (1.2-5.4) 09/29/20 21:35 [place] # (Auto) 0.9 K/mm3 (0.0-0.8) H 09/29/20 21:35 Eos # (Auto) 0.0 K/mm3 (0.0-0.4) 09/29/20 21:35 Baso # (Auto) 0.0 K/mm3 (0.0-0.1) 09/29/20 21:35 Seg Neutrophils % 62.2 % (40.0-70.0) 09/29/20 21:35 Seg Neutrophils # 5.7 K/mm3 (1.8-7.7) 09/29/20 21:35 Sodium 138 mmol/L (137-145) 09/29/20 21:35 Potassium 4.0 mmol/L (3.6-5.0) 09/29/20 21:35 Chloride 102.1 mmol/L (98-107) 09/29/20 21:35 Carbon Dioxide 25 mmol/L (22-30) 09/29/20 21:35 Anion Gap 15 mmol/L 09/29/20 21:35 BUN 23 mg/dL (7-17) H 09/29/20 21:35 Creatinine 0.8 mg/dL (0.6-1.2) 09/29/20 21:35 Estimated GFR > 60 ml/min 09/29/20 21:35 BUN/Creatinine Ratio 29 % 09/29/20 21:35 Glucose 137 mg/dL (65-100) H 09/29/20 21:35 Hemoglobin A1c 7.1 % (4-6) H 09/30/20 07:12 Calcium 9.6 mg/dL (8.4-10.2) 09/29/20 21:35 Total Bilirubin 0.50 mg/dL (0.1-1.2) 09/29/20 21:35 AST 26 units/L (5-40) 09/29/20 21:35 ALT 14 units/L (7-56) 09/29/20 21:35 Alkaline Phosphatase 102 units/L (35-129) 09/29/20 21:35 Total Protein 6.4 g/dL (6.3-8.2) 09/29/20 21:35 Albumin 4.1 g/dL (3.9-5) 09/29/20 21:35 Albumin/Globulin Ratio 1.8 % 09/29/20 21:35 Urine Color Yellow (Yellow) 09/29/20 Unknown Urine Turbidity Cloudy (Clear) 09/29/20 Unknown Urine pH 6.0 (5.0-7.0) 09/29/20 Unknown Ur Specific [place] 1.019 (1.003-1.030) 09/29/20 Unknown Urine Protein 30 mg/dl mg/dL (Negative) 09/29/20 Unknown Urine Glucose (UA) 50 mg/dL (Negative) 09/29/20 Unknown Urine Ketones 20 mg/dL (Negative) 09/29/20 Unknown Urine Blood Sm (Negative) 09/29/20 Unknown Urine Nitrite Neg (Negative) 09/29/20 Unknown Urine Bilirubin Neg (Negative) 09/29/20 Unknown Urine Urobilinogen < 2.0 mg/dL (<2.0) 09/29/20 Unknown Ur Leukocyte Esterase Lg (Negative) 09/29/20 Unknown Urine WBC (Auto) 131.0 /HPF (0.0-6.0) H 09/29/20 Unknown Urine RBC (Auto) 9.0 /HPF (0.0-6.0) 09/29/20 Unknown U Epithel Cells (Auto) 5.0 /HPF (0-13.0) 09/29/20 Unknown Urine Bacteria (Auto) 1+ /HPF (Negative) 09/29/20 Unknown Urine Mucus Few /HPF 09/29/20 Unknown Active Medications - Current Medications Current Medications: Generic Name Dose Route Start Last Admin Trade Name Freq PRN Reason Stop Dose Admin Acetaminophen 650 mg 09/30/20 03:41 Acetaminophen 325 Mg Tab PO Q4H PRN Pain MILD(1-3)/Fever >100.5/GASCA Aspirin 81 mg 09/30/20 10:00 09/30/20 09:23 Aspirin Ec 81 Mg Tab PO 81 mg QDAY MARLEN Administration Atorvastatin Calcium 40 mg 09/30/20 22:00 Atorvastatin 20 Mg Tab PO QHS MARLEN Clopidogrel Bisulfate 75 mg 09/30/20 10:00 09/30/20 09:23 Clopidogrel 75 Mg Tab PO 75 mg QDAY MARLEN Administration Dextrose 0 ml 09/30/20 03:41 Dextrose 50% In Water (25gm) 50 Ml Syringe IV Q30MIN PRN Hypoglycemia Protocol Docusate Sodium 100 mg 09/30/20 10:00 09/30/20 09:23 Docusate Sodium 100 Mg Cap PO 100 mg BID MARLEN Administration Famotidine 20 mg 09/30/20 10:00 09/30/20 09:23 Famotidine 20 Mg Tab PO 20 mg BID MARLEN Administration Furosemide 40 mg 09/30/20 10:00 09/30/20 09:23 Furosemide 40 Mg Tab PO 40 mg QDAY MARLEN Administration Heparin Sodium (Porcine) 5,000 unit 09/30/20 10:00 09/30/20 09:29 Heparin 5,000 Unit/1 Ml Vial SUB-Q 5,000 unit Q12HR MARLEN Administration Hydralazine HCl 25 mg 09/30/20 10:00 09/30/20 09:29 Hydralazine 25 Mg Tab PO 25 mg BID MARLEN Administration Ceftriaxone Sodium 1 gm in 50 mls @ 100 mls/hr 09/30/20 04:00 09/30/20 03:44 Rocephin/Ns 1 Gm/50 Ml IV Not Given Q24H [facility]LEN Protocol Insulin Glargine 10 units 09/30/20 08:00 09/30/20 07:37 Insulin Glargine 100 Units/Ml SUB-Q Not Given QAMDIAB [facility] Insulin Human Lispro 0 unit 09/30/20 07:30 09/30/20 07:37 Insulin Lispro 100 Unit/Ml SUB-Q Not Given ACHS [facility] Protocol Metoprolol Succinate 25 mg 09/30/20 10:00 09/30/20 09:28 Metoprolol Succinate Xl 25 Mg Tab PO 25 mg BID MARLEN Administration Ondansetron HCl 4 mg 09/30/20 03:41 Ondansetron 4 Mg/2 Ml Inj IV Q6H PRN Nausea And Vomiting Sodium Chloride 10 ml 09/30/20 10:00 09/30/20 09:23 Sodium Chloride 0.9% 10 Ml Flush Syringe IV 10 ml BID MARLEN Administration Sodium Chloride 10 ml 09/30/20 03:41 Sodium Chloride 0.9% 10 Ml Flush Syringe IV PRN PRN LINE FLUSH
--- NOTE | 2020-09-30 10:51 | Electrocardiograph Report ---
[facility] Test Date: 2020-09-29 Test Time: 21:41:40 Pat Name: SANJIV HALL Department: Room: A353 1 Gender: F Configuration Management Specialist: MIKE : [id number] Requested By: MAXX MARIE Order Number: [id number] Reading MD: Azar Canales Measurements Intervals Marquez Rate: 72 P: 33 KS: 172 QRS: 38 QRSD: 87 T: 15 QT: 454 QTc: 499 Interpretive Statements Sinus rhythm non specific st-t No previous ECG available for comparison Electronically Signed On 09-30-2020 10:51:02 EDT by Azar Canales
[2020-09-30] MEDS ORDERED: LORazepam 2 MG/ML VIAL IV ONE (20:39)
[2020-10-01] MEDS: cefTRIAXone/NS 1 GM/50 ML 1 GM/50 ML BAG IV SCH (03:29)
[2020-10-01 05:25] LABS: Basophils % (Auto) 0.7 % (0.0-1.8); Eosinophils # (Auto) 0.2 K/mm3 (0.0-0.4); Eosinophils % (Auto) 3.1 % (0.0-4.3); Hematocrit 42.5 % (30.3-42.9); Hemoglobin 14.7 gm/dl (10.1-14.3); Lymphocytes # (Auto) 1.3 K/mm3 (1.2-5.4); Lymphocytes % (Auto) 21.8 % (13.4-35.0); Mean Corpuscular HGB Conc 35 % (30-34); Mean Corpuscular Volume 85 fl (79-97); Monocytes # (Auto) 0.6 K/mm3 (0.0-0.8); Monocytes % (Auto) 9.6 % (0.0-7.3); Platelet Count 145 K/mm3 (140-440); Red Blood Count 5.01 M/mm3 (3.65-5.03); Red Cell Distribution Width 13.8 % (13.2-15.2)
[2020-10-01 05:42] LABS: Blood Urea Nitrogen 22 mg/dL (7-17); Calcium 9.2 mg/dL (8.4-10.2); Hemolysis Index 5
[2020-10-01 05:44] LABS: BUN/Creatinine Ratio 31
[2020-10-01] MEDS: INSULIN LISPRO 100 UNIT/ML SUB-Q SCH ×4 (08:12→23:56)
--- NOTE | 2020-10-01 08:23 | Progress Note ---
Assessment and Plan Assessment and plan: --Acute metabolic encephalopathy; present on admission Factorial possible dehydration, dementia, possible UTI CT head negative for acute abnormality Follow cultures, continue empiric antibiotics --Possible urinary tract infection UA analysis consistent with UTI Continue empiric antibiotics Follow cultures --Dehydration; Gentle IV hydration, encourage plenty of oral fluids Closely monitor --History of HTN; moderate control Continue current antihypertensives As needed hydralazine --Type II DM; Accu-Chek sliding scale coverage ADA diet Insulin as needed Check A1c, diabetic diet and diabetic education --History of CHF; Resume antifailure medications Input output monitoring Cardiology consult if needed --DVT prophylaxis; subcu heparin --Full CODE STATUS We will closely monitor the patient and adjust management as needed Plan of care reviewed with the patient and her nurse PT evaluation Possible discharge home tomorrow if stable I called patient's spouse Mr. Thomas and discussed patient's condition, tests and reports, treatment plan He had many questions answered all of them, please planning to visit her tomorrow History Interval history: I have seen and examined the patient at the bedside this morning Patient's chart and medications reviewed Patient wants to go home confused and agitated Getting out of the bed Vital signs stable Hospitalist Physical - Constitutional Vitals: Temp Pulse Resp BP Pulse Ox 97.9 F 58 L 18 148/58 99 10/01/20 04:57 10/01/20 04:57 10/01/20 04:57 10/01/20 04:57 10/01/20 04:57 General appearance: Present: mild distress, well-nourished, obese, other (Agitated and confused) - EENT Eyes: Present: PERRL, EOM intact - Neck Neck: Present: supple, normal ROM - Respiratory Respiratory effort: normal Respiratory: bilateral: diminished, negative: rales, rhonchi, wheezing - Cardiovascular Rhythm: regular Heart Sounds: Present: S1 & S2 - Extremities Extremities: no ischemia, No edema - Abdominal General gastrointestinal: soft, non-tender, non-distended, normal bowel sounds - Integumentary Integumentary: Present: clear, warm - Psychiatric Psychiatric: appropriate mood/affect, depressed - Neurologic Neurologic: CNII-XII intact, moves all extremities Results - Labs CBC & Chem 7: 10/01/20 05:03 10/01/20 05:03 Labs: Laboratory Last Values WBC 5.9 K/mm3 (4.5-11.0) 10/01/20 05:03 RBC 5.01 M/mm3 (3.65-5.03) 10/01/20 05:03 Hgb 14.7 gm/dl (10.1-14.3) H 10/01/20 05:03 Hct 42.5 % (30.3-42.9) 10/01/20 05:03 MCV 85 fl (79-97) 10/01/20 05:03 MCH 29 pg (28-32) 10/01/20 05:03 MCHC 35 % (30-34) H 10/01/20 05:03 RDW 13.8 % (13.2-15.2) 10/01/20 05:03 Plt Count 145 K/mm3 (140-440) 10/01/20 05:03 Lymph % (Auto) 21.8 % (13.4-35.0) 10/01/20 05:03 Rowan % (Auto) 9.6 % (0.0-7.3) H 10/01/20 05:03 Eos % (Auto) 3.1 % (0.0-4.3) 10/01/20 05:03 Baso % (Auto) 0.7 % (0.0-1.8) 10/01/20 05:03 Lymph # (Auto) 1.3 K/mm3 (1.2-5.4) 10/01/20 05:03 Rowan # (Auto) 0.6 K/mm3 (0.0-0.8) 10/01/20 05:03 Eos # (Auto) 0.2 K/mm3 (0.0-0.4) 10/01/20 05:03 Baso # (Auto) 0.0 K/mm3 (0.0-0.1) 10/01/20 05:03 Seg Neutrophils % 64.8 % (40.0-70.0) 10/01/20 05:03 Seg Neutrophils # 3.8 K/mm3 (1.8-7.7) 10/01/20 05:03 Sodium 140 mmol/L (137-145) 10/01/20 05:03 Potassium 3.5 mmol/L (3.6-5.0) L 10/01/20 05:03 Chloride 101.3 mmol/L (98-107) 10/01/20 05:03 Carbon Dioxide 30 mmol/L (22-30) 10/01/20 05:03 Anion Gap 12 mmol/L 10/01/20 05:03 BUN 22 mg/dL (7-17) H 10/01/20 05:03 Creatinine 0.7 mg/dL (0.6-1.2) 10/01/20 05:03 Estimated GFR > 60 ml/min 10/01/20 05:03 BUN/Creatinine Ratio 31 % 10/01/20 05:03 Glucose 108 mg/dL (65-100) H 10/01/20 05:03 POC Glucose 174 mg/dL (70-105) H 09/30/20 21:50 Hemoglobin A1c 7.1 % (4-6) H 09/30/20 07:12 Calcium 9.2 mg/dL (8.4-10.2) 10/01/20 05:03 Total Bilirubin 0.50 mg/dL (0.1-1.2) 09/29/20 21:35 AST 26 units/L (5-40) 09/29/20 21:35 ALT 14 units/L (7-56) 09/29/20 21:35 Alkaline Phosphatase 102 units/L (35-129) 09/29/20 21:35 Total Protein 6.4 g/dL (6.3-8.2) 09/29/20 21:35 Albumin 4.1 g/dL (3.9-5) 09/29/20 21:35 Albumin/Globulin Ratio 1.8 % 09/29/20 21:35 Urine Color Yellow (Yellow) 09/29/20 Unknown Urine Turbidity Cloudy (Clear) 09/29/20 Unknown Urine pH 6.0 (5.0-7.0) 09/29/20 Unknown Ur Specific [place] 1.019 (1.003-1.030) 09/29/20 Unknown Urine Protein 30 mg/dl mg/dL (Negative) 09/29/20 Unknown Urine Glucose (UA) 50 mg/dL (Negative) 09/29/20 Unknown Urine Ketones 20 mg/dL (Negative) 09/29/20 Unknown Urine Blood Sm (Negative) 09/29/20 Unknown Urine Nitrite Neg (Negative) 09/29/20 Unknown Urine Bilirubin Neg (Negative) 09/29/20 Unknown Urine Urobilinogen < 2.0 mg/dL (<2.0) 09/29/20 Unknown Ur Leukocyte Esterase Lg (Negative) 09/29/20 Unknown Urine WBC (Auto) 131.0 /HPF (0.0-6.0) H 09/29/20 Unknown Urine RBC (Auto) 9.0 /HPF (0.0-6.0) 09/29/20 Unknown U Epithel Cells (Auto) 5.0 /HPF (0-13.0) 09/29/20 Unknown Urine Bacteria (Auto) 1+ /HPF (Negative) 09/29/20 Unknown Urine Mucus Few /HPF 09/29/20 Unknown Jaeger/IV: Voiding Method Toilet Active Medications - Current Medications Current Medications: Generic Name Dose Route Start Last Admin Trade Name Freq PRN Reason Stop Dose Admin Acetaminophen 650 mg 09/30/20 03:41 Acetaminophen 325 Mg Tab PO Q4H PRN Pain MILD(1-3)/Fever >100.5/GASCA Aspirin 81 mg 09/30/20 10:00 09/30/20 09:23 Aspirin Ec 81 Mg Tab PO 81 mg QDAY MARLEN Administration Atorvastatin Calcium 40 mg 09/30/20 22:00 09/30/20 21:01 Atorvastatin 20 Mg Tab PO 40 mg QHS MARLEN Administration Clopidogrel Bisulfate 75 mg 09/30/20 10:00 09/30/20 09:23 Clopidogrel 75 Mg Tab PO 75 mg QDAY MARLEN Administration Dextrose 0 ml 09/30/20 03:41 Dextrose 50% In Water (25gm) 50 Ml Syringe IV Q30MIN PRN Hypoglycemia Protocol Docusate Sodium 100 mg 09/30/20 10:00 09/30/20 21:01 Docusate Sodium 100 Mg Cap PO 100 mg BID MARLEN Administration Famotidine 20 mg 09/30/20 10:00 09/30/20 21:01 Famotidine 20 Mg Tab PO 20 mg BID MARLEN Administration Furosemide 40 mg 09/30/20 10:00 09/30/20 09:23 Furosemide 40 Mg Tab PO 40 mg QDAY MARLEN Administration Heparin Sodium (Porcine) 5,000 unit 09/30/20 10:00 09/30/20 21:01 Heparin 5,000 Unit/1 Ml Vial SUB-Q 5,000 unit Q12HR MARLEN Administration Hydralazine HCl 25 mg 09/30/20 10:00 09/30/20 21:01 Hydralazine 25 Mg Tab PO 25 mg BID MARLEN Administration Ceftriaxone Sodium 1 gm in 50 mls @ 100 mls/hr 09/30/20 04:00 10/01/20 03:29 Rocephin/Ns 1 Gm/50 Ml IV 100 mls/hr Q24H MARLEN Administration Protocol Insulin Human Lispro 0 unit 09/30/20 07:30 10/01/20 08:12 Insulin Lispro 100 Unit/Ml SUB-Q Not Given ACHS MARLEN Protocol Metoprolol Succinate 25 mg 09/30/20 10:00 09/30/20 21:01 Metoprolol Succinate Xl 25 Mg Tab PO 25 mg BID MARLEN Administration Ondansetron HCl 4 mg 09/30/20 03:41 Ondansetron 4 Mg/2 Ml Inj IV Q6H PRN Nausea And Vomiting Sodium Chloride 10 ml 09/30/20 10:00 09/30/20 21:01 Sodium Chloride 0.9% 10 Ml Flush Syringe IV 10 ml BID MARLEN Administration Sodium Chloride 10 ml 09/30/20 03:41 Sodium Chloride 0.9% 10 Ml Flush Syringe IV PRN PRN LINE FLUSH
[2020-10-01] MEDS: METOPROLOL SUCCINATE XL 25 MG TAB PO SCH ×2 (10:28→23:18)
[2020-10-01] MEDS: FAMOTIDINE 20 MG TAB PO SCH ×2 (10:28→23:17)
[2020-10-01] MEDS: FUROSEMIDE 40 MG TAB PO SCH (10:28)
[2020-10-01] MEDS: CLOPIDOGREL 75 MG TAB PO SCH (10:28)
[2020-10-01] MEDS: hydrALAZINE 25 MG TAB PO SCH ×2 (10:28→23:20)
[2020-10-01] MEDS: ASPIRIN EC 81 MG TAB PO SCH (10:28)
[2020-10-01] MEDS: HEPARIN 5,000 UNIT/1 ML VIAL SUB-Q SCH ×2 (10:28→23:17)
[2020-10-01] MEDS: DOCUSATE SODIUM 100 MG CAP PO SCH ×2 (10:28→23:18)
[2020-10-01] MEDS ORDERED: HALOPERIDOL LACTATE 5 MG/1 ML INJ IM PRN (12:20)
--- NOTE | 2020-10-01 18:35 | Event Note ---
Date: 10/01/20 I called patient's spouse Mr. Thomas and discussed patient's condition, tests and reports, treatment plan He had many questions answered all of them, please planning to visit her tomorrow
[2020-10-01] MEDS ORDERED: D5W/0.45% NACL 1,000 ML IV SCH (22:00)
[2020-10-02] MEDS: cefTRIAXone/NS 1 GM/50 ML 1 GM/50 ML BAG IV SCH (03:20)
[2020-10-02] MEDS: INSULIN LISPRO 100 UNIT/ML SUB-Q SCH ×2 (08:44→15:10)
--- NOTE | 2020-10-02 11:01 | Discharge Summary ---
Providers - Providers Date of Admission: 09/30/20 03:17 Date of discharge: 10/02/20 Attending physician: ORIANA PRESLEY 09/30/20 03:43 Physical Therapy Evaluation and Treat [CONS] Routine Comment: Reason For Exam: eval, acute encephalopathy, advanced age 0509/30/20 03:44 Occupational Therapy Evaluate and Treat [CONS] Routine Comment: Reason For Exam: eval, acute encephalopathy, advanced age Primary care physician: INSURANCE ADMINISTRATIVE ASSISTANT Hospitalization Reason for admission: Altered level of consciousness/metabolic encephalopathy Condition: Stable Pertinent studies: CT head without contrast; no acute abnormality noted Hospital course: 89-year-old frail female patient with significant past medical history of CVA hypertension, diabetes mellitus, congestive heart failure, arthritis was admitted through emergency room with altered level of consciousness and some hallucinations 1 day duration. Patient was initially evaluated CT head without contrast was negative for acute abnormality Work-up is consistent with UTI and some dehydration Admitted to the hospital appropriately managed/started on empiric antibiotics Rocephin, evaluated by PT no PT needs Case management evaluated the patient, discussed with the family for home health services reports that patient is independent., Patient symptoms significantly improved today she is alert awake oriented x3 ambulatory and tolerating oral nutrition Hemodynamically and clinically stable at discharge, Discharge diagnosis; --Acute metabolic encephalopathy; POA resolved Multifactorial , dehydration , UTI, possible mild dementia, CT head negative for acute abnormality Today patient is alert awake oriented x3 --Urinary tract infection Received 3 days of Rocephin Patient will continue oral antibiotics upon discharge --Dehydration; POA, resolved --History of HTN; moderate control Continue current antihypertensives --Type II DM; Accu-Chek sliding scale coverage ADA diet A1c 7.1, patient is on Metformin --History of chronic diastolic CHF; Continue antifailure medications --DVT prophylaxis; subcu heparin Disposition: [id number] HOME UNDER HOME [facility] Final Discharge Diagnosis (Prints w/discharge instructions): Acute metabolic encephalopathy/ resolved. Urinary tract infection. Dehydration/resolved. Type 2 diabetes mellitus. Hypertension. Chronic diastolic CHF Time spent for discharge: 35 min Core Measure Documentation - Palliative Care Palliative Care/ Comfort Measures: Not Applicable - Core Measures Any of the following diagnoses?: none Exam - Constitutional Vitals: Temp Pulse Resp BP Pulse Ox 98.2 F 64 17 162/56 96 10/02/20 04:11 10/02/20 06:49 10/02/20 06:49 10/02/20 06:49 10/02/20 06:49 General appearance: Present: no acute distress, well-nourished - EENT Eyes: Present: PERRL, EOM intact - Neck Neck: Present: supple, normal ROM - Respiratory Respiratory effort: normal Respiratory: bilateral: diminished, negative: rales, rhonchi, wheezing - Cardiovascular Rhythm: regular Heart Sounds: Present: S1 & S2 - Extremities Extremities: no ischemia, No edema - Abdominal General gastrointestinal: Present: soft, non-tender, non-distended, normal bowel sounds - Integumentary Integumentary: Present: clear, warm - Musculoskeletal Musculoskeletal: strength equal bilaterally, generalized weakness - Psychiatric Psychiatric: appropriate mood/affect, cooperative - Neurologic Neurologic: moves all extremities Plan Activity: advance as tolerated, fall precautions Diet: diabetic Additional Instructions: If you have worsening symptoms contact MD or go to emergency room as needed. Fall precautions. Advised plenty oral fluids Follow up with: PRIMARY CARE, [Primary Care Provider] - 3-5 Days Prescriptions: cefUROXime [Ceftin] 250 mg PO Q12H #14 tablet
[2020-10-02] MEDS: ASPIRIN EC 81 MG TAB PO SCH (11:31)
[2020-10-02] MEDS: hydrALAZINE 25 MG TAB PO SCH (11:31)
[2020-10-02] MEDS: FAMOTIDINE 20 MG TAB PO SCH (11:31)
[2020-10-02] MEDS: CLOPIDOGREL 75 MG TAB PO SCH (11:32)
[2020-10-02] MEDS: FUROSEMIDE 40 MG TAB PO SCH (11:32)
[2020-10-02] MEDS: HEPARIN 5,000 UNIT/1 ML VIAL SUB-Q SCH (11:32)
[2020-10-02] MEDS: METOPROLOL SUCCINATE XL 25 MG TAB PO SCH (11:32)
[2020-10-02] MEDS: DOCUSATE SODIUM 100 MG CAP PO SCH (11:32)
[2020-10-02 11:51] VITALS: BP 153/59
== END 2020-10-02 15:10 | disposition home health service (06) | DRG 689 ==
LOC: ED 19:45 → 3A 09-30 03:17
PROVIDERS: ADMIT Hospitalist; ATTEND Internal Medicine
DX: N39.0 Urinary tract infection, site not specified (principal); G93.41 Metabolic encephalopathy; I50.32 Chronic diastolic (congestive) heart failure; E86.0 Dehydration; E11.9 Type 2 diabetes mellitus without complications; I11.0 Hypertensive heart disease with heart failure; M19.90 Unspecified osteoarthritis, unspecified site; F03.90 Unspecified dementia, unspecified severity, without behavioral disturbance, psychotic disturbance, mood disturbance, and anxiety; Z82.49 Family history of ischemic heart disease and other diseases of the circulatory system; Z79.82 Long term (current) use of aspirin; Z79.899 Other long term (current) drug therapy; I25.2 Old myocardial infarction; Z86.73 Personal history of transient ischemic attack (TIA), and cerebral infarction without residual deficits; Z95.5 Presence of coronary angioplasty implant and graft
CPT/HCPCS: 36415; 70450; 80048; 80053; 81001; 82962; 83036; 85025; 87086; 93005; 96365; G0378; A9270-GY; J0696; J1630; J1644; J1815; J2060; J7030